=== PATIENT | female | born 1940 | race Caucasian/White ===

== ENCOUNTER 2020-06-11 17:36 | Inpatient (IN) | payer OTHER ==
[2020-06-11 19:05] LABS: Absolute Lymphocytes (CBC) 0.8 K/uL (0.7-4.9); Basophils % 0.1 % (0-1.3); Hematocrit 34.5 % (36.0-45.0); Lymphocytes % 11.1 % (15.3-44.8); MPV 9.6 fL (7.6-11.3); RBC Red Blood Cell Count 3.71 M/uL (3.86-4.86)
[2020-06-11 19:10] LABS: Protime INR 0.97
[2020-06-11 19:29] LABS: ALT/SGPT 15 U/L (12-78); AST/SGOT 25 U/L (15-37); Albumin 3.6 g/dL (3.4-5.0); Alkaline Phosphatase 59 U/L (45-117); Amylase 54 U/L (25-115); BUN Blood Urea Nitrogen 35 mg/dL (7-18); Bicarbonate 29 mmol/L (21-32); Bilirubin Direct 0.2 mg/dL (0-0.2); Bilirubin Total 0.6 mg/dL (0.2-1.0); CKMB Creatine Kinase MB < 1.0 ng/mL (0.3-3.6); Creatine Phosphokinase 103 U/L (26-192); Glucose Level 160 mg/dL (74-106); Lipase 169 U/L (73-393); Protein, Total 8.2 g/dL (6.4-8.2); Sodium Level 133 mmol/L (136-145); Troponin (Emerg Dept Use Only) < 0.02 ng/mL (0.0-0.045)
--- NOTE | 2020-06-11 19:34 | EDPHYS ---
Physician Documentation [facility] Name: Leigh Ann Galindo Age: 79 yrs Sex: Female : 1940 Arrival Date: 06/11/2020 Time: 17:40 Bed 2 Private MD: Justin Cordero R ED Physician Laurent Steel HPI: 06/11 18:59 This 79 yrs old Female presents to ER via Ambulatory with complaints of irais Abdominal Pain - bloating/indigestion. 18:59 The patient presents with abdominal pain abdominal distention in the upper abdomen, in irais the lower abdomen. Onset: The symptoms/episode began/occurred 2 day(s) ago. The patient presents to the emergency department with nausea, vomiting, abdominal pain, of the right upper quadrant, left upper quadrant, right lower quadrant and left lower quadrant. Onset: The symptoms/episode began/occurred 2 day(s) ago. Possible causes: unknown. The symptoms are aggravated by nothing. pressure, food , The symptoms are alleviated by nothing. remaining still. abdominal pain and vomiting, low grade fever. Associated signs and symptoms: Pertinent positives: abdominal pain, fever, nausea, vomiting. Associated signs and symptoms: Pertinent positives: nausea and vomiting, fever, vomiting. Historical: - Allergies: 18:10 No Known Allergies; em - PMHx: 18:10 Hypertension; "hemorrhoid cancer"; em - PSHx: 18:10 None; em - Immunization history:: Adult Immunizations not up to date. - Social history:: Smoking status: Patient denies any tobacco usage or history of. - Family history:: not pertinent. ROS: 18:59 Eyes: Negative for injury, pain, redness, and discharge, ENT: Negative for injury, irais pain, and discharge, Neck: Negative for injury, pain, and swelling, Respiratory: Negative for shortness of breath, cough, wheezing, and pleuritic chest pain, Back: Negative for injury and pain, : Negative for injury, bleeding, discharge, and swelling, MS/Extremity: Negative for injury and deformity, Skin: Negative for injury, rash, and discoloration, Neuro: Negative for headache, weakness, numbness, tingling, and seizure, Psych: Negative for depression, anxiety, suicide ideation, homicidal ideation, and hallucinations, Allergy/Immunology: Negative for hives, rash, and allergies, Endocrine: Negative for neck swelling, polydipsia, polyuria, polyphagia, and marked weight changes, Hematologic/Lymphatic: Negative for swollen nodes, abnormal bleeding, and unusual bruising. 18:59 Constitutional: Positive for body aches, chills, fatigue, malaise. 18:59 Cardiovascular: Positive for palpitations. 18:59 Respiratory: Negative for cough, dyspnea on exertion, orthopnea, shortness of breath. 18:59 Abdomen/GI: Positive for abdominal pain, nausea and vomiting, nausea, vomiting, abdominal cramps, abdominal distension. Exam: 18:59 Constitutional: This is a well developed, well nourished patient who is awake, alert, irais and in no acute distress. Head/Face: Normocephalic, atraumatic. Eyes: Pupils equal round and reactive to light, extra-ocular motions intact. Lids and lashes normal. Conjunctiva and sclera are non-icteric and not injected. Cornea within normal limits. Periorbital areas with no swelling, redness, or edema. ENT: Nares patent. No nasal discharge, no septal abnormalities noted. Tympanic membranes are normal and external auditory canals are clear. Oropharynx with no redness, swelling, or masses, exudates, or evidence of obstruction, uvula midline. Mucous membranes moist. Neck: Trachea midline, no thyromegaly or masses palpated, and no cervical lymphadenopathy. Supple, full range of motion without nuchal rigidity, or vertebral point tenderness. No Meningismus. Chest/axilla: Normal chest wall appearance and motion. Nontender with no deformity. No lesions are appreciated. Abdomen/GI: Soft, non-tender, with normal bowel sounds. No distension or tympany. No guarding or rebound. No evidence of tenderness throughout. Back: No spinal tenderness. No costovertebral tenderness. Full range of motion. Female : Normal external genitalia. Skin: Warm, dry with normal turgor. Normal color with no rashes, no lesions, and no evidence of cellulitis. MS/ Extremity: Pulses equal, no cyanosis. Neurovascular intact. Full, normal range of motion. Neuro: Awake and alert, GCS 15, oriented to person, place, time, and situation. Cranial nerves II-XII grossly intact. Motor strength 5/5 in all extremities. Sensory grossly intact. Cerebellar exam normal. Normal gait. Psych: Awake, alert, with orientation to person, place and time. Behavior, mood, and affect are within normal limits. 18:59 Cardiovascular: Rate: tachycardic, Rhythm: regular, Pulses: Pulses are 4+ in bilateral radial, brachial, femoral, popliteal, posterior tibial and and dorsalis pedis arteries.. Heart sounds: normal, Edema: is not appreciated, JVD: is not appreciated. 18:59 Respiratory: the patient does not display signs of respiratory distress, Respirations: normal, Breath sounds: are clear throughout. 18:59 Abdomen/GI: Inspection: distension, Bowel sounds: active, Palpation: moderate abdominal tenderness, in all quadrants, Liver: no appreciated palpable abnormalities, Hernia: not appreciated. 19:03 ECG was reviewed by the Attending Physician. irais Vital Signs: 18:06 BP 88 / 69; Pulse 102; Resp 20 S; Temp 99.4(O); Pulse Ox 96% on R/A; Weight 70.31 kg; em Height 5 ft. 7 in. (170.18 cm); Pain 7/10; 20:33 BP 104 / 56; Pulse 79; Resp 19; Pulse Ox 95% on R/A; ea 21:30 Pulse 86; Resp 18; Temp 98.8(O); Pulse Ox 98% ; rv 22:51 BP 110 / 60; Pulse 80; Resp 18; Pulse Ox 98% on R/A; ea 18:06 Body Mass Index 24.28 (70.31 kg, 170.18 cm) em MDM: 18:19 Patient medically screened. irais 19:34 Differential Diagnosis sepsis. Differential diagnosis: Nonspecific abd pain, irais cholecystitis, pancreatitis, appendicitis, diverticulitis, viral gastroenteritis, gastroenteritis, AAA, bowel obstruction, cholecystitis, Cholelithiasis, diverticulitis, Mesenteric ischemia or infarction, pancreatitis, Peptic Ulcer Disease, Peritonitis, Pyelonephritis, Ureterolithiasis, urinary tract infection. Data reviewed: vital signs, nurses notes, EMS record, lab test result(s), amylase and lipase, CBC, electrolytes, hepatic panel, urinalysis, EKG, radiologic studies, CT scan, plain films. Data interpreted: wall taper helper: rate is 102 beats/min, Pulse oximetry: on room air is 96 %. Test interpretation: by ED physician or midlevel provider: ECG, plain radiologic studies. Counseling: I had a detailed discussion with the patient and/or guardian regarding: the historical points, exam findings, and any diagnostic results supporting the discharge/admit diagnosis, lab results, radiology results, the need for further work-up and treatment in the hospital. ED course: fever , abd pain, vomiting,voluntary guarding, ct pending, acute renal failure. 20:43 Physician consultation: Shaggy Mayers MD and will see patient in inpatient room, [facility] tomorrow. ED course: pt improved, pain decreased. 06/11 18:42 Order name: Amylase, Serum; Complete Time: 19:31 06/11 18:42 Order name: Basic Metabolic Panel; Complete Time: 19:31 sv 06/11 18:42 Order name: Blood Culture Adult (2) sv 06/11 18:42 Order name: CBC with Diff; Complete Time: 19:28 06/11 18:42 Order name: Ckmb; Complete Time: 19:31 sv 06/11 18:42 Order name: CPK; Complete Time: 19:31 06/11 18:42 Order name: Lactate; Complete Time: 19:28 06/11 18:42 Order name: LFT's; Complete Time: 19:31 sv 06/11 18:42 Order name: Lipase; Complete Time: 19:31 sv 06/11 18:42 Order name: Procalcitonin; Complete Time: 20:23 sv 06/11 18:42 Order name: Protime (+inr); Complete Time: 19:28 sv 06/11 18:42 Order name: Ptt, Activated; Complete Time: 19:28 06/11 18:42 Order name: Troponin (emerg Dept Use Only); Complete Time: 19:31 06/11 18:42 Order name: Urine Microscopic Only 06/11 18:42 Order name: Chest Single View XRAY; Complete Time: 20:23 06/11 18:42 Order name: Cardiac monitoring; Complete Time: 19:01 06/11 18:42 Order name: EKG - Nurse/Tech; Complete Time: 19:01 06/11 18:58 Order name: Magnesium; Complete Time: 20:23 [facility] 06/11 18:58 Order name: NT PRO-BNP; Complete Time: 20:23 [facility] 06/11 18:58 Order name: EKG; Complete Time: 18:58 [facility] 06/11 19:42 Order name: Abdomen ; Complete Time: 20:23 EDMS 06/11 18:42 Order name: IV Saline Lock - Large Bore; Complete Time: 19:01 sv 06/11 18:42 Order name: Labs collected and sent; Complete Time: 19:01 sv 06/11 18:42 Order name: O2 Per Protocol; Complete Time: 19:01 sv 06/11 18:42 Order name: O2 Sat Monitoring; Complete Time: 19:01 sv 06/11 18:58 Order name: IV Saline Lock; Complete Time: 19:01 irais 06/11 20:41 Order name: NG Tube; Complete Time: 20:53 irais 06/11 20:45 Order name: NPO; Complete Time: 20:53 irais EC:03 Rate is 89 beats/min. Rhythm is regular. QRS [place] is Normal. NH interval is normal. QRS irais interval is normal. QT interval is normal. No Q waves. T waves are Normal. No ST changes noted. Clinical impression: NSR w/ Non-specific ST/T Changes and No evidence of ischemia. Interpreted by me. Reviewed by me. Administered Medications: 19:15 Drug: morphine 2 mg Route: IVP; Site: left antecubital; ea 21:28 Follow up: Response: No adverse reaction; Marked relief of symptoms; Pain is decreased; rv RASS: Alert and Calm (0) 20:15 Drug: Rocephin 1 grams Route: IV; Rate: per protocol; Site: left antecubital; ea 21:28 Follow up: Response: No adverse reaction; IV Status: Completed infusion rv 20:31 Drug: NS 0.9% (30 ml/kg) 30 ml/kg Route: IV; Rate: bolus; Site: left antecubital; ea 21:28 Follow up: IV Status: Completed infusion rv 21:29 Follow up: IV Intake: 2000ml rv 20:31 Drug: Pepcid 20 mg Route: IVP; Site: left antecubital; ea 21:27 Follow up: Response: No adverse reaction rv 20:32 Drug: Zofran (Ondansetron) 4 mg Route: IVP; Site: left antecubital; ea 21:28 Follow up: Response: No adverse reaction rv 20:32 Drug: Flagyl 500 mg Volume: 100 ml; Route: IVPB; Rate: 200 ml/hr; Infused Over: 30 ea mins; Site: left antecubital; 21:28 Follow up: IV Status: Completed infusion rv 21:45 Drug: Magnesium Sulfate 2 grams Route: IVPB; Infused Over: 2 hrs; Site: left ea antecubital; 22:23 Follow up: IV Status: Infusion continued upon admission rv Disposition: 06/11/20 19:34 Hospitalization ordered by Scott Hughes for Inpatient Admission. Preliminary diagnosis are Abdominal tenderness, Fever, unspecified, Unspecified kidney failure - acute on chronic, Vomiting, Hypomagnesemia, Other intestinal obstruction - mechanical small bowel obstruction. - Bed requested for Telemetry/MedSurg (Inpatient). - Status is Inpatient Admission. ea - Condition is Stable. - Problem is new. - Symptoms have improved. Signatures: Dispatcher [employer] EDMT Joan Liu, RN Laurent Nguyen MD MD cha Munoz, Edgar, RN RN em Nino Lawler, EXECUTIVE VICE PRESIDENT OF SALES-C EXECUTIVE VICE PRESIDENT OF SALES-Cla1 Dolly Avila RN RN Rochelle Robles RN RN ea Vicente, Ronaldo RN rv Corrections: (The following items were deleted from the chart) 19:42 18:58 Abdomen Pelvis W Con+CT.RAD.BRZ ordered. EDMT EDMT 20:43 19:34 Hospitalization Ordered by Scott Hughes DO for Inpatient Admission. Preliminary irais diagnosis is Abdominal tenderness; Fever, unspecified; Unspecified kidney failure - acute on chronic; Vomiting. Bed requested for Telemetry/MedSurg (Inpatient). Status is Inpatient Admission. Condition is Stable. Problem is new. Symptoms have improved. irais 21:23 20:43 06/11/2020 19:34 Hospitalization Ordered by Scott Hughes DO for Inpatient cg Admission. Preliminary diagnosis is Abdominal tenderness; Fever, unspecified; Unspecified kidney failure - acute on chronic; Vomiting; Hypomagnesemia; Other intestinal obstruction - mechanical small bowel obstruction. Bed requested for Telemetry/MedSurg (Inpatient). Status is Inpatient Admission. Condition is Stable. Problem is new. Symptoms have improved. irais 22:50 21:23 06/11/2020 19:34 Hospitalization Ordered by Scott Hughes DO for Inpatient ea Admission. Preliminary diagnosis is Abdominal tenderness; Fever, unspecified; Unspecified kidney failure - acute on chronic; Vomiting; Hypomagnesemia; Other intestinal obstruction - mechanical small bowel obstruction. Bed requested for Telemetry/MedSurg (Inpatient). Status is Inpatient Admission. Condition is Stable. Problem is new. Symptoms have improved. cg
--- NOTE | 2020-06-11 19:34 | ER ---
Nurse's Notes [facility] Name: Leigh Ann Galindo Age: 79 yrs Sex: Female : 1940 Arrival Date: 06/11/2020 Time: 17:40 Bed 2 Private MD: Justin Cordero R Diagnosis: Abdominal tenderness;Fever, unspecified;Unspecified kidney failure-acute on chronic;Vomiting;Hypomagnesemia;Other intestinal obstruction-mechanical small bowel obstruction Presentation: 06/11 18:06 Chief complaint: Patient states: lower abd pain started yesterday, N/V, denies fever. em Coronavirus screen: Client denies travel out of the [place] in the last 14 days. Ebola Screen: Patient negative for fever greater than or equal to 101.5 degrees Fahrenheit, and additional compatible Ebola Virus Disease symptoms Patient denies exposure to infectious person. Patient denies travel to an Ebola-affected area in the 21 days before illness onset. No symptoms or risks identified at this time. Initial Sepsis Screen: Does the patient meet any 2 criteria? Systolic BP < 90 mmHg. HR > 90 bpm. Yes Does the patient have a suspected source of infection? Yes: Acute abdominal pain. Risk Assessment: Do you want to hurt yourself or someone else? Patient reports no desire to harm self or others. Onset of symptoms was June 10, 2020. 18:06 Method Of Arrival: Ambulatory em 18:06 Acuity: JESSICA 2 em Historical: - Allergies: 18:10 No Known Allergies; em - PMHx: 18:10 Hypertension; "hemorrhoid cancer"; em - PSHx: 18:10 None; em - Immunization history:: Adult Immunizations not up to date. - Social history:: Smoking status: Patient denies any tobacco usage or history of. - Family history:: not pertinent. Screenin:58 Abuse screen: Denies threats or abuse. Denies injuries from another. Nutritional sv screening: No deficits noted. Tuberculosis screening: No symptoms or risk factors identified. Fall Risk None identified. Assessment: 18:12 Reassessment: code sepsis called. em 18:50 General: Appears in no apparent distress. uncomfortable, well developed, Behavior is sv calm, cooperative, appropriate for age. Pain: Complains of pain in abdomen Pain currently is 7 out of 10 on a pain scale. Quality of pain is described as bloated Pain began 1 day ago. Is continuous, Also complains of constipation. Neuro: Level of Consciousness is awake, alert, obeys commands, Oriented to person, place, time, situation, Moves all extremities. Full function Gait is steady, Speech is normal. Cardiovascular: Patient's skin is warm and dry. Respiratory: Airway is patent Respiratory effort is even, unlabored, Respiratory pattern is regular, symmetrical. GI: Abdomen is round distended, Abd is soft X 4 quads Abdomen is tender to palpation X 4 quads. Reports constipation, intolerance of fluids, intolerance of food, nausea, vomiting, vomiting brown liquid. Derm: Skin is pink, warm \\T\\ dry. Musculoskeletal: Range of motion: intact in all extremities. 21:30 GI: Bowel sounds present X 4 quads. rv 22:40 Reassessment: Patient and/or family updated on plan of care and expected duration. Pain ea level reassessed. Patient is alert, oriented x 3, equal unlabored respirations, skin warm/dry/pink. Pt admitted to second floor, left ED via stretcher per tech. pt tolerating well. Vital Signs: 18:06 BP 88 / 69; Pulse 102; Resp 20 S; Temp 99.4(O); Pulse Ox 96% on R/A; Weight 70.31 kg; em Height 5 ft. 7 in. (170.18 cm); Pain 7/10; 20:33 BP 104 / 56; Pulse 79; Resp 19; Pulse Ox 95% on R/A; ea 21:30 Pulse 86; Resp 18; Temp 98.8(O); Pulse Ox 98% ; rv 22:51 BP 110 / 60; Pulse 80; Resp 18; Pulse Ox 98% on R/A; ea 18:06 Body Mass Index 24.28 (70.31 kg, 170.18 cm) em ED Course: 17:40 Patient arrived in ED. as 17:40 Justin Cordero MD is Private Physician. as 18:08 Triage completed. em 18:10 Arm band placed on. em 18:19 Laurent Setel MD is Attending Physician. irais 18:50 gambling monitor on. Pulse ox on. NIBP on. Door closed. Head of bed elevated. sv 18:50 Inserted saline lock: 20 gauge in left antecubital area, using aseptic technique. dh3 18:50 Initial lab(s) drawn, by me, sent to lab. First set of blood cultures drawn by me. dh3 18:52 EKG done, by ED staff, reviewed by Laurent Steel MD. sv 18:52 Second set of blood cultures drawn by ED staff. dh3 18:58 Patient has correct armband on for positive identification. Placed in gown. Bed in low sv position. Call light in reach. 19:00 Report given to Dawit AGUSTIN and Rochelle AGUSTIN. sv 19:32 Scott Hughes DO is Hospitalizing Provider. irais 19:54 Rochelle Robles, NIKOLE is Primary Nurse. ea 19:58 Chest Single View XRAY In Process Unspecified. EDMS 19:58 Abdomen In Process Unspecified. EDMS 21:15 NGT: inserted 16 Fr. via right nare. verified placement of air over stomach, to rv intermittent suction. Returned gastric contents. Amount of gastric contents removed by suction 500ml. Patient tolerated well. 21:29 No provider procedures requiring assistance completed. IV is patent, with fluids rv infusing freely, with good blood return, Patient admitted, IV remains in place. Administered Medications: 19:15 Drug: morphine 2 mg Route: IVP; Site: left antecubital; ea 21:28 Follow up: Response: No adverse reaction; Marked relief of symptoms; Pain is decreased; rv RASS: Alert and Calm (0) 20:15 Drug: Rocephin 1 grams Route: IV; Rate: per protocol; Site: left antecubital; ea 21:28 Follow up: Response: No adverse reaction; IV Status: Completed infusion rv 20:31 Drug: NS 0.9% (30 ml/kg) 30 ml/kg Route: IV; Rate: bolus; Site: left antecubital; ea 21:28 Follow up: IV Status: Completed infusion rv 21:29 Follow up: IV Intake: 2000ml rv 20:31 Drug: Pepcid 20 mg Route: IVP; Site: left antecubital; ea 21:27 Follow up: Response: No adverse reaction rv 20:32 Drug: Zofran (Ondansetron) 4 mg Route: IVP; Site: left antecubital; ea 21:28 Follow up: Response: No adverse reaction rv 20:32 Drug: Flagyl 500 mg Volume: 100 ml; Route: IVPB; Rate: 200 ml/hr; Infused Over: 30 ea mins; Site: left antecubital; 21:28 Follow up: IV Status: Completed infusion rv 21:45 Drug: Magnesium Sulfate 2 grams Route: IVPB; Infused Over: 2 hrs; Site: left ea antecubital; 22:23 Follow up: IV Status: Infusion continued upon admission rv Intake: 21:29 IV: 2000ml; Total: 2000ml. rv Outcome: 19:34 Decision to Hospitalize by Provider. [facility] 21:30 Admitted to Med/surg room 207. rv 21:30 Condition: stable 21:30 Instructed on the need for admit. 22:24 Admitted to Med/surg accompanied by tech, via stretcher, with chart, Report called to rv MARISA RN 22:50 Patient left the ED. ea Signatures: Dispatcher [employer] Joan Anne, RN RN Laurent Crowley MD MD cha Munoz, Edgar, RN Pilar Oh Deanna [facility] Rochelle Robles, RN Dawit Maher ea, RN RN rv Corrections: (The following items were deleted from the chart) 18:59 18:56 Inserted saline lock: 20 gauge in left antecubital area, using aseptic technique. 3 3
[2020-06-11] MEDS ORDERED: MORPHINE 4 MG/ML SYR ONE (19:35)
[2020-06-11] MEDS ORDERED: CEFTRIAXONE/SWI 1gm 1 GM/10 ML SYR ONE (19:36)
[2020-06-11] MEDS ORDERED: FAMOTIDINE 20 MG/2 ML VIAL IV ONE (19:36)
[2020-06-11] MEDS ORDERED: ACETAMINOPHEN 650MG/RECT SUPP PR ONE (19:36)
[2020-06-11] MEDS ORDERED: NA CHLORIDE 0.9% 2,000 ML ONE ×2 (19:36→20:26)
[2020-06-11] MEDS ORDERED: ONDANSETRON 4 MG/2 ML VIAL ONE (19:36)
[2020-06-11] MEDS ORDERED: METRONIDAZOLE 500mg IVPB 500 MG/100 ML BAG IV ONE (19:36)
--- NOTE | 2020-06-11 20:04 | RAD REPORT ---
EXAM DESCRIPTION: RAD - Chest Single View - 06/11/2020 7:57 pm CLINICAL HISTORY: code sepsis Chest pain. COMPARISON: Chest Pa And Lat (2 Views) dated 11/01/2019; Chest Pa And Lat (2 Views) dated 10/03/2019; C HEST SINGLE VIEW dated 01/02/2012; CHEST SINGLE VIEW dated 11/10/2011 FINDINGS: Portable technique limits examination quality. The lungs are grossly clear. The heart is normal in size. No displaced fractures. IMPRESSION: No acute intrathoracic process suspected.
--- NOTE | 2020-06-11 20:10 | RAD REPORT ---
EXAM DESCRIPTION: CT - Abdomen Pelvis Wo Contrast - 06/11/2020 7:58 pm CLINICAL HISTORY: Abdominal pain. ABD PAIN COMPARISON: CT ABD PELVIS W CONTRAST dated 05/02/2013 TECHNIQUE: CT imaging of the abdomen and pelvis was performed without contrast. Solid organ and vasc ular assessment is limited due to lack of IV contrast. All CT scans are performed using dose optimization technique as appropriate and may include automated exposure control or mA/KV adjustment according to patient size. FINDINGS: The lower lung guaman are clear. The liver, spleen, pancreas, adrenal glands are within normal limits for a limited non-contrast exami nation.Small bilateral renal calculi are seen without hydronephrosis. Significant distention of small bowel loops identified with mild free fluid in the abdomen pelvis, co mpatible with moderate mechanical small-bowel obstruction. A discrete point of transition is difficul t to ascertain. No pneumoperitoneum. Within the right aspect of the small bowel mesentery a 2 cm soft tissue lesion is noted which is of unclear etiology but may represent an enlarged lymph node or a sm all mesenteric mass. The appendix is normal. The osseous structures are within normal limits. IMPRESSION: Moderate grade mechanical small bowel obstruction is seen with mild free fluid in the ab domen and pelvis. 2 cm soft tissue lesion is seen in the right aspect of the small bowel mesentery may represent a mese nteric lymph node or small mesenteric mass. Bilateral nephrolithiasis without hydronephrosis. A limited non-contrast examination was performed as detailed.
[2020-06-11 20:18] LABS: Magnesium 1.6 mg/dL (1.8-2.4)
--- NOTE | 2020-06-11 21:13 | P.HP ---
Certification for Inpatient Patient admitted to: Inpatient With expected LOS: >2 Midnights Patient will require the following post-hospital care: None Practitioner: I am a practitioner with admitting privileges, knowledge of patient current condition, hospital course, and medical plan of care. Services: Services provided to patient in accordance with Admission requirements found in Title 42 Section 412.3 of the Code of Federal Regulations <Nino Lawler - Last Filed: 06/11/20 21:05> Patient History Date of Service: 06/11/20 Primary Care Provider: Dr Cordero Reason for admission: Small-bowel obstruction History of Present Illness: 79-year-old female with medical history of hypertension, colon cancer presents the emergency department for abdominal distention, nausea, vomiting. Patient reports that she began to the abdominal pain yesterday morning and has since gotten worse. Patient also reports some abdominal distension. Patient reports history of cancer although she is unaware of the exact location the cancer approximately 7 years ago which she is treated for at that time. Patient was evaluated in the emergency department and found to have a moderate mechanical small bowel obstruction with mild free fluid present. Patient also noted to have acute kidney injury with creatinine of 2.55 and GFR of 18. ED provider wishes to admit patient for further evaluation and management. When I saw the patient in the emergency department she was awake, alert, oriented x4. Patient reports moderate lower abdominal pain with some distention. Bowel sounds diminished. Patient still with some vomiting, will have NG tube placed in the emergency department. Surgery was consulted while patient was in the emergency department and will see the patient. - Past Medical/Surgical History Diabetic: No -: Hypertension -: Colon Ca 2013 Chemo/radiation -: Hysterectomy -: Tubal ligation -: Port placement and removal Psychosocial/ Personal History: Patient lives at home with her - Family History Family History: Reviewed- Non-Contributory - Social History Smoking Status: Never smoker Alcohol use: No CD- Drugs: No Caffeine use: Yes Place of Residence: Home <Nino Lawler - Last Filed: 06/11/20 21:05> Date of Service: 06/12/20 Home medications list reviewed: Yes <Scott Hughes - Last Filed: 06/12/20 09:29> Allergies No Known Allergies Allergy (Verified 06/11/20 23:00) Home Medications: Latanoprost [Xalatan] 1 drops OP DAILY 01/02/12 Lisinopril/Hydrochlorothiazide [Lisinopril-Hctz 10-12.5 mg Tab] 10 - 12.5 tab PO DAILY 01/02/12 Multi-VIT,(RENAL) [Centrum Silver] 1 each PO DAILY 01/02/12 Cirtrus Bioflavonoids 1,000 mg PO BID 08/29/14 Flaxseed [Flaxseed Oil] 1,800 mg PO DAILY 08/29/14 Joint Soother PO BID 08/29/14 Kyolic Aged Garlic Extract PO DAILY 08/29/14 [place]-3 Fatty Acids/Fish Oil [Fish Oil 1,000 mg Softgel] 1 each PO DAILY 08/29/14 Vitamin E [E-Vitamin] 400 iu PO DAILY 08/29/14 Review of Systems 10-point ROS is otherwise unremarkable Gastrointestinal: Vomiting, Abdominal Pain, Distention, Constipation <Nino Lawler - Last Filed: 06/11/20 21:05> Physical Examination - Physical Exam General: Alert, In no apparent distress, Oriented x3 HEENT: Atraumatic, Normocephalic, PERRLA, Mucous membr. moist/pink Neck: Supple Respiratory: Clear to auscultation bilaterally, Normal air movement Cardiovascular: No edema Capillary refill: <2 Seconds Gastrointestinal: Hypoactive, No rebound, No guarding, Distended, Tenderness Musculoskeletal: No contractures, No erythema, No tenderness Integumentary: No breakdown, No significant lesion, No tenderness/swelling Neurological: Normal strength at 5/5 x4 extr, Normal tone - Studies Laboratory Data (last 24 hrs) 06/11/20 18:50: Magnesium 1.6 L 06/11/20 18:50: PT 11.4, INR 0.97, APTT 26.3 06/11/20 18:50: WBC 7.2, Hgb 11.4 L, Hct 34.5 L, Plt Count 215 06/11/20 18:50: Sodium 133 L, Potassium 4.0, BUN 35 H, Creatinine 2.55 H, Glucose 160 H, Total Bilirubin 0.6, AST 25, ALT 15, Alkaline Phosphatase 59, Amylase 54, Lipase 169 <Nino Lawler - Last Filed: 06/11/20 21:05> - Studies Laboratory Data (last 24 hrs) 06/11/20 18:50: Magnesium 1.6 L 06/11/20 18:50: PT 11.4, INR 0.97, APTT 26.3 06/11/20 18:50: WBC 7.2, Hgb 11.4 L, Hct 34.5 L, Plt Count 215 06/11/20 18:50: Sodium 133 L, Potassium 4.0, BUN 35 H, Creatinine 2.55 H, Glucose 160 H, Total Bilirubin 0.6, AST 25, ALT 15, Alkaline Phosphatase 59, Amylase 54, Lipase 169 <Scott Hughes - Last Filed: 06/12/20 09:29> Assessment and Plan - Plan Assessment Moderate mechanical small bowel obstruction Acute kidney injury with underlying chronic kidney disease Hypertension History of colon cancer Plan Moderate mechanical small bowel obstruction: General surgery was consulted while patient was in the emergency department. Patient will have NG tube placed to low intermittent wall suction. NPO. DVT prophylaxis with SCDs at this time. Pain medication and nausea medication as needed. Appreciate further input from general surgery. Acute kidney injury with underlying chronic kidney disease: Patient with underlying chronic kidney disease stage 3. GFR today is 18, patient likely dehydrated. Will continue with gentle hydration overnight and place consult for nephrology for further input. Hypertension: Will continue to monitor blood pressure closely. Will hold medications at this time as blood pressure is relatively low. History of colon cancer: After resolution of bowel obstruction patient will require outpatient colonoscopy for further evaluation. Discharge Plan: Home Plan to discharge in: 72 Hours - Advance Directives Does patient have a Living Will: Yes Does patient have a Durable POA for Healthcare: Yes - Code Status/Comfort Care Code Status Assessed: Yes (Patient is full code) Critical Care: No Time Spent Managing Pts Care (In Minutes): 55 <Nino Lawler - Last Filed: 06/11/20 21:05> - Plan Case discussed at length with nurse practitioner. Continue plan of care. Patient currently NPO with intermittent suction. Will discuss further with surgery and nephrology. Please review progress note today for details <Scott Hughes - Last Filed: 06/12/20 09:29>
[2020-06-11] MEDS ORDERED: Magnesium Sulfate 2gm IVPB 2 G/50 ML BAG IV ONE (21:27)
[2020-06-11 23:17] VITALS: BMI 25.0
[2020-06-11] MEDS: D5 0.45 NS 1,000 ML IV SCH (23:26)
[2020-06-12 04:54] LABS: Absolute Lymphocytes (CBC) 0.5 K/uL (0.7-4.9); Basophils % 0.3 % (0-1.3); Hematocrit 30.2 % (36.0-45.0); Lymphocytes % 15.5 % (15.3-44.8); MPV 9.8 fL (7.6-11.3); RBC Red Blood Cell Count 3.21 M/uL (3.86-4.86)
[2020-06-12 05:22] LABS: Magnesium 2.1 mg/dL (1.8-2.4); Potassium 4.4 mmol/L (3.5-5.1); Thyroid Stimulating Hormone 0.499 uIU/mL (0.360-3.740)
[2020-06-12] MEDS: D5 0.45 NS 1,000 ML IV SCH ×2 (06:51→18:39)
[2020-06-12 07:16] LABS: Blood Morphology Comment NOTED (NOT SEEN); Platelet Estimate ADEQ; White Blood Cell Scan OK
[2020-06-12] MEDS ORDERED: PNEUMOCOCCAL VACCINE 0.5 ML IMVAC ONE (09:00)
[2020-06-12] MEDS ORDERED: NA CHLORIDE 0.9% 500 ML IV ONE (09:18)
--- NOTE | 2020-06-12 09:28 | P.PN ---
Subjective Date of Service: 06/12/20 Primary Care Provider: Dr Cordero Chief Complaint: Small-bowel obstruction Subjective: Doing well (No pain. No passage of stool or gas) Physical Examination - Vital Signs Temperature: 98.7 F Blood Pressure: 99/49 Pulse: 80 Respirations: 16 Pulse Ox (%): 93 - Physical Exam General: Alert, Cooperative HEENT: Atraumatic Neck: Supple Respiratory: Clear to auscultation bilaterally Cardiovascular: Normal pulses, Regular rate/rhythm Gastrointestinal: Hypoactive, Non-distended, No tenderness, No rebound Neurological: Normal speech, Normal strength at 5/5 x4 extr, Normal tone - Studies Laboratory Data (last 24 hrs) 06/11/20 18:50: Magnesium 1.6 L 06/11/20 18:50: PT 11.4, INR 0.97, APTT 26.3 06/11/20 18:50: WBC 7.2, Hgb 11.4 L, Hct 34.5 L, Plt Count 215 06/11/20 18:50: Sodium 133 L, Potassium 4.0, BUN 35 H, Creatinine 2.55 H, Glucose 160 H, Total Bilirubin 0.6, AST 25, ALT 15, Alkaline Phosphatase 59, Amylase 54, Lipase 169 Medications List Reviewed: Yes Assessment & Plan Discharge Plan: Home Plan to discharge in: 72 Hours Physician Review Additional Text: Assessment Nausea, vomiting and abdominal pain secondary to moderate mechanical small bowel obstruction with 2 cm soft tissue lesion in the right aspect of the small-bowel likely mesenteric lymph node verses mass with history of colon cancer Acute chronic kidney disease stage 2 Hypertension Anemia likely of chronic disease Plan Nausea, vomiting and abdominal pain secondary to moderate mechanical small bowel obstruction with 2 cm soft tissue lesion in the right aspect of the small-bowel likely mesenteric lymph node verses mass with history of colon cancer: Continue with IV fluids. Will give fluid bolus today. Patient remains on low intermittent suction with NG tube in place. Will start DVT prophylaxis-heparin. Patient remains NPO. Surgery and nephrology has been consulted. Will also discuss with family and investigate history of colon cancer further. Patient not able to give accurate history. If no significant improvement patient may require surgical intervention. I will turn the service over to the hospitalist team tomorrow. I will go plan of care with him. Acute chronic kidney disease stage 2: Continue IV fluid hydration. Will provide bolus this morning. Continue to hold lisinopril. Nephrology consulted. Await further recommendation. Hypertension: Discontinue lisinopril. Will monitor this closely. Anemia likely of chronic disease: Will monitor this closely. Will check iron and B12 studies. Maintain hemoglobin above 8.0. Time Spent Managing Pts Care (In Minutes): 55
--- NOTE | 2020-06-12 12:04 | CON ---
Date of Consultation: 06/12/2020 Reason For Service: Small bowel obstruction. History Of Present Illness: This is a case of an 79-year-old patient with history of colon cancer th at she says was treated by a local [facility] with a chemotherapy several years ago with no surger ies. Now, she felt in the last few months that her stomach is making a lot of noise and that was com bined with abdominal distention, nausea, vomiting yesterday and she decided to come to the ER. She c annot give much of information. She said her cancer was treated about 7 years ago, but during the CA T scan, they found to have a mass in the mesentery. She denies any dysuria, hematuria, hematochezia, melena. Denies any recent traveling out of the country. Denies any family member sick at home. Review of Systems: No shortness of breath. No chest pain. No fever. Ten points otherwise unremarkable. Past Medical History: Hypertension. Colon cancer in 2013 that she received chemoradiation therapy, she states she did not have surgery. Past Surgical History: Hysterectomy, tubal ligation, Port-A-Cath placement. Family History: Noncontributory. Social History: She does not smoke. She does not drink alcohol. Medications: Reviewed. Physical Examination: General: The patient is awake and alert. HEENT: Pupils are equal and reactive, anicteric. Neck: Supple. Chest: Clear. Abdomen: Soft and depressible. No guarding or rebound. Mildly distended. Extremities: Good capillary refill. Laboratory Data: Blood work shows WBC count of 7.2, hemoglobin of 11.4, INR of 0.97, creatinine is 2 .55, potassium is 4.0. Imaging: CAT scan of the abdomen and pelvis interpreted by Dr. Tan as moderate grade mechanical sma ll-bowel obstruction. Mild free fluid in the abdomen. A 2 cm soft tissue lesion is seen in the righ t aspect of the small bowel mesentery, may represent a mesenteric lymph node or mesenteric mass. The patient has bilateral kidney stone without hydronephrosis. Assessment: This is an 79-year-old patient with history of colon cancer, chemo and radiation therapy , never surgery. Now comes with small bowel obstruction in the mesentery and large lymph node or mas s. We going to get a Hematology Oncology consult. The patient cannot give us the information in det ails and we will like to have information from them to see if they believe this is just an old findin g or it a new finding. If there is a new finding and if the biopsy is needed. I will follow the pat ietaya with you and give more recommendations as the case develops. In the meantime, bowel rest. OLY/JASON Voice ID: [id number] Report ID: [id number]
--- NOTE | 2020-06-12 15:10 | P.CNS ---
Date of Consult: 06/12/20 Reason for Consult: ILYA Requesting Physician: Scott Hughes Primary Care Provider: Dr Cordero Chief Complaint: Small-bowel obstruction History of Present Illness: 79-year-old female with medical history of hypertension, colon cancer presents the emergency department for abdominal distention, nausea, vomiting. Patient reports that she began to the abdominal pain yesterday morning and has since gotten worse. Patient also reports some abdominal distension. Patient reports history of cancer although she is unaware of the exact location the cancer approximately 7 years ago which she is treated for at that time. Patient was evaluated in the emergency department and found to have a moderate mechanical small bowel obstruction with mild free fluid present. Patient also noted to have acute kidney injury with creatinine of 2.55 and GFR of 18. ED provider wishes to admit patient for further evaluation and management. 18:59 This 79 yrs old Female presents to ER via Ambulatory with complaints of irais Abdominal Pain - bloating/indigestion. 18:59 The patient presents with abdominal pain abdominal distention in the upper abdomen, in irais the lower abdomen. Onset: The symptoms/episode began/occurred 2 day(s) ago. The patient presents to the emergency department with nausea, vomiting, abdominal pain, of the right upper quadrant, left upper quadrant, right lower quadrant and left lower quadrant. Onset: The symptoms/episode began/occurred 2 day(s) ago. Possible causes: unknown. The symptoms are aggravated by nothing. pressure, food , The symptoms are alleviated by nothing. remaining still. abdominal pain and vomiting, low grade fever. Associated signs and symptoms: Pertinent positives: abdominal pain, fever, nausea, vomiting. Associated signs and symptoms: Pertinent positives: nausea and vomiting, fever, vomiting. Allergies No Known Allergies Allergy (Verified 06/11/20 23:00) Home medications list reviewed: Yes Home Medications: Latanoprost [Xalatan] 1 drops OP DAILY 01/02/12 Lisinopril/Hydrochlorothiazide [Lisinopril-Hctz 10-12.5 mg Tab] 10 - 12.5 tab PO DAILY 01/02/12 Multi-VIT,(RENAL) [Centrum Silver] 1 each PO DAILY 01/02/12 [place]-3 Fatty Acids/Fish Oil [Fish Oil 1,000 mg Softgel] 1 each PO DAILY 08/29/14 Vitamin E [E-Vitamin] 400 iu PO DAILY 08/29/14 Levothyroxine [Synthroid*] 50 mcg PO DAILY 06/12/20 Pravastatin Sodium [Pravachol] 20 mg PO DAILY 06/12/20 - Past Medical/Surgical History Diabetic: No -: Hypertension -: Colon Ca 2012 Chemo/radiation -: Hysterectomy -: Tubal ligation -: Port placement and removal Psychosocial/ Personal History: Patient lives at home with her - Social History Smoking Status: Never smoker Alcohol use: No CD- Drugs: No Caffeine use: No Place of Residence: Home Review of Systems 10-point ROS is otherwise unremarkable General: Weakness, Malaise Physical Examination Temp Pulse Resp BP Pulse Ox 98.9 F 74 20 96/52 L 94 06/12/20 12:00 06/12/20 12:00 06/12/20 12:00 06/12/20 12:00 06/12/20 12:00 General: Oriented x3, Cooperative HEENT: Atraumatic Respiratory: Clear to auscultation bilaterally Cardiovascular: No edema, Regular rate/rhythm Gastrointestinal: Soft and benign, Non-distended, Tenderness Musculoskeletal: No clubbing, No contractures Integumentary: No rashes, No cyanosis Neurological: Normal speech Laboratory Data (last 24 hrs) 06/11/20 18:50: Magnesium 1.6 L 06/11/20 18:50: PT 11.4, INR 0.97, APTT 26.3 06/11/20 18:50: WBC 7.2, Hgb 11.4 L, Hct 34.5 L, Plt Count 215 06/11/20 18:50: Sodium 133 L, Potassium 4.0, BUN 35 H, Creatinine 2.55 H, Glucose 160 H, Total Bilirubin 0.6, AST 25, ALT 15, Alkaline Phosphatase 59, Amylase 54, Lipase 169 Imagings Data: EXAM DESCRIPTION: CT - Abdomen Pelvis Wo Contrast - 06/11/2020 7:58 pm CLINICAL HISTORY: Abdominal pain. ABD PAIN COMPARISON: CT ABD PELVIS W CONTRAST dated 05/02/2013 TECHNIQUE: CT imaging of the abdomen and pelvis was performed without contrast. Solid organ and vascular assessment is limited due to lack of IV contrast. All CT scans are performed using dose optimization technique as appropriate and may include automated exposure control or mA/KV adjustment according to patient size. FINDINGS: The lower lung guaman are clear. The liver, spleen, pancreas, adrenal glands are within normal limits for a limited non-contrast examination.Small bilateral renal calculi are seen without hydronephrosis. Significant distention of small bowel loops identified with mild free fluid in the abdomen pelvis, compatible with moderate mechanical small-bowel obstruction. A discrete point of transition is difficult to ascertain. No pneumoperitoneum. Within the right aspect of the small bowel mesentery a 2 cm soft tissue lesion is noted which is of unclear etiology but may represent an enlarged lymph node or a small mesenteric mass. The appendix is normal. The osseous structures are within normal limits. IMPRESSION: Moderate grade mechanical small bowel obstruction is seen with mild free fluid in the abdomen and pelvis. 2 cm soft tissue lesion is seen in the right aspect of the small bowel mesentery may represent a mesenteric lymph node or small mesenteric mass. Bilateral nephrolithiasis without hydronephrosis. A limited non-contrast examination was performed as detailed. EXAM DESCRIPTION: RAD - Chest Single View - 06/11/2020 7:57 pm CLINICAL HISTORY: code sepsis Chest pain. COMPARISON: Chest Pa And Lat (2 Views) dated 11/01/2019; Chest Pa And Lat (2 Views) dated 10/03/2019; CHEST SINGLE VIEW dated 01/02/2012; CHEST SINGLE VIEW dated 11/10/2011 FINDINGS: Portable technique limits examination quality. The lungs are grossly clear. The heart is normal in size. No displaced fractures . IMPRESSION: No acute intrathoracic process suspected. Conclusions/Impression: A/ ILYA likely due to hypovolemia Hyponatremia Hypocalcemia Hypomagnesemia HTN DM II Anemia in chronic illness SBO P/ Continue current POC and Medications Continue IVF Replete lytes prn. NPO Follow up with surgery. No NSAIDs AM labs. Daily weight Thank you kindly for the consultation.
[2020-06-12] MEDS: HEPARIN 5000 UNIT/ML 1 ML VIAL SQ SCH (21:26)
[2020-06-13] MEDS: PHENOL 1.4% ORAL SPRAY 180ML MM PRN ×5 (01:32→18:51)
[2020-06-13] MEDS: MORPHINE 2 MG/ML SYR IV PRN (01:35)
[2020-06-13 05:32] LABS: Absolute Lymphocytes (CBC) 0.9 K/uL (0.7-4.9); Basophils % 0.4 % (0-1.3); Hematocrit 28.3 % (36.0-45.0); Lymphocytes % 22.8 % (15.3-44.8); MPV 9.4 fL (7.6-11.3); RBC Red Blood Cell Count 2.98 M/uL (3.86-4.86)
[2020-06-13] MEDS: D5 0.45 NS 1,000 ML IV SCH ×2 (05:38→16:14)
[2020-06-13 05:53] LABS: Magnesium 2.1 mg/dL (1.8-2.4); Potassium 4.2 mmol/L (3.5-5.1)
--- NOTE | 2020-06-13 07:42 | EKG ---
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
[2020-06-13] MEDS: HEPARIN 5000 UNIT/ML 1 ML VIAL SQ SCH ×2 (07:57→20:22)
--- NOTE | 2020-06-13 09:27 | RAD REPORT ---
EXAM DESCRIPTION: RAD - Abdomen W Erect - 06/13/2020 9:09 am CLINICAL HISTORY: sbo COMPARISON: Abdomen Pelvis Wo Contrast dated 06/11/2020 TECHNIQUE: Supine and upright views of the abdomen were obtained. FINDINGS: NG tube is in place in the stomach. Stomach is decompressed. Multiple dilated small bowel loops are present. Dilatation pattern is not clearly different from the June 11 CT imaging. No free air or pneumatosis have developed. No suspicious calcifications. IMPRESSION: Small bowel obstruction pattern is still present. No free air has developed. No significant change to the bowel pattern since June 11.
--- NOTE | 2020-06-13 09:49 | PN ---
Date of Progress Note: 06/13/2020 Diagnosis: Small bowel obstruction. Subjective: The patient feels better, ambulating. She is very hungry. She believe she had passed s ome gas. Review of Systems: Ten points otherwise unremarkable. Objective: Abdomen: Soft and depressible. Extremities: Good capillary refill. No calf tenderness. Laboratory Data: Blood work shows WBC count of 4, hemoglobin of 9.4. Abdominal x-ray still pending. Plan: We consulted Oncology yesterday. I discussed the case with the primary doctor. Apparently, s he has some rectal cancer treated with chemoradiation therapy. About this long that she has on the a bdomen, at one point we might have to do a biopsy if she does not resolve her bowel obstruction at th is moment, and we have to do laparotomy that will be probably an opportunity for us to go on after th at. If she does not have to go for surgery, then we might have to look for all options including cor e biopsies of that area since the patient has history of rectal cancer in the past. Right now, feels better. She wants to eat, but I explained to her we just have to take a look at the x-ray and make sure that she is passing some good gas. The fact that she has a bowel movement does not mean that is still obstruction is gone and she was receptive to that. OLY/JASON Voice ID: [id number] Report ID: [id number]
--- NOTE | 2020-06-13 12:48 | P.PN ---
Subjective Date of Service: 06/13/20 Primary Care Provider: Dr Cordero Chief Complaint: Small-bowel obstruction Itching with significant amount of NGT output. No BM or flatus. No vomiting. She has been afebrile. Physical Examination - Vital Signs Temperature: 98.6 F Blood Pressure: 118/56 Pulse: 70 Respirations: 17 Pulse Ox (%): 96 - Physical Exam General: Alert, In no apparent distress HEENT: Mucous membr. moist/pink, Other (NG-tube to suction) Neck: Supple, JVD not distended Respiratory: Clear to auscultation bilaterally, Normal air movement Cardiovascular: No edema, Regular rate/rhythm, Normal S1 S2 Gastrointestinal: Normal bowel sounds, Non-distended, Tenderness (Diffuse) Musculoskeletal: No clubbing, No erythema Integumentary: No rashes Neurological: Normal strength at 5/5 x4 extr - Studies Medications List Reviewed: Yes Assessment And Plan - Current Problems (Diagnosis) (1) Small bowel obstruction Current Visit: Yes Status: Acute (2) Mesenteric adenitis Current Visit: Yes Status: Acute (3) Mesenteric mass Current Visit: Yes Status: Acute (4) History of rectal cancer Current Visit: Yes Status: Acute (5) Acute renal failure Current Visit: Yes Status: Acute (6) Anemia Current Visit: Yes Status: Acute - Plan Patient had a bowel movement today per report. General surgery is following. NG-tube to suction in place. Patient may need biopsy, either by laparoscopic or by surgery depending on whether the SBO resolved spontaneously or not. Continue IV hydration. Serum creatinine is improving. Nephrology input appreciated. Optimize electrolyte. Pain management as needed. Monitor CBC and transfuse p.r.n. for hemoglobin less than 7. Physician Review Additional Text: Assessment Nausea, vomiting and abdominal pain secondary to moderate mechanical small bowel obstruction with 2 cm soft tissue lesion in the right aspect of the small-bowel likely mesenteric lymph node verses mass with history of colon cancer Acute chronic kidney disease stage 2 Hypertension Anemia likely of chronic disease Plan Nausea, vomiting and abdominal pain secondary to moderate mechanical small bowel obstruction with 2 cm soft tissue lesion in the right aspect of the small-bowel likely mesenteric lymph node verses mass with history of colon cancer: Continue with IV fluids. Will give fluid bolus today. Patient remains on low intermittent suction with NG tube in place. Will start DVT prophylaxis-heparin. Patient remains NPO. Surgery and nephrology has been consulted. Will also discuss with family and investigate history of colon cancer further. Patient not able to give accurate history. If no significant improvement patient may require surgical intervention. I will turn the service over to the hospitalist team tomorrow. I will go plan of care with him. Acute chronic kidney disease stage 2: Continue IV fluid hydration. Will provide bolus this morning. Continue to hold lisinopril. Nephrology consulted. Await further recommendation. Hypertension: Discontinue lisinopril. Will monitor this closely. Anemia likely of chronic disease: Will monitor this closely. Will check iron and B12 studies. Maintain hemoglobin above 8.0.
--- NOTE | 2020-06-13 21:31 | P.PN ---
Date of Service: 06/13/20 Vital Signs Temp Pulse Resp BP Pulse Ox 98.7 F 70 18 111/53 L 96 06/13/20 16:00 06/13/20 16:00 06/13/20 16:00 06/13/20 16:00 06/13/20 16:00 Medications Acetaminophen (Tylenol Suppository) 650 mg [place] Q6H PRN PRN Reason: TEMP > 101' F Stop: 07/11/20 22:53 Heparin Sodium (Porcine) (Heparin 5,000 Units/Ml) 5,000 unit SQ Q12HR [facility] Stop: 07/12/20 21:01 Last Admin: 06/13/20 20:22 Dose: 5,000 unit Documented by: Dextrose/Sodium Chloride (Dextrose 5% O.45% Saline) 1,000 mls @ 100 mls/hr IV .Q10H [facility] Stop: 07/11/20 22:53 Last Admin: 06/13/20 16:14 Dose: 1,000 mls Documented by: Morphine Sulfate (Morphine Sulfate) 2 mg IV Q4H PRN PRN Reason: Pain scale 5-7 (Moderate) Stop: 07/11/20 22:53 Last Admin: 06/13/20 01:35 Dose: 2 mg Documented by: Ondansetron HCl (Zofran) 4 mg IV Q6HP PRN PRN Reason: NAUSEA / VOMITING Stop: 07/11/20 22:53 Phenol (Phenaseptic [place]) 2 appl MM Q4H PRN PRN Reason: SORE THROAT Stop: 07/12/20 23:05 Last Admin: 06/13/20 18:51 Dose: 2 appl Documented by: Sodium Chloride (Normal Saline Flush) 10 ml IV BID [facility] Stop: 07/11/20 22:53 Last Admin: 06/13/20 20:22 Dose: 10 ml Documented by: Microbiology Results 06/11/20 18:50 Blood - Blood Aerobic Blood Culture - Preliminary No growth in 24 hours. 06/11/20 18:50 Blood - Blood Anaerobic Blood Culture - Preliminary No growth in 24 hours. 06/11/20 18:50 Blood - Blood Aerobic Blood Culture - Preliminary No growth in 24 hours. 06/11/20 18:50 Blood - Blood Anaerobic Blood Culture - Preliminary No growth in 24 hours. Assessment/ Plan: Nephrology CPS stable without CP or SOB. Persistent abdominal tenderness. No acute events overnight. Vitals, medications, blood work and imaging reviewed in the chart. General: Oriented x3, Cooperative HEENT: Atraumatic Respiratory: Clear to auscultation bilaterally Cardiovascular: No edema, Regular rate/rhythm Gastrointestinal: Soft and benign, Non-distended, Tenderness Musculoskeletal: No clubbing, No contractures Integumentary: No rashes, No cyanosis Neurological: Normal speech Laboratory Data (last 24 hrs) 06/11/20 18:50: Magnesium 1.6 L 06/11/20 18:50: PT 11.4, INR 0.97, APTT 26.3 06/11/20 18:50: WBC 7.2, Hgb 11.4 L, Hct 34.5 L, Plt Count 215 06/11/20 18:50: Sodium 133 L, Potassium 4.0, BUN 35 H, Creatinine 2.55 H, Glucose 160 H, Total Bilirubin 0.6, AST 25, ALT 15, Alkaline Phosphatase 59, Amylase 54, Lipase 169 Imagings Data: EXAM DESCRIPTION: CT - Abdomen Pelvis Wo Contrast - 06/11/2020 7:58 pm CLINICAL HISTORY: Abdominal pain. ABD PAIN COMPARISON: CT ABD PELVIS W CONTRAST dated 05/02/2013 TECHNIQUE: CT imaging of the abdomen and pelvis was performed without contrast. Solid organ and vascular assessment is limited due to lack of IV contrast. All CT scans are performed using dose optimization technique as appropriate and may include automated exposure control or mA/KV adjustment according to patient size. FINDINGS: The lower lung guaman are clear. The liver, spleen, pancreas, adrenal glands are within normal limits for a limited non-contrast examination.Small bilateral renal calculi are seen without hydronephrosis. Significant distention of small bowel loops identified with mild free fluid in the abdomen pelvis, compatible with moderate mechanical small-bowel obstruction. A discrete point of transition is difficult to ascertain. No pneumoperitoneum. Within the right aspect of the small bowel mesentery a 2 cm soft tissue lesion is noted which is of unclear etiology but may represent an enlarged lymph node or a small mesenteric mass. The appendix is normal. The osseous structures are within normal limits. IMPRESSION: Moderate grade mechanical small bowel obstruction is seen with mild free fluid in the abdomen and pelvis. 2 cm soft tissue lesion is seen in the right aspect of the small bowel mesentery may represent a mesenteric lymph node or small mesenteric mass. Bilateral nephrolithiasis without hydronephrosis. A limited non-contrast examination was performed as detailed. EXAM DESCRIPTION: RAD - Chest Single View - 06/11/2020 7:57 pm CLINICAL HISTORY: code sepsis Chest pain. COMPARISON: Chest Pa And Lat (2 Views) dated 11/01/2019; Chest Pa And Lat (2 Views) dated 10/03/2019; CHEST SINGLE VIEW dated 01/02/2012; CHEST SINGLE VIEW dated 11/10/2011 FINDINGS: Portable technique limits examination quality. The lungs are grossly clear. The heart is normal in size. No displaced fractures. IMPRESSION: No acute intrathoracic process suspected. Conclusions/Impression: A/ ILYA likely due to hypovolemia Hyponatremia Hypocalcemia Hypomagnesemia HTN DM II Anemia in chronic illness SBO P/ Continue current POC and Medications Continue IVF Replete lytes prn. NPO Follow up with surgery. No NSAIDs AM labs. Daily weight
[2020-06-14] MEDS: PHENOL 1.4% ORAL SPRAY 180ML MM PRN ×4 (00:51→18:24)
[2020-06-14] MEDS: D5 0.45 NS 1,000 ML IV SCH ×4 (03:04→20:52)
[2020-06-14 05:03] LABS: Basophils % 0.3 % (0-1.3); Hematocrit 29.5 % (36.0-45.0); Lymphocytes % 19.6 % (15.3-44.8); MPV 10.4 fL (7.6-11.3); RBC Red Blood Cell Count 3.13 M/uL (3.86-4.86)
[2020-06-14 05:07] LABS: Magnesium 1.8 mg/dL (1.8-2.4)
[2020-06-14] MEDS ORDERED: MAGNESIUM SULFATE 1 gm IVPB 1 GM/100 ML BAG IV ONE (08:00)
[2020-06-14] MEDS: HEPARIN 5000 UNIT/ML 1 ML VIAL SQ SCH ×2 (08:37→20:03)
--- NOTE | 2020-06-14 13:51 | P.PN ---
Subjective Date of Service: 06/14/20 Primary Care Provider: Dr Cordero Chief Complaint: Small-bowel obstruction No changes from yesterday. Patient still has significant NG-tube output. No BM or flatus. No vomiting. She has been afebrile. Physical Examination - Vital Signs Temperature: 98.3 F Blood Pressure: 102/59 Pulse: 61 Respirations: 18 Pulse Ox (%): 97 - Physical Exam General: Alert, In no apparent distress HEENT: Other (NGT to suction.) Neck: Supple Respiratory: Clear to auscultation bilaterally, Normal air movement Cardiovascular: No edema, Regular rate/rhythm, Normal S1 S2 Gastrointestinal: Hypoactive, Distended (Mild), Tenderness (Mild) Musculoskeletal: No swelling, No erythema Integumentary: No rashes Neurological: Normal speech, Normal strength at 5/5 x4 extr - Studies Medications List Reviewed: Yes Assessment And Plan - Current Problems (Diagnosis) (1) Small bowel obstruction Current Visit: Yes Status: Acute (2) Mesenteric adenitis Current Visit: Yes Status: Acute (3) Mesenteric mass Current Visit: Yes Status: Acute (4) History of rectal cancer Current Visit: Yes Status: Acute (5) Acute renal failure Current Visit: Yes Status: Acute (6) Anemia Current Visit: Yes Status: Acute - Plan No bowel movement or flatus. General surgery is following. NG-tube to suction with significant output Small-bowel series ordered for tomorrow Continue IV hydration. Acute renal failure resolved. Nephrology is following. Optimize electrolyte. Pain management as needed. Monitor CBC and transfuse p.r.n. for hemoglobin less than 7.
--- NOTE | 2020-06-14 22:18 | P.PN ---
Date of Service: 06/14/20 Vital Signs Temp Pulse Resp BP Pulse Ox 98.8 F 78 18 133/60 96 06/14/20 20:00 06/14/20 20:00 06/14/20 20:00 06/14/20 20:00 06/14/20 20:00 Medications Acetaminophen (Tylenol Suppository) 650 mg [place] Q6H PRN PRN Reason: TEMP > 101' F Stop: 07/11/20 22:53 Heparin Sodium (Porcine) (Heparin 5,000 Units/Ml) 5,000 unit SQ Q12HR [facility] Stop: 07/12/20 21:01 Last Admin: 06/14/20 20:03 Dose: 5,000 unit Documented by: Dextrose/Sodium Chloride (Dextrose 5% O.45% Saline) 1,000 mls @ 100 mls/hr IV .Q10H [facility] Stop: 07/11/20 22:53 Last Admin: 06/14/20 12:46 Dose: 1,000 mls Documented by: Morphine Sulfate (Morphine Sulfate) 2 mg IV Q4H PRN PRN Reason: Pain scale 5-7 (Moderate) Stop: 07/11/20 22:53 Last Admin: 06/13/20 01:35 Dose: 2 mg Documented by: Ondansetron HCl (Zofran) 4 mg IV Q6HP PRN PRN Reason: NAUSEA / VOMITING Stop: 07/11/20 22:53 Phenol (Phenaseptic [place]) 2 appl MM Q4H PRN PRN Reason: SORE THROAT Stop: 07/12/20 23:05 Last Admin: 06/14/20 18:24 Dose: 2 appl Documented by: Sodium Chloride (Normal Saline Flush) 10 ml IV BID [facility] Stop: 07/11/20 22:53 Last Admin: 06/14/20 20:03 Dose: Not Given Documented by: Microbiology Results 06/11/20 18:50 Blood - Blood Aerobic Blood Culture - Preliminary No growth in 24 hours. 06/11/20 18:50 Blood - Blood Anaerobic Blood Culture - Preliminary No growth in 24 hours. 06/11/20 18:50 Blood - Blood Aerobic Blood Culture - Preliminary No growth in 24 hours. 06/11/20 18:50 Blood - Blood Anaerobic Blood Culture - Preliminary No growth in 24 hours. Assessment/ Plan: Nephrology CPS stable without CP or SOB. Persistent abdominal tenderness. No acute events overnight. Vitals, medications, blood work and imaging reviewed in the chart. General: Oriented x3, Cooperative HEENT: Atraumatic Respiratory: Clear to auscultation bilaterally Cardiovascular: No edema, Regular rate/rhythm Gastrointestinal: Soft and benign, Non-distended, Tenderness Musculoskeletal: No clubbing, No contractures Integumentary: No rashes, No cyanosis Neurological: Normal speech Laboratory Data (last 24 hrs) 06/11/20 18:50: Magnesium 1.6 L 06/11/20 18:50: PT 11.4, INR 0.97, APTT 26.3 06/11/20 18:50: WBC 7.2, Hgb 11.4 L, Hct 34.5 L, Plt Count 215 06/11/20 18:50: Sodium 133 L, Potassium 4.0, BUN 35 H, Creatinine 2.55 H, Glucose 160 H, Total Bilirubin 0.6, AST 25, ALT 15, Alkaline Phosphatase 59, Amylase 54, Lipase 169 Imagings Data: EXAM DESCRIPTION: CT - Abdomen Pelvis Wo Contrast - 06/11/2020 7:58 pm CLINICAL HISTORY: Abdominal pain. ABD PAIN COMPARISON: CT ABD PELVIS W CONTRAST dated 05/02/2013 TECHNIQUE: CT imaging of the abdomen and pelvis was performed without contrast. Solid organ and vascular assessment is limited due to lack of IV contrast. All CT scans are performed using dose optimization technique as appropriate and may include automated exposure control or mA/KV adjustment according to patient size. FINDINGS: The lower lung guaman are clear. The liver, spleen, pancreas, adrenal glands are within normal limits for a limited non-contrast examination.Small bilateral renal calculi are seen without hydronephrosis. Significant distention of small bowel loops identified with mild free fluid in the abdomen pelvis, compatible with moderate mechanical small-bowel obstruction. A discrete point of transition is difficult to ascertain. No pneumoperitoneum. Within the right aspect of the small bowel mesentery a 2 cm soft tissue lesion is noted which is of unclear etiology but may represent an enlarged lymph node or a small mesenteric mass. The appendix is normal. The osseous structures are within normal limits. IMPRESSION: Moderate grade mechanical small bowel obstruction is seen with mild free fluid in the abdomen and pelvis. 2 cm soft tissue lesion is seen in the right aspect of the small bowel mesentery may represent a mesenteric lymph node or small mesenteric mass. Bilateral nephrolithiasis without hydronephrosis. A limited non-contrast examination was performed as detailed. EXAM DESCRIPTION: RAD - Chest Single View - 06/11/2020 7:57 pm CLINICAL HISTORY: code sepsis Chest pain. COMPARISON: Chest Pa And Lat (2 Views) dated 11/01/2019; Chest Pa And Lat (2 Views) dated 10/03/2019; CHEST SINGLE VIEW dated 01/02/2012; CHEST SINGLE VIEW dated 11/10/2011 FINDINGS: Portable technique limits examination quality. The lungs are grossly clear. The heart is normal in size. No displaced fractures. IMPRESSION: No acute intrathoracic process suspected. Conclusions/Impression: A/ ILYA likely due to hypovolemia Hyponatremia Hypocalcemia Hypomagnesemia HTN DM II Anemia in chronic illness SBO P/ Continue current POC and Medications Continue IVF Replete lytes prn. NPO Follow up with surgery. Plan for small follow through tomorrow. No NSAIDs AM labs. Daily weight
[2020-06-15] MEDS: D5 0.45 NS 1,000 ML IV SCH ×4 (00:15→21:04)
[2020-06-15 06:19] LABS: Absolute Lymphocytes (CBC) 0.8 K/uL (0.7-4.9); Basophils % 0.5 % (0-1.3); Hematocrit 30.5 % (36.0-45.0); Lymphocytes % 27.4 % (15.3-44.8); MPV 9.7 fL (7.6-11.3); RBC Red Blood Cell Count 3.23 M/uL (3.86-4.86)
[2020-06-15 06:33] LABS: Magnesium 1.9 mg/dL (1.8-2.4); Potassium 3.1 mmol/L (3.5-5.1)
[2020-06-15 07:08] LABS: Blood Morphology Comment NOT SEEN (NOT SEEN); Platelet Estimate ADEQ
[2020-06-15] MEDS: KCL 20 MEQ/100 mL IVPB 20 MEQ/100 ML BAG IV SCH ×2 (11:04→13:06)
[2020-06-15] MEDS: HEPARIN 5000 UNIT/ML 1 ML VIAL SQ SCH ×2 (11:07→21:05)
[2020-06-15] MEDS: PHENOL 1.4% ORAL SPRAY 180ML MM PRN ×2 (11:17→15:58)
--- NOTE | 2020-06-15 12:51 | P.PN ---
Subjective Date of Service: 06/15/20 Primary Care Provider: Dr Cordero Chief Complaint: Small-bowel obstruction No changes from yesterday. NG tube output is about 650ml overnight No BM or flatus. No vomiting. Physical Examination - Vital Signs Temperature: 98.5 F Blood Pressure: 132/63 Pulse: 83 Respirations: 16 Pulse Ox (%): 83 - Physical Exam General: Alert, In no apparent distress HEENT: Other (NGT) Respiratory: Clear to auscultation bilaterally, Normal air movement Cardiovascular: No edema, Regular rate/rhythm, Normal S1 S2 Gastrointestinal: Hypoactive, Soft and benign, Distended (Mild) Musculoskeletal: No swelling, No erythema Integumentary: No rashes Neurological: Other (Nonfocal) - Studies Medications List Reviewed: Yes Assessment And Plan - Current Problems (Diagnosis) (1) Small bowel obstruction Current Visit: Yes Status: Acute (2) Mesenteric adenitis Current Visit: Yes Status: Acute (3) Mesenteric mass Current Visit: Yes Status: Acute (4) History of rectal cancer Current Visit: Yes Status: Acute (5) Acute renal failure Current Visit: Yes Status: Acute (6) Anemia Current Visit: Yes Status: Acute - Plan No bowel movement or flatus. General surgery is following. Follow Small-bowel series result. Continue IV hydration. Acute renal failure resolved. Nephrology is following. Optimize electrolyte. Replete potassium IV. Pain management as needed. Hemoglobin has been stable. Monitor CBC and transfuse p.r.n. for hemoglobin less than 7. Physician Review Additional Text: Assessment Nausea, vomiting and abdominal pain secondary to moderate mechanical small bowel obstruction with 2 cm soft tissue lesion in the right aspect of the small-bowel likely mesenteric lymph node verses mass with history of colon cancer Acute chronic kidney disease stage 2 Hypertension Anemia likely of chronic disease Plan Nausea, vomiting and abdominal pain secondary to moderate mechanical small bowel obstruction with 2 cm soft tissue lesion in the right aspect of the small-bowel likely mesenteric lymph node verses mass with history of colon cancer: Continue with IV fluids. Will give fluid bolus today. Patient remains on low intermittent suction with NG tube in place. Will start DVT prophylaxis-heparin. Patient remains NPO. Surgery and nephrology has been consulted. Will also discuss with family and investigate history of colon cancer further. Patient not able to give accurate history. If no significant improvement patient may require surgical intervention. I will turn the service over to the hospitalist team tomorrow. I will go plan of care with him. Acute chronic kidney disease stage 2: Continue IV fluid hydration. Will provide bolus this morning. Continue to hold lisinopril. Nephrology consulted. Await further recommendation. Hypertension: Discontinue lisinopril. Will monitor this closely. Anemia likely of chronic disease: Will monitor this closely. Will check iron and B12 studies. Maintain hemoglobin above 8.0.
--- NOTE | 2020-06-15 19:19 | PN ---
Date of Progress Note: 06/14/2020 Reason For Service: Small bowel obstruction. Subjective: The patient is doing better, having bowel movement, still unable to pass full amount of gas. Objective: Chest: Clear. Abdomen: Soft and depressible. Imaging Reviewed: Again with the patient, previous x-rays. Plan: She asked me to talk to her , so I had conversation with her on the phone and e xplained to him as per patient's request the plan which consists of ambulation and we are going to do small bowel series tomorrow. They understood and she feels a little bit better and if the small bow el series comes back with complete bowel obstruction, she may have to reconsider surgical interventio n again. OLY/JASON Voice ID: [id number] Report ID: [id number]
--- NOTE | 2020-06-15 19:31 | PN ---
Date of Progress Note: 06/15/2020 Subjective: The patient is improving. She has a bowel movement. Today she is going through a small bowel series, I discussed that with the nursing staff also. She looks improved with 1 bowel movemen t. She is happy about it with just minimal amount of discomfort. Small bowel series is still pendin g. Plan: Follow up small bowel series out of bed. Once we have a final result discussed with the patie nt and again and then we will proceed accordingly. OLY/JASON Voice ID: [id number] Report ID: [id number]
--- NOTE | 2020-06-15 19:54 | RAD REPORT ---
EXAM DESCRIPTION: RAD - Small Bowel Series - 06/15/2020 5:21 pm CLINICAL HISTORY: Abdominal pain/ COMPARISON: June 11, 2020 cat scan FINDINGS: Contrast enters the colon by approximately 12 hours. Moderate dilatation of jejunum and portions of ileum. IMPRESSION: Patient has a very high-grade small-bowel obstruction . The exam was discussed with Dr. Mayers
--- NOTE | 2020-06-15 22:08 | P.PN ---
Date of Service: 06/15/20 Vital Signs Temp Pulse Resp BP Pulse Ox 98.7 F 81 16 135/63 96 06/15/20 16:00 06/15/20 16:00 06/15/20 16:00 06/15/20 16:00 06/15/20 16:00 Medications Acetaminophen (Tylenol Suppository) 650 mg [place] Q6H PRN PRN Reason: TEMP > 101' F Stop: 07/11/20 22:53 Heparin Sodium (Porcine) (Heparin 5,000 Units/Ml) 5,000 unit SQ Q12HR [facility] Stop: 07/12/20 21:01 Last Admin: 06/15/20 21:05 Dose: 5,000 unit Documented by: Dextrose/Sodium Chloride (Dextrose 5% O.45% Saline) 1,000 mls @ 100 mls/hr IV .Q10H [facility] Stop: 07/11/20 22:53 Last Admin: 06/15/20 21:04 Dose: 1,000 mls Documented by: Morphine Sulfate (Morphine Sulfate) 2 mg IV Q4H PRN PRN Reason: Pain scale 5-7 (Moderate) Stop: 07/11/20 22:53 Last Admin: 06/13/20 01:35 Dose: 2 mg Documented by: Ondansetron HCl (Zofran) 4 mg IV Q6HP PRN PRN Reason: NAUSEA / VOMITING Stop: 07/11/20 22:53 Phenol (Phenaseptic [place]) 2 appl [place] Q4H PRN PRN Reason: SORE THROAT Stop: 07/12/20 23:05 Last Admin: 06/15/20 15:58 Dose: 2 appl Documented by: Sodium Chloride (Normal Saline Flush) 10 ml IV BID [facility] Stop: 07/11/20 22:53 Last Admin: 06/15/20 21:00 Dose: Not Given Documented by: Microbiology Results 06/11/20 18:50 Blood - Blood Aerobic Blood Culture - Preliminary No growth in 24 hours. 06/11/20 18:50 Blood - Blood Anaerobic Blood Culture - Preliminary No growth in 24 hours. 06/11/20 18:50 Blood - Blood Aerobic Blood Culture - Preliminary No growth in 24 hours. 06/11/20 18:50 Blood - Blood Anaerobic Blood Culture - Preliminary No growth in 24 hours. Assessment/ Plan: Nephrology CPS stable without CP or SOB. Persistent abdominal tenderness. No acute events overnight. Vitals, medications, blood work and imaging reviewed in the chart. General: Oriented x3, Cooperative HEENT: Atraumatic Respiratory: Clear to auscultation bilaterally Cardiovascular: No edema, Regular rate/rhythm Gastrointestinal: Soft and benign, Non-distended, Tenderness Musculoskeletal: No clubbing, No contractures Integumentary: No rashes, No cyanosis Neurological: Normal speech Laboratory Data (last 24 hrs) 06/11/20 18:50: Magnesium 1.6 L 06/11/20 18:50: PT 11.4, INR 0.97, APTT 26.3 06/11/20 18:50: WBC 7.2, Hgb 11.4 L, Hct 34.5 L, Plt Count 215 06/11/20 18:50: Sodium 133 L, Potassium 4.0, BUN 35 H, Creatinine 2.55 H, Glucose 160 H, Total Bilirubin 0.6, AST 25, ALT 15, Alkaline Phosphatase 59, Amylase 54, Lipase 169 Imagings Data: EXAM DESCRIPTION: CT - Abdomen Pelvis Wo Contrast - 06/11/2020 7:58 pm CLINICAL HISTORY: Abdominal pain. ABD PAIN COMPARISON: CT ABD PELVIS W CONTRAST dated 05/02/2013 TECHNIQUE: CT imaging of the abdomen and pelvis was performed without contrast. Solid organ and vascular assessment is limited due to lack of IV contrast. All CT scans are performed using dose optimization technique as appropriate and may include automated exposure control or mA/KV adjustment according to patient size. FINDINGS: The lower lung guaman are clear. The liver, spleen, pancreas, adrenal glands are within normal limits for a limited non-contrast examination.Small bilateral renal calculi are seen without hydronephrosis. Significant distention of small bowel loops identified with mild free fluid in the abdomen pelvis, compatible with moderate mechanical small-bowel obstruction. A discrete point of transition is difficult to ascertain. No pneumoperitoneum. Within the right aspect of the small bowel mesentery a 2 cm soft tissue lesion is noted which is of unclear etiology but may represent an enlarged lymph node or a small mesenteric mass. The appendix is normal. The osseous structures are within normal limits. IMPRESSION: Moderate grade mechanical small bowel obstruction is seen with mild free fluid in the abdomen and pelvis. 2 cm soft tissue lesion is seen in the right aspect of the small bowel mesentery may represent a mesenteric lymph node or small mesenteric mass. Bilateral nephrolithiasis without hydronephrosis. A limited non-contrast examination was performed as detailed. EXAM DESCRIPTION: RAD - Chest Single View - 06/11/2020 7:57 pm CLINICAL HISTORY: code sepsis Chest pain. COMPARISON: Chest Pa And Lat (2 Views) dated 11/01/2019; Chest Pa And Lat (2 Views) dated 10/03/2019; CHEST SINGLE VIEW dated 01/02/2012; CHEST SINGLE VIEW dated 11/10/2011 FINDINGS: Portable technique limits examination quality. The lungs are grossly clear. The heart is normal in size. No displaced fractures. IMPRESSION: No acute intrathoracic process suspected. EXAM DESCRIPTION: RAD - Small Bowel Series - 06/15/2020 5:21 pm CLINICAL HISTORY: Abdominal pain/ COMPARISON: June 11, 2020 cat scan FINDINGS: Contrast enters the colon by approximately 12 hours. Moderate dilatation of jejunum and portions of ileum. IMPRESSION: Patient has a very high-grade small-bowel obstruction . Conclusions/Impression: A/ ILYA likely due to hypovolemia Hyponatremia Hypokalemia Hypocalcemia Hypomagnesemia HTN DM II Anemia in chronic illness SBO P/ Continue current POC and Medications Continue IVF Replete potassium. NPO Follow up with surgery. No NSAIDs AM labs. Daily weight
[2020-06-16] MEDS: PHENOL 1.4% ORAL SPRAY 180ML MM PRN ×3 (01:00→14:42)
[2020-06-16] MEDS: D5 0.45 NS 1,000 ML IV SCH ×4 (02:52→22:52)
[2020-06-16 06:21] LABS: Absolute Lymphocytes (CBC) 1.4 K/uL (0.7-4.9); Basophils % 0.4 % (0-1.3); Lymphocytes % 30.7 % (15.3-44.8); MPV 10.4 fL (7.6-11.3); RBC Red Blood Cell Count 3.06 M/uL (3.86-4.86)
[2020-06-16 06:32] LABS: Potassium 3.8 mmol/L (3.5-5.1)
[2020-06-16] MEDS ORDERED: KCL 20 MEQ/100 mL IVPB 20 MEQ/100 ML BAG IV SCH (08:00)
[2020-06-16] MEDS: HEPARIN 5000 UNIT/ML 1 ML VIAL SQ SCH (08:16)
--- NOTE | 2020-06-16 10:52 | P.PN ---
Subjective Date of Service: 06/16/20 Primary Care Provider: Dr Cordero Chief Complaint: Small-bowel obstruction Patient reports multiple bowel movements since yesterday after the small bowel series. She also reports passing flatus this morning. No vomiting. Small-bowel series report high-grade small-bowel obstruction. Physical Examination - Vital Signs Temperature: 98.3 F Blood Pressure: 116/57 Pulse: 72 Respirations: 18 Pulse Ox (%): 98 - Physical Exam General: Alert, In no apparent distress Respiratory: Clear to auscultation bilaterally, Normal air movement Cardiovascular: No edema, Regular rate/rhythm, Normal S1 S2 Gastrointestinal: Normal bowel sounds, Soft and benign, No tenderness Musculoskeletal: No swelling, No erythema Neurological: Other (Nonfocal) - Studies Medications List Reviewed: Yes Assessment And Plan - Current Problems (Diagnosis) (1) Small bowel obstruction Current Visit: Yes Status: Acute (2) Mesenteric adenitis Current Visit: Yes Status: Acute (3) Mesenteric mass Current Visit: Yes Status: Acute (4) History of rectal cancer Current Visit: Yes Status: Acute (5) Acute renal failure Current Visit: Yes Status: Acute (6) Anemia Current Visit: Yes Status: Acute - Plan Patient having multiple bowel movements. General surgery is following. Continue IV hydration. Acute renal failure resolved. Nephrology is following. Optimize electrolyte. Pain management as needed. Hemoglobin has been stable. Monitor CBC and transfuse p.r.n. for hemoglobin less than 7. Biopsy of mesenteric mass per Surgery recommendation.
--- NOTE | 2020-06-16 19:01 | PN ---
Date of Progress Note: 06/14/2020 Diagnosis: Small bowel obstruction. Subjective: The patient is awake and alert. I had a long discussion today with her and also I cabrales d her at home as per the patient's request. She had a high-grade obstruction. She has been trying to fight this for the last few days. We believe with the high-grade obstruction, she will not be able to take diet properly and she wants to go for exploration and bowel resection. Obviously, s he is discussing that with her and the pros and cons of it, which were explained to him as la parotomy, possible resection, possible ostomy with benefits, alternatives, and risks including, but n ot limited to infection, bleeding, damage to adjacent structures, anesthesia complication, recurrence , AL, and even . She also understands this may not relieve the symptoms. She might need more t mike one surgical intervention. She also will have to remember that she has an intraabdominal mass, w e may or may not be able to address that issue at this moment, depends on the surgical intervention. She has history of rectal cancer. I do not have the details. She does not have the details, but ap parently, she underwent chemo and radiation therapy. There may be a case that we may not be able to reconnect her again and do a diverting ileostomy or colostomy, depends on what we need to do. She is thinking about that today and tomorrow with her , trying to see the pros and cons of it. I o ffered her that if she decides overnight, then by tomorrow we will try to open the OR for her and try ing to address this issue properly. I notified the Anesthesia Department already and the possible ca se to be done depends on the patient's final decision. OLY/JASON Voice ID: [id number] Report ID: [id number]
[2020-06-17] MEDS: D5 0.45 NS 1,000 ML IV SCH ×4 (03:59→22:39)
[2020-06-17 05:45] LABS: Absolute Lymphocytes (CBC) 1.1 K/uL (0.7-4.9); Basophils % 0.6 % (0-1.3); Hematocrit 28.7 % (36.0-45.0); Lymphocytes % 22.1 % (15.3-44.8); RBC Red Blood Cell Count 3.04 M/uL (3.86-4.86)
[2020-06-17 06:09] LABS: Potassium 3.9 mmol/L (3.5-5.1)
[2020-06-17] MEDS ORDERED: KCL 20 MEQ/100 mL IVPB 20 MEQ/100 ML BAG IV SCH (07:30)
[2020-06-17] MEDS ORDERED: Ringers Lactate 1,000 ML IV ONE ×2 (09:43→10:40)
[2020-06-17] MEDS ORDERED: CIPROFLOXACIN 400mg IV 400 MG/200 ML BAG IV ONE (09:44)
[2020-06-17] MEDS ORDERED: FENTANYL CITR 100 MCG/2 ML ONE ×2 (10:31→11:33)
[2020-06-17] MEDS ORDERED: GLYCOPYRROLATE 0.2 MG/ML SYR ONE ×2 (10:31→10:32)
[2020-06-17] MEDS ORDERED: MIDAZOLAM HCL 2 MG/2 ML INJ ONE (10:31)
[2020-06-17] MEDS ORDERED: propofoL 200 MG/20 ML VIAL IV ONE (10:31)
[2020-06-17] MEDS ORDERED: ONDANSETRON 4 MG/2 ML VIAL ONE (10:32)
[2020-06-17] MEDS ORDERED: dexAMETHasone 4 MG/ML VIAL ONE (10:34)
[2020-06-17] MEDS ORDERED: NEOSTIGMINE 1 MG/ML -5 ML ONE (10:35)
[2020-06-17] MEDS ORDERED: ROCURONIUM 50 MG/5 ML VIAL IV ONE (10:35)
[2020-06-17] MEDS ORDERED: LIDOCAINE 1% MPF 5 ML VIAL ONE (10:37)
--- NOTE | 2020-06-17 11:15 | P.PN ---
Subjective Date of Service: 06/17/20 Primary Care Provider: Dr Cordero Chief Complaint: Small-bowel obstruction NGT in place. Patient denies any complain. She is scheduled for surgery today. Physical Examination - Vital Signs Temperature: 98.6 F Blood Pressure: 130/60 Pulse: 75 Respirations: 18 Pulse Ox (%): 97 - Physical Exam General: Alert, In no apparent distress HEENT: Mucous membr. moist/pink Neck: Supple Respiratory: Clear to auscultation bilaterally, Normal air movement Cardiovascular: No edema, Regular rate/rhythm, Normal S1 S2 Gastrointestinal: Normal bowel sounds, Soft and benign, No tenderness Musculoskeletal: No swelling, No erythema Integumentary: No rashes Neurological: Normal speech, Normal strength at 5/5 x4 extr - Studies Microbiology Data (last 24 hrs): 06/11/20 18:50 Blood - Blood Aerobic Blood Culture - Final No growth in 5 days. 06/11/20 18:50 Blood - Blood Anaerobic Blood Culture - Final No growth in 5 days. 06/11/20 18:50 Blood - Blood Aerobic Blood Culture - Final No growth in 5 days. 06/11/20 18:50 Blood - Blood Anaerobic Blood Culture - Final No growth in 5 days. Medications List Reviewed: Yes Assessment And Plan - Current Problems (Diagnosis) (1) Small bowel obstruction Current Visit: Yes Status: Acute (2) Mesenteric adenitis Current Visit: Yes Status: Acute (3) Mesenteric mass Current Visit: Yes Status: Acute (4) History of rectal cancer Current Visit: Yes Status: Acute (5) Acute renal failure Current Visit: Yes Status: Acute (6) Anemia Current Visit: Yes Status: Acute - Plan General surgery is following. Patient is planned for surgery today. Continue IV hydration. Recommend TPN if patient still needs to be NPO after surgery Acute renal failure resolved. Nephrology is following. Optimize electrolyte. Pain management as needed. Hemoglobin has been stable. Monitor CBC and transfuse p.r.n. for hemoglobin less than 7. Biopsy of mesenteric mass per Surgery recommendation.
[2020-06-17] MEDS ORDERED: KETOROLAC 30 MG/ML INJ ONE (11:33)
[2020-06-17] MEDS ORDERED: MORPHINE 10 MG/ML VIAL ONE (11:33)
--- NOTE | 2020-06-17 12:35 | P.BOP ---
Preoperative diagnosis: SBO, mesenteric mass Postoperative diagnosis: same plus intrabdominal adhesions Primary procedure: 1. Exploratory laparotomy, 2. small bowel resection with anastomosis. Secondary procedure: 3. Mesenteric mass excision, 4. Lysis of adhesions [employer] Delivery Specialist: Adriana Tsai) Estimated blood loss: <50cc Specimen: mass with small bowel Findings: see dicta Anesthesia: General Complications: None Drain(s): Nasogastric Transferred to: ICU Condition: Fair
[2020-06-17] MEDS: HYDROMORPHONE HCL 1 MG/ML INJ ONE ×5 (12:42→13:08)
[2020-06-17] MEDS ORDERED: D5 0.45 NS 1,000 ML IV ONE (15:34)
--- NOTE | 2020-06-17 19:54 | OP ---
Date of Procedure: 06/17/2020 Surgeon: Shaggy Mayers MD [employer] Professor: PAPITO Galloway. Preoperative Diagnosis: Small bowel obstruction, mesenteric mass, history of rectal cancer. Postoperative Diagnosis: Small bowel obstruction, mesenteric mass, history of rectal cancer plus int raabdominal adhesions. Procedures: 1.Exploratory laparotomy. 2.Small bowel resection with anastomosis. 3.Excisional biopsy of mesenteric mass. 4.Lysis of adhesions. Specimen: Small bowel with mesentery and the mass at the end of it. Anesthesia: General plus local. Indications: This is a case of an 79-year-old patient who failed a conservative treatment for small bowel obstruction. The patient and family decided to go for surgical intervention with benefits, alt ernatives, and risks of laparotomy, possible resection, possible ostomy fully explained which include , but not limited to infection, bleeding, damage to adjacent structures, anesthesia complication, rec urrence of LA and even . She also understands this, may not relieve any symptoms. She might ne ed more than one surgical intervention. She understood, signed a consent. Description Of Procedure: The patient was brought to the operating room, placed in supine position. Anesthesia was done without complication. Abdominal area was prepped and draped in a sterile fashio n. Marcaine 0.5% was injected for local anesthetic followed by sharp incision in the skin in the mid line. Incision was carried down to fascia, which was opened under direct vision and we continued the exploration. We noticed the patient to have a tumor in the area of the mesentery and that is also c ontributing to adhesions causing a kink in the bowel. So after we did the exploration, we noticed th e liver to be with no masses palpated. Stomach soft and compressible. A large bowel at least extral uminal. We do not see any obvious masses. The small bowel we ran from the ligament of Treitz to the terminal ileum. We noticed that if finding there is a tumor at the base of the mesentery causing an adhesion to go over the bowel causing also a kink in the bowel. So, in order for me to address thos e issues, I removed the lysis of adhesions with the LigaSure and in order for me to remove that tumor of the mesentery, I have to remove all that segment of bowel, been affected and been damaged by the obstruction, so we obtained proximal and distal control and transected that the bowel with a KYLAH 55. We took these in weighed fashion all the way down to the root of mesentery and removed that lump in that region with the bowel itself. We did that with the help of a 0 silk, 0 chromic and also the Lig aSure. We checked for complete hemostasis. Area was irrigated. After that moment, we sent the [facility] ent out. We proceeded to put the antimesenteric border of a small bowel together to create enterotom ies and fired a KYLAH 55 and then closed the enterotomies with the TA 60. Before that, we inspected th e area with no bleeding. We also checked the anastomosis and it showed intact patency. At that mome nt, I proceeded to place a small silk at the end of the anastomosis. Also closed the mesentery with 0 chromic. Once again, we inspected the area with no bleeding. Area was irrigated profusely. The b owel was placed back into the abdominal cavity in proper position without a twist. Once again, oment um was placed over the area. At that moment, I proceeded to remove instruments and obtained sponge c ount, instrument counts correct and then proceeded to close the fascia with a #2 nylon in a running f ashion. Then, subcutaneous tissue with 3-0 chromic and skin carlito. Sponge count, instrument count s correct. The patient tolerated the procedure well. The patient will be in the ICU in stable condi tion waiting for the pathology report. OLY/JASON Voice ID: [id number] Report ID: [id number]
[2020-06-17] MEDS ORDERED: NA CHLORIDE 0.9% 500 ML IV ONE (21:56)
[2020-06-17] MEDS: MORPHINE 2 MG/ML SYR IV PRN (22:43)
[2020-06-17] MEDS ORDERED: MORPHINE 2 MG/ML SYR ONE (22:52)
[2020-06-18 05:22] LABS: Absolute Lymphocytes (CBC) 1.1 K/uL (0.7-4.9); Basophils % 0.5 % (0-1.3); Hematocrit 27.7 % (36.0-45.0); Lymphocytes % 8.6 % (15.3-44.8); MPV 9.6 fL (7.6-11.3); RBC Red Blood Cell Count 2.93 M/uL (3.86-4.86)
[2020-06-18 05:36] LABS: Magnesium 1.5 mg/dL (1.8-2.4); Potassium 4.1 mmol/L (3.5-5.1)
[2020-06-18] MEDS ORDERED: D5 0.45 NS 1,000 ML IV ONE ×3 (06:08→21:20)
[2020-06-18] MEDS: D5 0.45 NS 1,000 ML IV SCH ×3 (06:30→21:48)
[2020-06-18] MEDS ORDERED: Magnesium Sulfate 2gm IVPB 2 G/50 ML BAG IV ONE ×2 (08:43→09:00)
[2020-06-18] MEDS ORDERED: NA CHLORIDE 0.9% 500 ML IV ONE ×2 (09:57→13:00)
[2020-06-18] MEDS ORDERED: NA CHLORIDE 0.9% 500 ML ONE ×2 (10:30→13:35)
--- NOTE | 2020-06-18 11:37 | P.PN ---
Subjective Date of Service: 06/18/20 Patient is doing ok s/p surgery; patient is having minimal tenderness. May start liquids if ok with surgery. Review of Systems 10-point ROS is otherwise unremarkable Physical Examination - Vital Signs Temperature: 98.9 F Blood Pressure: 104/72 Pulse: 77 Respirations: 12 Pulse Ox (%): 97 - Physical Exam General: Alert, In no apparent distress, Oriented x3 Respiratory: Clear to auscultation bilaterally, Normal air movement Cardiovascular: Regular rate/rhythm, Normal S1 S2, No murmurs Gastrointestinal: Normal bowel sounds, Soft and benign, Non-distended, No rebound, No guarding, Tenderness Musculoskeletal: No clubbing, No swelling, No tenderness Neurological: Sensation intact, Cranial nerves 3-12 intact - Studies Medications List Reviewed: Yes Assessment & Plan - Problems (Diagnosis) (1) Anemia Current Visit: Yes Status: Acute (2) History of rectal cancer Current Visit: Yes Status: Acute (3) Mesenteric adenitis Current Visit: Yes Status: Acute (4) Mesenteric mass Current Visit: Yes Status: Acute (5) Small bowel obstruction Current Visit: Yes Status: Acute - Plan PLAN: 1. Continue with IVFs 2. Monitor pain control 3. Continue with NGT to suction 4. Monitor I's and O's 5. Monitor H&H 6. Monitor labs closely 7. GI/DVT prophylaxis Discharge Plan: Home Plan to discharge in: Greater than 2 days - Advance Directives Does patient have a Living Will: No Does patient have a Durable POA for Healthcare: Yes - Code Status/Comfort Care Code Status Assessed: Yes Code Status: Full Code Critical Care: No Time Spent Managing PTS Care (In Minutes): 30
--- NOTE | 2020-06-18 16:55 | PN ---
Date of Progress Note: 06/18/2020 Subjective: Status post laparotomy for small bowel obstruction with bowel resection. Patient is doi ng well. No complaint. Talkative. Cooperative. No shortness of breath. No chest pain. NG tube i s still in place. No flatus. Objective: HEART: S1, S2. ABDOMEN: Intact surgical site. EXTREMITIES: No calf tenderness. Good capillary refill. Laboratory Data: Blood work shows WBC count of 12.6, hemoglobin of 8.8. Chemistry shows a GFR of 1. 15, creatinine is 7. Plan: Continue hydration, bowel rest, activity out of bed. Incentive spirometry. If she improves b y tomorrow, we might remove the NG tube. HM/MODL Voice ID: [id number] Report ID: [id number]
--- NOTE | 2020-06-18 21:29 | P.PN ---
Date of Service: 06/18/20 Vital Signs Temp Pulse Resp BP Pulse Ox 99.9 F 76 14 108/41 L 97 06/18/20 19:00 06/18/20 21:00 06/18/20 21:00 06/18/20 19:00 06/18/20 21:00 Medications Acetaminophen (Tylenol Suppository) 650 mg IA Q6H PRN PRN Reason: TEMP > 101' F Stop: 07/11/20 22:53 Dextrose/Sodium Chloride (Dextrose 5% O.45% Saline) 1,000 mls @ 150 mls/hr IV .Q6H40M [facility] Stop: 07/17/20 22:00 Last Admin: 06/18/20 14:03 Dose: 1,000 mls Documented by: Morphine Sulfate (Morphine Sulfate) 2 mg IV Q4H PRN PRN Reason: Pain scale 5-7 (Moderate) Stop: 07/11/20 22:53 Last Admin: 06/17/20 22:43 Dose: 2 mg Documented by: Ondansetron HCl (Zofran) 4 mg IV Q6HP PRN PRN Reason: NAUSEA / VOMITING Stop: 07/11/20 22:53 Phenol (Phenaseptic [place]) 2 appl MM Q4H PRN PRN Reason: SORE THROAT Stop: 07/12/20 23:05 Last Admin: 06/16/20 14:42 Dose: 2 appl Documented by: Sodium Chloride (Normal Saline Flush) 10 ml IV BID [facility] Stop: 07/11/20 22:53 Last Admin: 06/18/20 20:50 Dose: 10 ml Documented by: Microbiology Results 06/11/20 18:50 Blood - Blood Aerobic Blood Culture - Final No growth in 5 days. 06/11/20 18:50 Blood - Blood Anaerobic Blood Culture - Final No growth in 5 days. 06/11/20 18:50 Blood - Blood Aerobic Blood Culture - Final No growth in 5 days. 06/11/20 18:50 Blood - Blood Anaerobic Blood Culture - Final No growth in 5 days. Assessment/ Plan: Nephrology CPS stable without CP or SOB. Malaise and fatigue. No acute events overnight. Vitals, medications, blood work and imaging reviewed in the chart. General: Oriented x3, Cooperative HEENT: Atraumatic Respiratory: Clear to auscultation bilaterally Cardiovascular: No edema, Regular rate/rhythm Gastrointestinal: Soft and benign, Non-distended, Tenderness Musculoskeletal: No clubbing, No contractures Integumentary: No rashes, No cyanosis Neurological: Normal speech Laboratory Data (last 24 hrs) 06/11/20 18:50: Magnesium 1.6 L 06/11/20 18:50: PT 11.4, INR 0.97, APTT 26.3 06/11/20 18:50: WBC 7.2, Hgb 11.4 L, Hct 34.5 L, Plt Count 215 06/11/20 18:50: Sodium 133 L, Potassium 4.0, BUN 35 H, Creatinine 2.55 H, Glucose 160 H, Total Bilirubin 0.6, AST 25, ALT 15, Alkaline Phosphatase 59, Am ylase 54, Lipase 169 Imagings Data: EXAM DESCRIPTION: CT - Abdomen Pelvis Wo Contrast - 06/11/2020 7:58 pm CLINICAL HISTORY: Abdominal pain. ABD PAIN COMPARISON: CT ABD PELVIS W CONTRAST dated 05/02/2013 TECHNIQUE: CT imaging of the abdomen and pelvis was performed without contrast. Solid organ and vascular assessment is limited due to lack of IV contrast. All CT scans are performed using dose optimization technique as appropriate and may include automated exposure control or mA/KV adjustment according to patient size. FINDINGS: The lower lung guaman are clear. The liver, spleen, pancreas, adrenal glands are within normal limits for a limited non-contrast examination.Small bilateral renal calculi are seen without hydronephrosis. Significant distention of small bowel loops identified with mild free fluid in the abdomen pelvis, compatible with moderate mechanical small-bowel obstruction. A discrete point of transition is difficult to ascertain. No pneumoperitoneum. Within the right aspect of the small bowel mesentery a 2 cm soft tissue lesion is noted which is of unclear etiology but may represent an enlarged lymph node or a small mesenteric mass. The appendix is normal. The osseous structures are within normal limits. IMPRESSION: Moderate grade mechanical small bowel obstruction is seen with mild free fluid in the abdomen and pelvis. 2 cm soft tissue lesion is seen in the right aspect of the small bowel mesentery may represent a mesenteric lymph node or small mesenteric mass. Bilateral nephrolithiasis without hydronephrosis. A limited non-contrast examination was performed as detailed. EXAM DESCRIPTION: RAD - Chest Single View - 06/11/2020 7:57 pm CLINICAL HISTORY: code sepsis Chest pain. COMPARISON: Chest Pa And Lat (2 Views) dated 11/01/2019; Chest Pa And Lat (2 Views) dated 10/03/2019; CHEST SINGLE VIEW dated 01/02/2012; CHEST SINGLE VIEW dated 11/10/2011 FINDINGS: Portable technique limits examination quality. The lungs are grossly clear. The heart is normal in size. No displaced fractures. IMPRESSION: No acute intrathoracic process suspected. EXAM DESCRIPTION: RAD - Small Bowel Series - 06/15/2020 5:21 pm CLINICAL HISTORY: Abdominal pain/ COMPARISON: June 11, 2020 cat scan FINDINGS: Contrast enters the colon by approximately 12 hours. Moderate dilatation of jejunum and portions of ileum. IMPRESSION: Patient has a very high-grade small-bowel obstruction . Conclusions/Impression: A/ ILYA likely due to hypovolemia Hyponatremia Hypokalemia Hypocalcemia Hypomagnesemia HTN DM II Anemia in chronic illness SBO sp surgery P/ Continue current POC and Medications Change IVF. Replete lytes. NPO Follow up with surgery. No NSAIDs AM labs. Daily weight
[2020-06-19] MEDS: MORPHINE 2 MG/ML SYR IV PRN (01:17)
[2020-06-19] MEDS ORDERED: MORPHINE 2 MG/ML SYR ONE (01:27)
[2020-06-19 04:46] LABS: Absolute Lymphocytes (CBC) 1.2 K/uL (0.7-4.9); Basophils % 0.4 % (0-1.3); Hematocrit 25.6 % (36.0-45.0); Lymphocytes % 7.5 % (15.3-44.8); MPV 9.3 fL (7.6-11.3); RBC Red Blood Cell Count 2.62 M/uL (3.86-4.86)
[2020-06-19] MEDS ORDERED: D5 0.45 NS 1,000 ML IV ONE (04:58)
[2020-06-19] MEDS: ACETAMINOPHEN 650MG/RECT SUPP PR PRN ×2 (05:01→20:31)
[2020-06-19 05:10] LABS: Magnesium 1.7 mg/dL (1.8-2.4)
[2020-06-19] MEDS ORDERED: ACETAMINOPHEN 650MG/RECT SUPP PR ONE (05:11)
[2020-06-19] MEDS ORDERED: GLUCAGON 1 MG/VIAL IM PRN (05:52)
[2020-06-19] MEDS ORDERED: D50W 25 GM/50 ML SYRINGE/VIAL IV PRN (05:52)
[2020-06-19] MEDS: INSULIN -REGULAR HUMAN 50 UNIT/0.5 ML ML SQ SCH ×3 (06:02→18:00)
[2020-06-19] MEDS ORDERED: INSULIN -REGULAR HUMAN 50 UNIT/0.5 ML ML ONE (06:09)
[2020-06-19] MEDS: D5 0.45 NS 1,000 ML IV SCH ×4 (07:19→20:39)
[2020-06-19] MEDS ORDERED: MAGNESIUM SULFATE 1 gm IVPB 1 GM/100 ML BAG IV ONE ×2 (08:43→09:00)
[2020-06-19] MEDS: CIPROFLOXACIN 400mg IV 400 MG/200 ML BAG IV SCH ×2 (12:02→20:18)
[2020-06-19] MEDS: METRONIDAZOLE 500mg IVPB 500 MG/100 ML BAG IV SCH ×2 (12:02→17:31)
--- NOTE | 2020-06-19 21:51 | P.PN ---
Date of Service: 06/19/20 Vital Signs Temp Pulse Resp BP Pulse Ox 101 F H 93 H 17 110/51 L 91 06/19/20 20:31 06/19/20 16:00 06/19/20 16:00 06/19/20 16:00 06/19/20 16:00 Medications Acetaminophen (Tylenol Suppository) 650 mg NC Q6H PRN PRN Reason: TEMP > 101' F Stop: 07/11/20 22:53 Last Admin: 06/19/20 20:31 Dose: 650 mg Documented by: Dextrose (Dextrose 50% Syringe/Vial) 12.5 gm IV PRN PRN PRN Reason: HYPOGLYCEMIA Stop: 07/19/20 05:53 Last Admin: 06/19/20 12:08 Dose: 12.5 gm Documented by: Glucagon (Glucagen) 1 mg IM 1X PRN PRN Reason: HYPOGLYCEMIA Stop: 07/19/20 05:53 Ciprofloxacin/Dextrose (Cipro 400 Mg/200 Ml Ivpb (Premix)) 400 mg in 200 mls @ 200 mls/hr IV Q12HR [facility]; Protocol Stop: 07/19/20 11:16 Last Admin: 06/19/20 20:18 Dose: 200 mls Documented by: Metronidazole/Sodium Chloride (Flagyl 500mg/100 Ml Iv Premix) 500 mg in 100 mls @ 200 mls/hr IV Q8HR [facility]; Protocol Stop: 07/19/20 11:16 Last Admin: 06/19/20 17:31 Dose: 100 mls Documented by: Dextrose/Lactated Ringer's (Dextrose 5%-Lactated Ringers) 1,000 mls @ 125 mls/hr IV .Q8H [facility] Stop: 07/19/20 22:01 Insulin Human Regular (Novolin -R) 0 unit SQ Q6HR [facility]; Protocol Stop: 07/19/20 06:01 Last Admin: 06/19/20 18:00 Dose: Not Given Documented by: Morphine Sulfate (Morphine Sulfate) 2 mg IV Q4H PRN PRN Reason: Pain scale 5-7 (Moderate) Stop: 07/11/20 22:53 Last Admin: 06/19/20 01:17 Dose: 2 mg Documented by: Ondansetron HCl (Zofran) 4 mg IV Q6HP PRN PRN Reason: NAUSEA / VOMITING Stop: 07/11/20 22:53 Phenol (Phenaseptic [place]) 2 appl MM Q4H PRN PRN Reason: SORE THROAT Stop: 07/12/20 23:05 Last Admin: 06/16/20 14:42 Dose: 2 appl Documented by: Sodium Chloride (Normal Saline Flush) 10 ml IV BID [facility] Stop: 07/11/20 22:53 Last Admin: 06/19/20 20:18 Dose: 10 ml Documented by: Microbiology Results 06/11/20 18:50 Blood - Blood Aerobic Blood Culture - Final No growth in 5 days. 06/11/20 18:50 Blood - Blood Anaerobic Blood Culture - Final No growth in 5 days. 06/11/20 18:50 Blood - Blood Aerobic Blood Culture - Final No growth in 5 days. 06/11/20 18:50 Blood - Blood Anaerobic Blood Culture - Final No growth in 5 days. Assessment/ Plan: Nephrology CPS stable without CP or SOB. Malaise and fatigue. No acute events overnight. Vitals, medications, blood work and imaging reviewed in the chart. General: Oriented x3, Cooperative HEENT: Atraumatic Respiratory: Clear to auscultation bilaterally Cardiovascular: No edema, Regular rate/rhythm Gastrointestinal: Soft and benign, Non-distended, Tenderness Musculoskeletal: No clubbing, No contractures Integumentary: No rashes, No cyanosis Neurological: Normal speech Laboratory Data (last 24 hrs) 06/11/20 18:50: Magnesium 1.6 L 06/11/20 18:50: PT 11.4, INR 0.97, APTT 26.3 06/11/20 18:50: WBC 7.2, Hgb 11.4 L, Hct 34.5 L, Plt Count 215 06/11/20 18:50: Sodium 133 L, Potassium 4.0, BUN 35 H, Creatinine 2.55 H, Glucose 160 H, Total Bilirubin 0.6, AST 25, ALT 15, Alkaline Phosphatase 59, Amylase 54, Lipase 169 Imagings Data: EXAM DESCRIPTION: CT - Abdomen Pelvis Wo Contrast - 06/11/2020 7:58 pm CLINICAL HISTORY: Abdominal pain. ABD PAIN COMPARISON: CT ABD PELVIS W CONTRAST dated 05/02/2013 TECHNIQUE: CT imaging of the abdomen and pelvis was performed without contrast. Solid organ and vascular assessment is limited due to lack of IV contrast. All CT scans are performed using dose optimization technique as appropriate and may include automated exposure control or mA/KV adjustment according to patient size. FINDINGS: The lower lung guaman are clear. The liver, spleen, pancreas, adrenal glands are within normal limits for a limited non-contrast examination.Small bilateral renal calculi are seen without hydronephrosis. Significant distention of small bowel loops identified with mild free fluid in the abdomen pelvis, compatible with moderate mechanical small-bowel obstruction. A discrete point of transition is difficult to ascertain. No pneumoperitoneum. Within the right aspect of the small bowel mesentery a 2 cm soft tissue lesion is noted which is of unclear etiology but may represent an enlarged lymph node or a small mesenteric mass. The appendix is normal. The osseous structures are within normal limits. IMPRESSION: Moderate grade mechanical small bowel obstruction is seen with mild free fluid in the abdomen and pelvis. 2 cm soft tissue lesion is seen in the right aspect of the small bowel mesentery may represent a mesenteric lymph node or small mesenteric mass. Bilateral nephrolithiasis without hydronephrosis. A limited non-contrast examination was performed as detailed. EXAM DESCRIPTION: RAD - Chest Single View - 06/11/2020 7:57 pm CLINICAL HISTORY: code sepsis Chest pain. COMPARISON: Chest Pa And Lat (2 Views) dated 11/01/2019; Chest Pa And Lat (2 Views) dated 10/03/2019; CHEST SINGLE VIEW dated 01/02/2012; CHEST SINGLE VIEW dated 11/10/2011 FINDINGS: Portable technique limits examination quality. The lungs are grossly clear. The heart is normal in size. No displaced fractures. IMPRESSION: No acute intrathoracic process suspected. EXAM DESCRIPTION: RAD - Small Bowel Series - 06/15/2020 5:21 pm CLINICAL HISTORY: Abdominal pain/ COMPARISON: June 11, 2020 cat scan FINDINGS: Contrast enters the colon by approximately 12 hours. Moderate dilatation of jejunum and portions of ileum. IMPRESSION: Patient has a very high-grade small-bowel obstruction . Conclusions/Impression: A/ ILYA likely due to hypovolemia Hyponatremia Hypokalemia Hypocalcemia Hypomagnesemia HTN DM II Anemia in chronic illness SBO sp surgery P/ Continue current POC and Medications Change IVF [id number]. Consider TPN to maintain nutrition. Replete lytes. NPO Follow up with surgery. No NSAIDs AM labs. Daily weight
[2020-06-19] MEDS: D5LR 1,000 ML IV SCH (22:44)
[2020-06-20] MEDS: METRONIDAZOLE 500mg IVPB 500 MG/100 ML BAG IV SCH ×3 (00:15→18:11)
[2020-06-20] MEDS: MORPHINE 2 MG/ML SYR IV PRN ×3 (03:48→22:38)
[2020-06-20] MEDS: ONDANSETRON 4 MG/2 ML VIAL IV PRN ×3 (04:02→22:45)
[2020-06-20] MEDS: INSULIN -REGULAR HUMAN 50 UNIT/0.5 ML ML SQ SCH ×4 (05:51→18:19)
[2020-06-20] MEDS ORDERED: MAGNESIUM SULFATE 1 gm IVPB 1 GM/100 ML BAG IV ONE (09:00)
--- NOTE | 2020-06-20 09:20 | P.PN ---
Subjective Date of Service: 06/19/20 PATIENT IS DOING BETTER. NGT REMAINS IN PLACE. WILL CLAMP NG TUBE & POSSIBLE DISCHARGE Review of Systems 10-point ROS is otherwise unremarkable Physical Examination - Vital Signs Temperature: 98.4 F Blood Pressure: 92/47 Pulse: 78 Respirations: 17 Pulse Ox (%): 91 - Physical Exam General: Alert, In no apparent distress, Oriented x3 Respiratory: Clear to auscultation bilaterally, Normal air movement Cardiovascular: Regular rate/rhythm, Normal S1 S2, No murmurs Gastrointestinal: Hypoactive, Soft and benign, Non-distended, No rebound, No guarding, Distended, Tenderness Musculoskeletal: No clubbing, No swelling, No tenderness Neurological: Sensation intact, Cranial nerves 3-12 intact - Studies Medications List Reviewed: Yes Assessment & Plan - Problems (Diagnosis) (1) Anemia Current Visit: Yes Status: Acute (2) History of rectal cancer Current Visit: Yes Status: Acute (3) Mesenteric adenitis Current Visit: Yes Status: Acute (4) Mesenteric mass Current Visit: Yes Status: Acute (5) Small bowel obstruction Current Visit: Yes Status: Acute - Plan PLAN: 1. Continue with IVFs 2. Monitor pain control 3. Continue with NGT to suction; plan to clamp NG tube in a.m. 4. Monitor I's and O's 5. Monitor H&H 6. Monitor labs closely 7. Repeat abdominal pain in the morning 8. GI/DVT prophylaxis Discharge Plan: Home Plan to discharge in: Greater than 2 days - Advance Directives Does patient have a Living Will: No Does patient have a Durable POA for Healthcare: Yes - Code Status/Comfort Care Code Status: Full Code Critical Care: No Time Spent Managing PTS Care (In Minutes): 30
[2020-06-20] MEDS: CIPROFLOXACIN 400mg IV 400 MG/200 ML BAG IV SCH ×2 (09:23→21:03)
[2020-06-20] MEDS: D5LR 1,000 ML IV SCH ×2 (09:24→14:00)
--- NOTE | 2020-06-20 13:20 | RAD REPORT ---
EXAM DESCRIPTION: RAD - Abdomen 1 View (KUB) - 06/20/2020 12:54 pm CLINICAL HISTORY: ABDOMINAL DISTENTION COMPARISON: Small Bowel Series dated 06/15/2020; Abdomen Pelvis Wo Contrast dated 06/11/2020 FINDINGS: A few air-filled nondilated small bowel loops are present. No dilated colon. Contrast is p resent in the colon from prior small bowel examination. There is no extravasation of the PO contrast. No free air or pneumatosis identified. Midline abdomen skin carilto are present. No suspicious calci fications. No significant bony findings IMPRESSION: No bowel obstruction or free air. No extravasation of remnant contrast in the colon from the June 15 small bowel examination.
[2020-06-20] MEDS ORDERED: AA 5%/D20W/ELECTROLYTES-TPN 2,000 ML, Lipids 20% 250 ML with MULTIVITAMINS INJ 10 ML IV SCH ×3 (17:00)
[2020-06-20] MEDS: AA 4.25%/D10W/ELECTROLYTES 2,000 ML, Lipids 20% 250 ML with MULTIVITAMINS INJ 10 ML IV SCH ×3 (18:12)
--- NOTE | 2020-06-20 19:39 | P.PN ---
Date of Service: 06/20/20 Vital Signs Temp Pulse Resp BP Pulse Ox 97.9 F 82 18 107/52 L 92 06/20/20 16:00 06/20/20 16:00 06/20/20 16:00 06/20/20 16:00 06/20/20 16:00 Medications Acetaminophen (Tylenol Suppository) 650 mg ME Q6H PRN PRN Reason: TEMP > 101' F Stop: 07/11/20 22:53 Last Admin: 06/19/20 20:31 Dose: 650 mg Documented by: Dextrose (Dextrose 50% Syringe/Vial) 12.5 gm IV PRN PRN PRN Reason: HYPOGLYCEMIA Stop: 07/19/20 05:53 Last Admin: 06/19/20 12:08 Dose: 12.5 gm Documented by: Glucagon (Glucagen) 1 mg IM 1X PRN PRN Reason: HYPOGLYCEMIA Stop: 07/19/20 05:53 Ciprofloxacin/Dextrose (Cipro 400 Mg/200 Ml Ivpb (Premix)) 400 mg in 200 mls @ 200 mls/hr IV Q12HR SOLEDAD; Protocol Stop: 07/19/20 11:16 Last Admin: 06/20/20 09:23 Dose: 200 mls Documented by: Metronidazole/Sodium Chloride (Flagyl 500mg/100 Ml Iv Premix) 500 mg in 100 mls @ 200 mls/hr IV Q8HR SOLEDAD; Protocol Stop: 07/19/20 11:16 Last Admin: 06/20/20 18:11 Dose: 100 mls Documented by: Multivitamins 10 ml/ Amino Acids/Electrolytes/Dextrose/Fat Emulsion Intravenous 2,260 mls @ 80 mls/hr IV 1700 SOLEDAD Stop: 07/20/20 17:01 Last Admin: 06/20/20 18:12 Dose: 2,260 mls Documented by: Insulin Human Regular (Novolin -R) 0 unit SQ Q6HR SOLEDAD; Protocol Stop: 07/19/20 06:01 Last Admin: 06/20/20 18:19 Dose: 8 unit Documented by: Morphine Sulfate (Morphine Sulfate) 2 mg IV Q4H PRN PRN Reason: Pain scale 5-7 (Moderate) Stop: 07/11/20 22:53 Last Admin: 06/20/20 14:29 Dose: 2 mg Documented by: Ondansetron HCl (Zofran) 4 mg IV Q6HP PRN PRN Reason: NAUSEA / VOMITING Stop: 07/11/20 22:53 Last Admin: 06/20/20 14:32 Dose: 4 mg Documented by: Phenol (Phenaseptic [place]) 2 appl MM Q4H PRN PRN Reason: SORE THROAT Stop: 07/12/20 23:05 Last Admin: 06/16/20 14:42 Dose: 2 appl Documented by: Sodium Chloride (Normal Saline Flush) 10 ml IV BID [facility]AD Stop: 07/11/20 22:53 Last Admin: 06/20/20 09:24 Dose: 10 ml Documented by: Microbiology Results 06/11/20 18:50 Blood - Blood Aerobic Blood Culture - Final No growth in 5 days. 06/11/20 18:50 Blood - Blood Anaerobic Blood Culture - Final No growth in 5 days. 06/11/20 18:50 Blood - Blood Aerobic Blood Culture - Final No growth in 5 days. 06/11/20 18:50 Blood - Blood Anaerobic Blood Culture - Final No growth in 5 days. Assessment/ Plan: Nephrology CPS stable without CP or SOB. Malaise and fatigue. No acute events overnight. Vitals, medications, blood work and imaging reviewed in the chart. General: Oriented x3, Cooperative HEENT: Atraumatic Respiratory: Clear to auscultation bilaterally Cardiovascular: No edema, Regular rate/rhythm Gastrointestinal: Soft and benign, Non-distended, Tenderness Musculoskeletal: No clubbing, No contractures Integumentary: No rashes, No cyanosis Neurological: Normal speech Laboratory Data (last 24 hrs) 06/11/20 18:50: Magnesium 1.6 L 06/11/20 18:50: PT 11.4, INR 0.97, APTT 26.3 06/11/20 18:50: WBC 7.2, Hgb 11.4 L, Hct 34.5 L, Plt Count 215 06/11/20 18:50: Sodium 133 L, Potassium 4.0, BUN 35 H, Creatinine 2.55 H, Glucose 160 H, Total Bilirubin 0.6, AST 25, ALT 15, Alkaline Phosphatase 59, Amylase 54, Lipase 169 Imagings Data: EXAM DESCRIPTION: CT - Abdomen Pelvis Wo Contrast - 06/11/2020 7:58 pm CLINICAL HISTORY: Abdominal pain. ABD PAIN COMPARISON: CT ABD PELVIS W CONTRAST dated 05/02/2013 TECHNIQUE: CT imaging of the abdomen and pelvis was performed without contrast. Solid organ and vascular assessment is limited due to lack of IV contrast. All CT scans are performed using dose optimization technique as appropriate and may include automated exposure control or mA/KV adjustment according to patient size. FINDINGS: The lower lung guaman are clear. The liver, spleen, pancreas, adrenal glands are within normal limits for a limited non-contrast examination.Small bilateral renal calculi are seen without hydronephrosis. Significant distention of small bowel loops identified with mild free fluid in the abdomen pelvis, compatible with moderate mechanical small-bowel obstruction. A discrete point of transition is difficult to ascertain. No pneumoperitoneum. Within the right aspect of the small bowel mesentery a 2 cm soft tissue lesion is noted which is of unclear etiology but may represent an enlarged lymph node or a small mesenteric mass. The appendix is normal. The osseous structures are within normal limits. IMPRESSION: Moderate grade mechanical small bowel obstruction is seen with mild free fluid in the abdomen and pelvis. 2 cm soft tissue lesion is seen in the right aspect of the small bowel mesentery may represent a mesenteric lymph node or small mesenteric mass. Bilateral nephrolithiasis without hydronephrosis. A limited non-contrast examination was performed as detailed. EXAM DESCRIPTION: RAD - Chest Single View - 06/11/2020 7:57 pm CLINICAL HISTORY: code sepsis Chest pain. COMPARISON: Chest Pa And Lat (2 Views) dated 11/01/2019; Chest Pa And Lat (2 Views) dated 10/03/2019; CHEST SINGLE VIEW dated 01/02/2012; CHEST SINGLE VIEW dated 11/10/2011 FINDINGS: Portable technique limits examination quality. The lungs are grossly clear. The heart is normal in size. No displaced fr actures. IMPRESSION: No acute intrathoracic process suspected. EXAM DESCRIPTION: RAD - Small Bowel Series - 06/15/2020 5:21 pm CLINICAL HISTORY: Abdominal pain/ COMPARISON: June 11, 2020 cat scan FINDINGS: Contrast enters the colon by approximately 12 hours. Moderate dilatation of jejunum and portions of ileum. IMPRESSION: Patient has a very high-grade small-bowel obstruction . Conclusions/Impression: A/ ILYA likely due to hypovolemia Hyponatremia Hypokalemia Hypocalcemia Hypomagnesemia HTN DM II Anemia in chronic illness SBO sp surgery P/ Continue current POC and Medications Continue IVF. Consider TPN to maintain nutrition. Replete lytes prn. NPO Follow up with surgery. No NSAIDs AM labs. Daily weight
[2020-06-21] MEDS: METRONIDAZOLE 500mg IVPB 500 MG/100 ML BAG IV SCH ×2 (00:20→10:00)
[2020-06-21] MEDS: INSULIN -REGULAR HUMAN 50 UNIT/0.5 ML ML SQ SCH ×4 (06:00→18:00)
[2020-06-21 08:34] LABS: Magnesium 2.1 mg/dL (1.8-2.4); Potassium 4.1 mmol/L (3.5-5.1)
[2020-06-21] MEDS: CIPROFLOXACIN 400mg IV 400 MG/200 ML BAG IV SCH ×2 (10:00→20:26)
[2020-06-21 11:44] LABS: Basophils % 0.2 % (0-1.3); Hematocrit 24.9 % (36.0-45.0); MPV 9.8 fL (7.6-11.3); RBC Red Blood Cell Count 2.63 M/uL (3.86-4.86)
[2020-06-21] MEDS ORDERED: NA CHLORIDE 0.9% 500 ML IV ONE (11:59)
[2020-06-21 12:00] LABS: Potassium 4.2 mmol/L (3.5-5.1)
[2020-06-21 12:07] LABS: Blood Morphology Comment NOT SEEN (NOT SEEN); Platelet Estimate ADEQ
--- NOTE | 2020-06-21 12:28 | PN ---
Date of Progress Note: 06/21/2020 Diagnoses: History of small-bowel obstruction, history of mesenteric mass, history of rectal cancer, history of laparotomy and bowel resection. Subjective: The patient is doing well. No complaint. Talkative, oriented x3. Passing flatus, havi ng bowel movement. No fever. No shortness of breath. No chest pain. Objective: Chest: Clear. Abdomen: Soft and depressible. Incisions are intact. No cellulitis. Extremity: No calf tendernes s. Plan: WBC count is still 24, we are trying to rule out the cause of that. We ordered a chest x-ray, UA and C and S. Remove the Pacheco. NG tube was removed yesterday. We are not going to feed her yet . She is on PPN, but we noticed decline in the WBC count before the PPN was started and also before the antibiotic was given. We are still working no differential diagnosis. Clinically, she looks bet ter. We going to make some changes on the antibiotics. OLY/JASON Voice ID: [id number] Report ID: [id number]
[2020-06-21] MEDS ORDERED: NA CHLORIDE 0.9% 250 ML ONE (12:29)
--- NOTE | 2020-06-21 13:03 | RAD REPORT ---
EXAM DESCRIPTION: RAD - Chest Single View - 06/21/2020 12:57 pm CLINICAL HISTORY: r/o infection, elevated WBC Chest pain. COMPARISON: Abdomen 1 View (KUB) dated 06/20/2020; Chest Single View dated 06/11/2020; Chest Pa And La t (2 Views) dated 11/01/2019; Chest Pa And Lat (2 Views) dated 10/03/2019 FINDINGS: Portable technique limits examination quality. Small bilateral pleural effusions are noted with opacity in the medial left lung base which may repre sent atelectasis or pneumonia. The heart is normal in size. No displaced fractures.
--- NOTE | 2020-06-21 13:05 | RAD REPORT ---
EXAM DESCRIPTION: RAD - Abdomen Single View - 06/21/2020 12:57 pm CLINICAL HISTORY: hx of laparotomy, hx of bowel resection Pain COMPARISON: Small Bowel Series dated 06/15/2020; Abdomen 1 View (KUB) dated 06/20/2020; Abdomen W Ere ct dated 06/13/2020; Abdomen Pelvis Wo Contrast dated 06/11/2020 FINDINGS: Postsurgical changes of midline laparotomy noted. Contrast is present in the colon. A few mildly prominent small bowel loops are seen centrally abdomen without bowel obstruction pattern. No p athologic calcifications or significant pneumoperitoneum.
[2020-06-21 13:37] LABS: Urine Appearance CLEAR; Urine Bilirubin NEGATIVE (NEG); Urine Blood NEGATIVE (NEG); Urine Color YELLOW; Urine Glucose NEGATIVE (NEG); Urine Protein 1+ (NEG); Urine Specific Gravity 1.015 (1.005-1.030); Urine Urobilinogen 0.2 mg/dL (0.2-1.0); Urine pH 5.5 (5.0-7.0)
[2020-06-21 13:49] LABS: Urine Bacteria <20 /HPF (<20); Urine Culture Reflex Order NOT NEEDED; Urine RBC <5 /HPF (NONE SEEN); Urine Urothelial Cells <5 /HPF (NONE SEEN)
[2020-06-21] MEDS: PIPER/TAZO/NS 3.375gm 3.375 GM/100 ML BAG IVPB SCH ×2 (14:00→20:26)
[2020-06-21] MEDS: MORPHINE 2 MG/ML SYR IV PRN (15:07)
[2020-06-21] MEDS: ONDANSETRON 4 MG/2 ML VIAL IV PRN (15:07)
[2020-06-21] MEDS ORDERED: Meropenem 500 MG VIAL IV SCH (17:00)
[2020-06-21] MEDS: AA 4.25%/D10W/ELECTROLYTES 2,000 ML, Lipids 20% 250 ML with MULTIVITAMINS INJ 10 ML IV SCH ×3 (17:56)
--- NOTE | 2020-06-21 21:27 | P.PN ---
Date of Service: 06/21/20 Vital Signs Temp Pulse Resp BP Pulse Ox 98.1 F 83 18 102/45 L 97 06/21/20 16:00 06/21/20 16:00 06/21/20 16:00 06/21/20 16:00 06/21/20 16:00 Medications Acetaminophen (Tylenol Suppository) 650 mg AL Q6H PRN PRN Reason: TEMP > 101' F Stop: 07/11/20 22:53 Last Admin: 06/19/20 20:31 Dose: 650 mg Documented by: Dextrose (Dextrose 50% Syringe/Vial) 12.5 gm IV PRN PRN PRN Reason: HYPOGLYCEMIA Stop: 07/19/20 05:53 Last Admin: 06/19/20 12:08 Dose: 12.5 gm Documented by: Glucagon (Glucagen) 1 mg IM 1X PRN PRN Reason: HYPOGLYCEMIA Stop: 07/19/20 05:53 Multivitamins 10 ml/ Amino Acids/Electrolytes/Dextrose/Fat Emulsion Intravenous 2,260 mls @ 80 mls/hr IV 1700 [facility]EDAD Stop: 07/20/20 17:01 Last Admin: 06/21/20 17:56 Dose: 2,260 mls Documented by: Piperacillin Sod/Tazobactam Sod (Zosyn 3.375 Gm/100 Ml Ns Ivpb) 3.375 gm in 100 mls @ 25 mls/hr IVPB Q8H [facility]EDAD; Protocol Stop: 07/21/20 13:01 Last Admin: 06/21/20 20:26 Dose: 100 mls Documented by: Ciprofloxacin/Dextrose (Cipro 400 Mg/200 Ml Ivpb (Premix)) 400 mg in 200 mls @ 200 mls/hr IV Q12HR [facility]; Protocol Stop: 07/21/20 21:01 Last Admin: 06/21/20 20:26 Dose: 200 mls Documented by: Insulin Human Regular (Novolin -R) 0 unit SQ Q6HR [facility]; Protocol Stop: 07/19/20 06:01 Last Admin: 06/21/20 18:00 Dose: Not Given Documented by: Morphine Sulfate (Morphine Sulfate) 2 mg IV Q4H PRN PRN Reason: Pain scale 5-7 (Moderate) Stop: 07/11/20 22:53 Last Admin: 06/21/20 15:07 Dose: 2 mg Documented by: Ondansetron HCl (Zofran) 4 mg IV Q6HP PRN PRN Reason: NAUSEA / VOMITING Stop: 07/11/20 22:53 Last Admin: 06/21/20 15:07 Dose: 4 mg Documented by: Phenol (Phenaseptic [place]) 2 appl MM Q4H PRN PRN Reason: SORE THROAT Stop: 07/12/20 23:05 Last Admin: 06/16/20 14:42 Dose: 2 appl Documented by: Sodium Chloride (Normal Saline Flush) 10 ml IV BID [facility] Stop: 07/11/20 22:53 Last Admin: 06/21/20 20:26 Dose: 10 ml Documented by: Microbiology Results 06/11/20 18:50 Blood - Blood Aerobic Blood Culture - Final No growth in 5 days. 06/11/20 18:50 Blood - Blood Anaerobic Blood Culture - Final No growth in 5 days. 06/11/20 18:50 Blood - Blood Aerobic Blood Culture - Final No growth in 5 days. 06/11/20 18:50 Blood - Blood Anaerobic Blood Culture - Final No growth in 5 days. Assessment/ Plan: Nephrology Feeling better. Tolerating TPN. CPS stable without CP or SOB. No acute events overnight. Vitals, medications, blood work and imaging reviewed in the chart. General: Oriented x3, Cooperative HEENT: Atraumatic Respiratory: Clear to auscultation bilaterally Cardiovascular: No edema, Regular rate/rhythm Gastrointestinal: Soft and benign, Non-distended, Tenderness Musculoskeletal: No clubbing, No contractures Integumentary: No rashes, No cyanosis Neurological: Normal speech Laboratory Data (last 24 hrs) 06/11/20 18:50: Magnesium 1.6 L 06/11/20 18:50: PT 11.4, INR 0.97, APTT 26.3 06/11/20 18:50: WBC 7.2, Hgb 11.4 L, Hct 34.5 L, Plt Count 215 06/11/20 18:50: Sodium 133 L, Potassium 4.0, BUN 35 H, Creatinine 2.55 H, Glucose 160 H, Total Bilirubin 0.6, AST 25, ALT 15, Alkaline Phosphatase 59, Amylase 54, Lipase 169 Imagings Data: EXAM DESCRIPTION: CT - Abdomen Pelvis Wo Contrast - 06/11/2020 7:58 pm CLINICAL HISTORY: Abdominal pain. ABD PAIN COMPARISON: CT ABD PELVIS W CONTRAST dated 05/02/2013 TECHNIQUE: CT imaging of the abdomen and pelvis was performed without contrast. Solid organ and vascular assessment is limited due to lack of IV contrast. All CT scans are performed using dose optimization technique as appropriate and may include automated exposure control or mA/KV adjustment according to patient size. FINDINGS: The lower lung guaman are clear. The liver, spleen, pancreas, adrenal glands are within normal limits for a limited non-contrast examination.Small bilateral renal calculi are seen without hydronephrosis. Significant distention of small bowel loops identified with mild free fluid in the abdomen pelvis, compatible with moderate mechanical small-bowel obstruction. A discrete point of transition is difficult to ascertain. No pneumoperitoneum. Within the right aspect of the small bowel mesentery a 2 cm soft tissue lesion is noted which is of unclear etiology but may represent an enlarged lymph node or a small mesenteric mass. The appendix is normal. The osseous structures are within normal limits. IMPRESSION: Moderate grade mechanical small bowel obstruction is seen with mild free fluid in the abdomen and pelvis. 2 cm soft tissue lesion is seen in the right aspect of the small bowel mesentery may represent a mesenteric lymph node or small mesenteric mass. Bilateral nephrolithiasis without hydronephrosis. A limited non-contrast examination was performed as detailed. EXAM DESCRIPTION: RAD - Chest Single View - 06/11/2020 7:57 pm CLINICAL HISTORY: code sepsis Chest pain. COMPARISON: Chest Pa And Lat (2 Views) dated 11/01/2019; Chest Pa And Lat (2 View s) dated 10/03/2019; CHEST SINGLE VIEW dated 01/02/2012; CHEST SINGLE VIEW dated 11/10/2011 FINDINGS: Portable technique limits examination quality. The lungs are grossly clear. The heart is normal in size. No displaced fractures. IMPRESSION: No acute intrathoracic process suspected. EXAM DESCRIPTION: RAD - Small Bowel Series - 06/15/2020 5:21 pm CLINICAL HISTORY: Abdominal pain/ COMPARISON: June 11, 2020 cat scan FINDINGS: Contrast enters the colon by approximately 12 hours. Moderate dilatation of jejunum and portions of ileum. IMPRESSION: Patient has a very high-grade small-bowel obstruction . Conclusions/Impression: A/ ILYA likely due to hypovolemia Hyponatremia Hypokalemia Hypocalcemia Hypomagnesemia HTN DM II Anemia in chronic illness SBO sp surgery P/ Continue current POC and Medications Consider TPN to maintain nutrition. Replete lytes prn. NPO Follow up with surgery. No NSAIDs AM labs. Daily weight
[2020-06-22] MEDS: ONDANSETRON 4 MG/2 ML VIAL IV PRN (00:07)
[2020-06-22] MEDS: MORPHINE 2 MG/ML SYR IV PRN (00:17)
[2020-06-22] MEDS: PIPER/TAZO/NS 3.375gm 3.375 GM/100 ML BAG IVPB SCH ×3 (04:11→21:43)
[2020-06-22] MEDS: INSULIN -REGULAR HUMAN 50 UNIT/0.5 ML ML SQ SCH ×4 (05:59→18:00)
[2020-06-22 06:26] LABS: Basophils % 0.2 % (0-1.3); Hematocrit 23.6 % (36.0-45.0); Lymphocytes % 5.4 % (15.3-44.8)
[2020-06-22 06:36] LABS: Potassium 3.9 mmol/L (3.5-5.1)
[2020-06-22 07:51] LABS: Blood Morphology Comment NOT SEEN (NOT SEEN); Platelet Estimate ADEQ; White Blood Cell Scan OK
[2020-06-22] MEDS ORDERED: KCL 20 MEQ/100 mL IVPB 20 MEQ/100 ML BAG IV SCH (09:00)
--- NOTE | 2020-06-22 09:25 | PN ---
Date of Progress Note: 06/22/2020 Diagnoses: 1.History of bowel obstruction. 2.History of laparotomy with bowel resection. 3.History of tumor removed from the mesentery. 4.History of rectal cancer. Subjective: The patient is doing better, passing flatus, having bowel movement. No shortness of daniela ath. No chest pain. Objective: Chest: Clear. Abdomen: Intact surgical site. Extremities: Good capillary refill. Laboratory Data: The WBC count finally started coming down, today is 18 from 24. The patient is afe brile. Potassium 3.9. UA is still pending. Plan: We are going to give her clear liquid diet. Out of bed, ambulation, incentive spirometry. Co ntinue antibiotics. Follow up cultures. HM/MODL Voice ID: [id number] Report ID: [id number]
[2020-06-22] MEDS: CIPROFLOXACIN 400mg IV 400 MG/200 ML BAG IV SCH ×2 (10:14→21:42)
[2020-06-22] MEDS ORDERED: NA CHLORIDE 0.9% 250 ML IV SCH (11:00)
--- NOTE | 2020-06-22 16:13 | P.PN ---
Subjective Date of Service: 06/20/20 Continue PPN. NG tube was removed. Patient is clinically feeling better. Continue with current plan of care at this time. White blood cell counts elevated. Change antibiotic therapy. Review of Systems 10-point ROS is otherwise unremarkable Physical Examination - Vital Signs Temperature: 97.9 F Blood Pressure: 103/47 Pulse: 70 Respirations: 18 Pulse Ox (%): 99 - Physical Exam General: Alert, In no apparent distress, Oriented x3 Respiratory: Clear to auscultation bilaterally, Normal air movement Cardiovascular: Regular rate/rhythm, Normal S1 S2, No murmurs Gastrointestinal: Normal bowel sounds, Soft and benign, Distended, Tenderness Musculoskeletal: No tenderness Integumentary: No rashes Neurological: Sensation intact, Cranial nerves 3-12 intact - Studies Medications List Reviewed: Yes Assessment & Plan - Problems (Diagnosis) (1) Anemia Current Visit: Yes Status: Acute (2) History of rectal cancer Current Visit: Yes Status: Acute (3) Mesenteric adenitis Current Visit: Yes Status: Acute (4) Mesenteric mass Current Visit: Yes Status: Acute (5) Small bowel obstruction Current Visit: Yes Status: Acute (6) Leukocytosis Current Visit: Yes Status: Acute - Plan PLAN: Continue with plan of care as mentioned below: 1. Continue with IVFs 2. Monitor pain control 3. DC'd NGT; started on PPN 4. Monitor I's and O's 5. Monitor H&H 6. Monitor labs closely 7. Appreciate surgical consultation 8. GI/DVT prophylaxis Discharge Plan: Home Plan to discharge in: Greater than 2 days - Advance Directives Does patient have a Living Will: No Does patient have a Durable POA for Healthcare: Yes - Code Status/Comfort Care Code Status: Full Code Critical Care: No Time Spent Managing PTS Care (In Minutes): 30
--- NOTE | 2020-06-22 16:16 | P.PN ---
Subjective Date of Service: 06/21/20 Tolerating PPN. May be able to start patient on a clear liquid diet. Review of Systems 10-point ROS is otherwise unremarkable Physical Examination - Vital Signs Temperature: 97.9 F Blood Pressure: 103/47 Pulse: 70 Respirations: 18 Pulse Ox (%): 99 - Physical Exam General: Alert, In no apparent distress, Oriented x3 Respiratory: Clear to auscultation bilaterally, Normal air movement Cardiovascular: Regular rate/rhythm, Normal S1 S2, No murmurs Gastrointestinal: Normal bowel sounds, Soft and benign, Non-distended, No rebound, No guarding, Tenderness (Mild tenderness) Musculoskeletal: No clubbing, No swelling, No tenderness Neurological: Sensation intact, Cranial nerves 3-12 intact - Studies Medications List Reviewed: Yes Assessment & Plan - Problems (Diagnosis) (1) Anemia Current Visit: Yes Status: Acute (2) History of rectal cancer Current Visit: Yes Status: Acute (3) Mesenteric adenitis Current Visit: Yes Status: Acute (4) Mesenteric mass Current Visit: Yes Status: Acute (5) Small bowel obstruction Current Visit: Yes Status: Acute (6) Leukocytosis Current Visit: Yes Status: Acute - Plan PLAN: Continue with plan of care as mentioned below: 1. Hep-Lock IV 2. Continue pain control as tolerated; physical therapy evaluation 3. DC'd NGT; continue with PPN. Plan to wean off 4. Monitor I's and O's 5. Monitor H&H 6. Monitor labs closely 7. Appreciate surgical consultation 8. GI/DVT prophylaxis Discharge Plan: Home Plan to discharge in: 48 Hours - Advance Directives Does patient have a Living Will: No Does patient have a Durable POA for Healthcare: Yes - Code Status/Comfort Care Code Status: Full Code Critical Care: No Time Spent Managing PTS Care (In Minutes): 25
--- NOTE | 2020-06-22 16:19 | P.PN ---
Subjective Date of Service: 06/22/20 Patient started on clear liquid diet. Hemoglobin was decreased and will transfuse 1 unit of packed red blood cells. White blood cell count is coming down as well. Currently on Zosyn and ciprofloxacin. Will start weaning off of the PPN in the morning. Review of Systems 10-point ROS is otherwise unremarkable Physical Examination - Vital Signs Temperature: 97.9 F Blood Pressure: 103/47 Pulse: 70 Respirations: 18 Pulse Ox (%): 99 - Physical Exam General: Alert, In no apparent distress, Oriented x3 Respiratory: Clear to auscultation bilaterally, Normal air movement Cardiovascular: Regular rate/rhythm, Normal S1 S2, No murmurs Gastrointestinal: Normal bowel sounds, Soft and benign, Non-distended, Tenderness (Mildly tender) Musculoskeletal: No clubbing, No swelling, No tenderness Integumentary: No rashes Neurological: Sensation intact, Cranial nerves 3-12 intact - Studies Medications List Reviewed: Yes Assessment & Plan - Problems (Diagnosis) (1) Status post laparoscopic procedure Current Visit: Yes Status: Acute (2) Anemia Current Visit: Yes Status: Acute (3) History of rectal cancer Current Visit: Yes Status: Acute (4) Mesenteric adenitis Current Visit: Yes Status: Acute (5) Mesenteric mass Current Visit: Yes Status: Acute (6) Small bowel obstruction Current Visit: Yes Status: Acute (7) Leukocytosis Current Visit: Yes Status: Acute - Plan PLAN: Continue with plan of care as mentioned below: 1. Hep-Lock IV 2. Continue pain control as tolerated; physical therapy evaluation continued 3. Continue with PPN-wean off in a.m. as patient's diet advances. 4. Monitor I's and O's 5. Monitor H&H 6. Monitor labs closely 7. Appreciate surgical consultation 8. GI/DVT prophylaxis Discharge Plan: Home Plan to discharge in: 48 Hours - Advance Directives Does patient have a Living Will: No Does patient have a Durable POA for Healthcare: Yes - Code Status/Comfort Care Code Status: Full Code Critical Care: No Time Spent Managing PTS Care (In Minutes): 30
[2020-06-22] MEDS: AA 4.25%/D10W/ELECTROLYTES 2,000 ML, Lipids 20% 250 ML with MULTIVITAMINS INJ 10 ML IV SCH ×3 (18:20)
--- NOTE | 2020-06-22 21:05 | P.PN ---
Date of Service: 06/22/20 Vital Signs Temp Pulse Resp BP Pulse Ox 97.9 F 70 18 103/47 L 99 06/22/20 16:19 06/22/20 16:19 06/22/20 16:19 06/22/20 16:19 06/22/20 16:19 Medications Acetaminophen (Tylenol Suppository) 650 mg [place] Q6H PRN PRN Reason: TEMP > 101' F Stop: 07/11/20 22:53 Last Admin: 06/19/20 20:31 Dose: 650 mg Documented by: Dextrose (Dextrose 50% Syringe/Vial) 12.5 gm IV PRN PRN PRN Reason: HYPOGLYCEMIA Stop: 07/19/20 05:53 Last Admin: 06/19/20 12:08 Dose: 12.5 gm Documented by: Glucagon (Glucagen) 1 mg IM 1X PRN PRN Reason: HYPOGLYCEMIA Stop: 07/19/20 05:53 Multivitamins 10 ml/ Amino Acids/Electrolytes/Dextrose/Fat Emulsion Intravenous 2,260 mls @ 80 mls/hr IV 1700 [facility] Stop: 07/20/20 17:01 Last Admin: 06/22/20 18:20 Dose: 2,260 mls Documented by: Piperacillin Sod/Tazobactam Sod (Zosyn 3.375 Gm/100 Ml Ns Ivpb) 3.375 gm in 100 mls @ 25 mls/hr IVPB Q8H [facility]; Protocol Stop: 07/21/20 13:01 Last Admin: 06/22/20 13:09 Dose: 100 mls Documented by: Ciprofloxacin/Dextrose (Cipro 400 Mg/200 Ml Ivpb (Premix)) 400 mg in 200 mls @ 200 mls/hr IV Q12HR [facility]; Protocol Stop: 07/21/20 21:01 Last Admin: 06/22/20 10:14 Dose: 200 mls Documented by: Sodium Chloride (Sodium Chloride) 250 mls @ 0 mls/hr IV .Q0M [facility] Stop: 07/22/20 11:01 Insulin Human Regular (Novolin -R) 0 unit SQ Q6HR [facility]; Protocol Stop: 07/19/20 06:01 Last Admin: 06/22/20 18:00 Dose: Not Given Documented by: Morphine Sulfate (Morphine Sulfate) 2 mg IV Q4H PRN PRN Reason: Pain scale 5-7 (Moderate) Stop: 07/11/20 22:53 Last Admin: 06/22/20 00:17 Dose: 2 mg Documented by: Ondansetron HCl (Zofran) 4 mg IV Q6HP PRN PRN Reason: NAUSEA / VOMITING Stop: 07/11/20 22:53 Last Admin: 06/22/20 00:07 Dose: 4 mg Documented by: Phenol (Phenaseptic [place]) 2 appl MM Q4H PRN PRN Reason: SORE THROAT Stop: 07/12/20 23:05 Last Admin: 06/16/20 14:42 Dose: 2 appl Documented by: Sodium Chloride (Normal Saline Flush) 10 ml IV BID [facility] Stop: 07/11/20 22:53 Last Admin: 06/22/20 10:29 Dose: 10 ml Documented by: Microbiology Results 06/11/20 18:50 Blood - Blood Aerobic Blood Culture - Final No growth in 5 days. 06/11/20 18:50 Blood - Blood Anaerobic Blood Culture - Final No growth in 5 days. 06/11/20 18:50 Blood - Blood Aerobic Blood Culture - Final No growth in 5 days. 06/11/20 18:50 Blood - Blood Anaerobic Blood Culture - Final No growth in 5 days. Assessment/ Plan: Nephrology Feeling better. Tolerating TPN. CPS stable without CP or SOB. No acute events overnight. Vitals, medications, blood work and imaging reviewed in the chart. General: Oriented x3, Cooperative HEENT: Atraumatic Respiratory: Clear to auscultation bilaterally Cardiovascular: No edema, Regular rate/rhythm Gastrointestinal: Soft and benign, Non-distended, Tenderness Musculoskeletal: No clubbing, No contractures Integumentary: No rashes, No cyanosis Neurological: Normal speech Laboratory Data (last 24 hrs) 06/11/20 18:50: Magnesium 1.6 L 06/11/20 18:50: PT 11.4, INR 0.97, APTT 26.3 06/11/20 18:50: WBC 7.2, Hgb 11.4 L, Hct 34.5 L, Plt Count 215 06/11/20 18:50: Sodium 133 L, Potassium 4.0, BUN 35 H, Creatinine 2.55 H, Glucose 160 H, Total Bilirubin 0.6, AST 25, ALT 15, Alkaline Phosphatase 59, Amylase 54, Lipase 169 Imagings Data: EXAM DESCRIPTION: CT - Abdomen Pelvis Wo Contrast - 06/11/2020 7:58 pm CLINICAL HISTORY: Abdominal pain. ABD PAIN COMPARISON: CT ABD PELVIS W CONTRAST dated 05/02/2013 TECHNIQUE: CT imaging of the abdomen and pelvis was performed without contrast. Solid organ and vascular assessment is limited due to lack of IV contrast. All CT scans are performed using dose optimization technique as appropriate and may include automated exposure control or mA/KV adjustment according to patient size. FINDINGS: The lower lung guaman are clear. The liver, spleen, pancreas, adrenal glands are within normal limits for a limited non-contrast examination.Small bilateral renal calculi are seen without hydronephrosis. Significant distention of small bowel loops identified with mild free fluid in the abdomen pelvis, compatible with moderate mechanical small-bowel obstruction. A discrete point of transition is difficult to ascertain. No pneumoperitoneum. Within the right aspect of the small bowel mesentery a 2 cm soft tissue lesion is noted which is of unclear etiology but may represent an enlarged lymph node or a small mesenteric mass. The appendix is normal. The osseous structures are within normal limits. IMPRESSION: Moderate grade mechanical small bowel obstruction is seen with mild free fluid in the abdomen and pelvis. 2 cm soft tissue lesion is seen in the right aspect of the small bowel mesentery may represent a mesenteric lymph node or small mesenteric mass. Bilateral nephrolithiasis without hydronephrosis. A limited non-contrast examination was performed as detailed. EXAM DESCRIPTION: RAD - Chest Single View - 06/11/2020 7:57 pm CLINICAL HISTORY: code sepsis Chest pain. COMPARISON: Chest Pa And Lat (2 Views) dated 11/01/2019; Chest Pa And Lat (2 Views) dated 10/03/2019; CHEST SINGLE VIEW dated 01/02/2012; CHEST SINGLE VIEW dated 11/10/2011 FINDINGS: Portable technique limits examination quality. The lungs are grossly clear. The heart is normal in size. No displaced fractures. IMPRESSION: No acute intrathoracic process suspected. EXAM DESCRIPTION: RAD - Small Bowel Series - 06/15/2020 5:21 pm CLINICAL HISTORY: Abdominal pain/ COMPARISON: June 11, 2020 cat scan FINDINGS: Contrast enters the colon by approximately 12 hours. Moderate dilatation of jejunum and portions of ileum. IMPRESSION: Patient has a very high-grade small-bowel obstruction . Conclusions/Impression: A/ ILYA likely due to hypovolemia Hyponatremia Hypokalemia Hypocalcemia Hypomagnesemia HTN DM II Anemia in chronic illness SBO sp surgery P/ Continue current POC and Medications Continue TPN to maintain nutrition. Replete lytes prn. NPO PRBC as ordered. Follow up with surgery. No NSAIDs AM labs. Daily weight
[2020-06-23] MEDS: PIPER/TAZO/NS 3.375gm 3.375 GM/100 ML BAG IVPB SCH ×3 (05:01→21:48)
[2020-06-23] MEDS: INSULIN -REGULAR HUMAN 50 UNIT/0.5 ML ML SQ SCH ×4 (05:02→18:00)
[2020-06-23 06:33] LABS: Potassium 3.8 mmol/L (3.5-5.1)
[2020-06-23 07:25] LABS: Absolute Lymphocytes (CBC) 0.8 K/uL (0.7-4.9); Basophils % 0.4 % (0-1.3); Hematocrit 24.1 % (36.0-45.0); Lymphocytes % 5.9 % (15.3-44.8); MPV 9.5 fL (7.6-11.3); RBC Red Blood Cell Count 2.62 M/uL (3.86-4.86)
[2020-06-23] MEDS ORDERED: POTASSIUM 25 MEQ EFFERV TAB PO ONE (09:00)
[2020-06-23] MEDS: CIPROFLOXACIN 400mg IV 400 MG/200 ML BAG IV SCH ×2 (09:04→20:16)
--- NOTE | 2020-06-23 14:56 | P.PN ---
Subjective Date of Service: 06/23/20 Primary Care Provider: Dr Cordero Chief Complaint: Small-bowel obstruction Subjective: Improving, Doing well Physical Examination - Vital Signs Temperature: 97.3 F Blood Pressure: 112/54 Pulse: 76 Respirations: 16 Pulse Ox (%): 100 - Physical Exam General: Alert, Cooperative HEENT: Atraumatic Neck: Supple Respiratory: Clear to auscultation bilaterally Cardiovascular: Normal pulses, Regular rate/rhythm Gastrointestinal: Other (colostomy in place. ) Neurological: Normal speech, Normal tone, Normal affect - Studies Medications List Reviewed: Yes Assessment & Plan Discharge Plan: Home Plan to discharge in: Greater than 2 days Physician Review Additional Text: Assessment Nausea, vomiting and abdominal pain secondary to moderate mechanical small bowel obstruction with 2 cm soft tissue lesion in the right aspect of the small-bowel likely mesenteric lymph node verses mass with history of colon cancer status post exploratory laparotomy, small-bowel resection with anastomosis, excisional biopsy of mesenteric mass and lysis of adhesions Acute chronic kidney disease stage 2 Hypertension Anemia likely of chronic disease Hypothyroidism Plan Nausea, vomiting and abdominal pain secondary to moderate mechanical small bowel obstruction with 2 cm soft tissue lesion in the right aspect of the small-bowel likely mesenteric lymph node verses mass with history of colon cancer status post exploratory laparotomy, small-bowel resection with anastomosis, excisional biopsy of mesenteric mass and lysis of adhesions: Continue with PPN, this is to be weaned off once patient able to take good oral intake. Patient able to take clear liquids at this time. Await to see if surgery plans to advance diet. Continue IV antibiotic therapy. White count improved. Continue DVT prophylaxis. Encourage ambulation. Will order physical therapy. Will provide incentive spirometer. Awaiting biopsy report. Will discuss further with surgery and nephrology. Acute chronic kidney disease stage 2: Continue IV fluid hydration. Will provide bolus this morning. Continue to hold lisinopril. Continue with Nephrology recommendations Hypertension: Discontinue lisinopril. Will monitor this closely. Anemia likely of chronic disease: Will monitor this closely. Continue monitor closely. Maintain hemoglobin above 8.0. Hypothyroidism: Restart medication Time Spent Managing Pts Care (In Minutes): 55
[2020-06-23] MEDS: AA 4.25%/D10W/ELECTROLYTES 2,000 ML, Lipids 20% 250 ML with MULTIVITAMINS INJ 10 ML IV SCH ×3 (16:59)
--- NOTE | 2020-06-23 19:54 | PN ---
Date of Progress Note: 06/23/2020 Subjective: The patient is seen at the bedside. No overnight events reported. The patient continue s on TPN. No fevers, chills, chest pain, shortness of breath, nausea, vomiting, or diarrhea noted. Objective: Vital Signs: Blood pressure 112/54, pulse 76, temperature 97.3. Input and output are 26 20 in, 1550 out. General: No acute distress. Heart: Regular rate and rhythm. No murmurs, rubs, or gallops. Lungs: Clear to auscultation bilaterally. Abdomen: Soft, nontender, nondistended. Mild surgical site pain, but no peritoneal signs. Extremities: With trace edema. Laboratory Data: Hemoglobin 8, hematocrit 24.1. Serum chemistry; sodium 143, potassium 3.8, chlorid e 109, CO2 of 29, BUN 15, creatinine 1.02, glucose 127, and calcium of 8. Current Medications: Reviewed. She received 1 dose of potassium today. Impression: 1.Acute kidney injury, improved. 2.Electrolyte imbalance. 3.Small bowel obstruction, status post surgical correction. 4.Hypertension. 5.Diabetes. 6.Anemia. Plan: The patient's renal function is stable. Avoid all NSAIDs. Avoid contrast. Continue to monit or lytes daily. I have included a phosphorus level in tomorrow's labs. Continue to monitor input and output. Surgical followup. We w ill continue to follow. /JASON Voice ID: [id number] Report ID: [id number]
[2020-06-23] MEDS: ATORVASTATIN 10 MG TAB PO SCH (20:16)
[2020-06-24] MEDS: PIPER/TAZO/NS 3.375gm 3.375 GM/100 ML BAG IVPB SCH ×3 (04:12→21:42)
[2020-06-24] MEDS: LEVOTHYROXINE SOD 0.05 MG TABLET PO SCH (05:29)
[2020-06-24] MEDS: INSULIN -REGULAR HUMAN 50 UNIT/0.5 ML ML SQ SCH ×5 (06:00→23:42)
[2020-06-24 06:36] LABS: Phosphorus 2.9 mg/dL (2.5-4.9); Potassium 4.3 mmol/L (3.5-5.1)
[2020-06-24 08:06] LABS: Absolute Lymphocytes (CBC) 0.9 K/uL (0.7-4.9); Basophils % 0.4 % (0-1.3); Hematocrit 25.7 % (36.0-45.0); Lymphocytes % 7.1 % (15.3-44.8); RBC Red Blood Cell Count 2.76 M/uL (3.86-4.86)
[2020-06-24] MEDS: CIPROFLOXACIN 400mg IV 400 MG/200 ML BAG IV SCH ×2 (08:07→21:42)
[2020-06-24] MEDS ORDERED: XALATAN OPTH OPTH SCH (09:00)
--- NOTE | 2020-06-24 10:07 | P.PN ---
Subjective Date of Service: 06/24/20 Primary Care Provider: Dr Cordero Chief Complaint: Small-bowel obstruction Subjective: Improving, Doing well Physical Examination - Vital Signs Temperature: 97.1 F Blood Pressure: 98/41 Pulse: 67 Respirations: 16 Pulse Ox (%): 95 - Physical Exam General: Alert, Cooperative HEENT: Atraumatic Neck: Supple Respiratory: Clear to auscultation bilaterally, Normal air movement Cardiovascular: Normal pulses, Regular rate/rhythm Gastrointestinal: Normal bowel sounds, Soft and benign, Non-distended, Other (Postsurgical changes noted) Neurological: Normal speech, Normal strength at 5/5 x4 extr, Normal tone, Normal affect - Studies Medications List Reviewed: Yes Assessment & Plan Discharge Plan: Other (senior care facility) Plan to discharge in: 48 Hours Physician Review Additional Text: Assessment Nausea, vomiting and abdominal pain secondary to moderate mechanical small bowel obstruction with 2 cm soft tissue lesion in the right aspect of the small-bowel likely mesenteric lymph node verses mass with history of colon cancer status post exploratory laparotomy, small-bowel resection with anastomosis, excisional biopsy of mesenteric mass and lysis of adhesions Acute chronic kidney disease stage 2 Hypertension Anemia likely of chronic disease Hypothyroidism Plan Nausea, vomiting and abdominal pain secondary to moderate mechanical small bowel obstruction with 2 cm soft tissue lesion in the right aspect of the small-bowel likely mesenteric lymph node verses mass with history of colon cancer status post exploratory laparotomy, small-bowel resection with anastomosis, excisional biopsy of mesenteric mass and lysis of adhesions: Continue with PPN and antibiotic therapy. PPN to be weaned off once patient able to take good oral intake. Patient able to take clear liquids at this time. No more diarrhea as per patient. Will discuss with surgery about advancing her diet. Continue physical therapy. Continue incentive spirometer. Discussed with patient and about the possibility of skilled placement. Await physical therapy recommendations. Continue with surgery and nephrology recommendations. Acute chronic kidney disease stage 2: Continue IV nutrition. Continue to hold lisinopril. Continue with Nephrology recommendations Hypertension: Discontinue lisinopril. Will monitor this closely. Anemia likely of chronic disease: Will monitor this closely. Continue monitor closely. Maintain hemoglobin above 8.0. Hypothyroidism: Continue medication Time Spent Managing Pts Care (In Minutes): 55
[2020-06-24 13:25] LABS: C.diff Antigen/Toxin Ag neg : Tox neg (NEG : NEG)
[2020-06-24] MEDS: ATORVASTATIN 10 MG TAB PO SCH (21:39)
[2020-06-24] MEDS: HYDROCODONE/APAP 5/325 MG TAB PO PRN (23:09)
[2020-06-25] MEDS: PIPER/TAZO/NS 3.375gm 3.375 GM/100 ML BAG IVPB SCH ×3 (05:32→20:13)
[2020-06-25] MEDS: LEVOTHYROXINE SOD 0.05 MG TABLET PO SCH (05:33)
[2020-06-25] MEDS: INSULIN -REGULAR HUMAN 50 UNIT/0.5 ML ML SQ SCH ×4 (05:48→18:00)
[2020-06-25 06:00] LABS: Absolute Lymphocytes (CBC) 0.9 K/uL (0.7-4.9); Basophils % 0.5 % (0-1.3); Hematocrit 25.6 % (36.0-45.0); Lymphocytes % 5.9 % (15.3-44.8); MPV 8.8 fL (7.6-11.3); RBC Red Blood Cell Count 2.78 M/uL (3.86-4.86)
[2020-06-25 06:09] LABS: Magnesium 1.9 mg/dL (1.8-2.4); Potassium 4.4 mmol/L (3.5-5.1)
[2020-06-25] MEDS: CIPROFLOXACIN 400mg IV 400 MG/200 ML BAG IV SCH ×2 (08:13→20:13)
[2020-06-25 08:25] LABS: Blood Morphology Comment NOT SEEN (NOT SEEN); Platelet Estimate ADEQ; White Blood Cell Scan OK
[2020-06-25] MEDS: HYDROCODONE/APAP 5/325 MG TAB PO PRN ×2 (11:10→20:20)
--- NOTE | 2020-06-25 12:08 | PN ---
Date of Progress Note: 06/25/2020 Diagnosis: Small bowel obstruction, status post laparotomy. Subjective: Patient is doing well, tolerating diet, passing flatus, having bowel movement. Objective: Chest: Clear. Abdomen: Soft and depressible. Intact surgical site. Extremities: No calf tenderness. Laboratory Data: WBC came down from 18 to 12.3, otherwise seen 15 today. Etiology of that is unknow n at this moment. There is no fever. Assessment: This is 79-year-old patient status bowel obstruction, tolerating diet, now passing flatu s, on soft diet at this moment. Etiology of the WBC count is unknown. Plan: We are going to discuss that with the primary doctor to see if he will work that out. From th e surgical standpoint, the abdomen is benign. Incisions are intact with no infection and she is havi ng good bowel movement. OLY/JASON Voice ID: [id number] Report ID: [id number]
--- NOTE | 2020-06-25 14:22 | P.PN ---
Subjective Date of Service: 06/25/20 Primary Care Provider: Dr Cordero Chief Complaint: Small-bowel obstruction Subjective: Improving Physical Examination - Vital Signs Temperature: 99.2 F Blood Pressure: 127/58 Pulse: 86 Respirations: 18 Pulse Ox (%): 96 - Physical Exam General: Alert, Cooperative HEENT: Atraumatic Neck: Supple Respiratory: Clear to auscultation bilaterally, Normal air movement Cardiovascular: Normal pulses, Regular rate/rhythm Gastrointestinal: Normal bowel sounds, Other (Postsurgical changes noted. No significant abdominal pain noted.) Neurological: Normal speech, Normal strength at 5/5 x4 extr, Normal tone, Normal affect - Studies Medications List Reviewed: Yes Assessment & Plan Discharge Plan: Home (Home health) Plan to discharge in: 24 Hours Physician Review Additional Text: Assessment Nausea, vomiting and abdominal pain secondary to moderate mechanical small bowel obstruction with 2 cm soft tissue lesion in the right aspect of the small-bowel likely mesenteric lymph node verses mass with history of colon cancer status post exploratory laparotomy, small-bowel resection with anastomosis, excisional biopsy of mesenteric mass and lysis of adhesions Acute chronic kidney disease stage 2 Hypertension Anemia likely of chronic disease Hypothyroidism Plan Nausea, vomiting and abdominal pain secondary to moderate mechanical small bowel obstruction with 2 cm soft tissue lesion in the right aspect of the small-bowel likely mesenteric lymph node verses mass with history of colon cancer status post exploratory laparotomy, small-bowel resection with anastomosis, excisional biopsy of mesenteric mass and lysis of adhesions: Patient now off PPN. Continue IV antibiotic therapy. Will discuss further with surgery on when this can be transition to oral. Continue incentive spirometer. Continue physical therapy. Will set up home health and physical therapy as the patient wants to go home at discharge. Case discussed with nephrology. Anticipate improvement over the next 24-48 hr. Acute chronic kidney disease stage 2: Renal function improved. Hypertension: Patient currently off lisinopril. Will monitor this closely off medication. If blood pressure continues to elevate will consider adding beta edson. Will monitor this closely. Anemia likely of chronic disease: Will monitor this closely. Continue monitor closely. Maintain hemoglobin above 8.0. Hypothyroidism: Continue medication Time Spent Managing Pts Care (In Minutes): 55
[2020-06-25] MEDS: ENSURE HIGH PROTEIN 237 ML CAN PO SCH (20:14)
[2020-06-25] MEDS: ATORVASTATIN 10 MG TAB PO SCH (20:14)
--- NOTE | 2020-06-25 20:16 | P.PN ---
Date of Service: 06/25/20 Vital Signs Temp Pulse Resp BP Pulse Ox 98.3 F 75 18 112/44 L 96 06/25/20 16:00 06/25/20 16:00 06/25/20 16:00 06/25/20 16:00 06/25/20 16:00 Medications Acetaminophen (Tylenol Suppository) 650 mg [place] Q6H PRN PRN Reason: TEMP > 101' F Stop: 07/11/20 22:53 Last Admin: 06/19/20 20:31 Dose: 650 mg Documented by: Hydrocodone Bitart/Acetaminophen ([place] 5/325) 1 tab PO Q4H PRN PRN Reason: Pain scale 5-7 (Moderate) Stop: 07/24/20 22:30 Last Admin: 06/25/20 11:10 Dose: 1 tab Documented by: Atorvastatin Calcium (Lipitor) 10 mg PO BEDTIME [facility] Stop: 07/23/20 21:01 Last Admin: 06/24/20 21:39 Dose: 10 mg Documented by: Dextrose (Dextrose 50% Syringe/Vial) 12.5 gm IV PRN PRN PRN Reason: HYPOGLYCEMIA Stop: 07/19/20 05:53 Last Admin: 06/19/20 12:08 Dose: 12.5 gm Documented by: Glucagon (Glucagen) 1 mg IM 1X PRN PRN Reason: HYPOGLYCEMIA Stop: 07/19/20 05:53 Home Med (Home Med) 1 ea OPTH DAILY [facility] Stop: 07/24/20 09:01 Piperacillin Sod/Tazobactam Sod (Zosyn 3.375 Gm/100 Ml Ns Ivpb) 3.375 gm in 100 mls @ 25 mls/hr IVPB Q8H [facility]; Protocol Stop: 07/21/20 13:01 Last Admin: 06/25/20 12:25 Dose: 100 mls Documented by: Ciprofloxacin/Dextrose (Cipro 400 Mg/200 Ml Ivpb (Premix)) 400 mg in 200 mls @ 200 mls/hr IV Q12HR [facility]; Protocol Stop: 07/21/20 21:01 Last Admin: 06/25/20 08:13 Dose: 200 mls Documented by: Sodium Chloride (Sodium Chloride) 250 mls @ 0 mls/hr IV .Q0M [facility] Stop: 07/22/20 11:01 Insulin Human Regular (Novolin -R) 0 unit SQ Q6HR [facility]; Protocol Stop: 07/19/20 06:01 Last Admin: 06/25/20 18:00 Dose: Not Given Documented by: Levothyroxine Sodium (Synthroid) 0.05 mg PO DAILYAC [facility] Stop: 07/24/20 06:31 Last Admin: 06/25/20 05:33 Dose: 0.05 mg Documented by: Nutritional Formula (Ensure High Protein) 237 ml PO BID [facility] Stop: 07/25/20 21:01 Ondansetron HCl (Zofran) 4 mg IV Q6HP PRN PRN Reason: NAUSEA / VOMITING Stop: 07/11/20 22:53 Last Admin: 06/22/20 00:07 Dose: 4 mg Documented by: Phenol (Phenaseptic [place]) 2 appl MM Q4H PRN PRN Reason: SORE THROAT Stop: 07/12/20 23:05 Last Admin: 06/16/20 14:42 Dose: 2 appl Documented by: Sodium Chloride (Normal Saline Flush) 10 ml IV BID [facility] Stop: 07/11/20 22:53 Last Admin: 06/25/20 08:13 Dose: 10 ml Documented by: Microbiology Results 06/11/20 18:50 Blood - Blood Aerobic Blood Culture - Final No growth in 5 days. 06/11/20 18:50 Blood - Blood Anaerobic Blood Culture - Final No growth in 5 days. 06/11/20 18:50 Blood - Blood Aerobic Blood Culture - Final No growth in 5 days. 06/11/20 18:50 Blood - Blood Anaerobic Blood Culture - Final No growth in 5 days. Assessment/ Plan: Nephrology Feeling better. Slowly improving diet but does not like the food. CPS stable without CP or SOB. Good urine output. No acute events overnight. Vitals, medications, blood work and imaging reviewed in the chart. General: Oriented x3, Cooperative HEENT: Atraumatic Respiratory: Clear to auscultation bilaterally Cardiovascular: No edema, Regular rate/rhythm Gastrointestinal: Soft and benign, Non-distended, Tenderness Musculoskeletal: No clubbing, No contractures Integumentary: No rashes, No cyanosis Neurological: Normal speech Laboratory Data (last 24 hrs) 06/11/20 18:50: Magnesium 1.6 L 06/11/20 18:50: PT 11.4, INR 0.97, APTT 26.3 08/17/20 18:50: WBC 7.2, Hgb 11.4 L, Hct 34.5 L, Plt Count 215 06/11/20 18:50: Sodium 133 L, Potassium 4.0, BUN 35 H, Creatinine 2.55 H, Glucose 160 H, Total Bilirubin 0.6, AST 25, ALT 15, Alkaline Phosphatase 59, Amylase 54, Lipase 169 Imagings Data: EXAM DESCRIPTION: CT - Abdomen Pelvis Wo Contrast - 06/11/2020 7:58 pm CLINICAL HISTORY: Abdominal pain. ABD PAIN COMPARISON: CT ABD PELVIS W CONTRAST dated 05/02/2013 TECHNIQUE: CT imaging of the abdomen and pelvis was performed without contrast. Solid organ and vascular assessment is limited due to lack of IV contrast. All CT scans are performed using dose optimization technique as appropriate and may include automated exposure control or mA/KV adjustment according to patient size. FINDINGS: The lower lung guaman are clear. The liver, spleen, pancreas, adrenal glands are within normal limits for a limited non-contrast examination.Small bilateral renal calculi are seen without hydronephrosis. Significant distention of small bowel loops identified with mild free fluid in the abdomen pelvis, compatible with moderate mechanical small-bowel obstruction. A discrete point of transition is difficult to ascertain. No pneumoperitoneum. Within the right aspect of the small bowel mesentery a 2 cm soft tissue lesion is noted which is of unclear etiology but may represent an enlarged lymph node or a small mesenteric mass. The appendix is normal. The osseous structures are within normal limits. IMPRESSION: Moderate grade mechanical small bowel obstruction is seen with mild free fluid in the abdomen and pelvis. 2 cm soft tissue lesion is seen in the right aspect of the small bowel mesentery may represent a mesenteric lymph node or small mesenteric mass. Bilateral nephrolithiasis without hydronephrosis. A limited non-contrast examination was performed as detailed. EXAM DESCRIPTION: RAD - Chest Single View - 06/11/2020 7:57 pm CLINICAL HISTORY: code sepsis Chest pain. COMPARISON: Chest Pa And Lat (2 Views) dated 11/01/2019; Chest Pa And Lat (2 Views) dated 10/03/2019; CHEST SINGLE VIEW dated 01/02/2012; CHEST SINGLE VIEW dated 11/10/2011 FINDINGS: Portable technique limits examination quality. The lungs are grossly clear. The heart is normal in size. No displaced fractures . IMPRESSION: No acute intrathoracic process suspected. EXAM DESCRIPTION: RAD - Small Bowel Series - 06/15/2020 5:21 pm CLINICAL HISTORY: Abdominal pain/ COMPARISON: June 11, 2020 cat scan FINDINGS: Contrast enters the colon by approximately 12 hours. Moderate dilatation of jejunum and portions of ileum. IMPRESSION: Patient has a very high-grade small-bowel obstruction . Conclusions/Impression: A/ ILYA likely due to hypovolemia Hyponatremia Hypokalemia Hypocalcemia Hypomagnesemia HTN DM II Anemia in chronic illness SBO sp surgery P/ Continue current POC and Medications Replete lytes prn. Encourage nutrition. PRBC as needed. Follow up with surgery. No NSAIDs AM labs. Daily weight
[2020-06-26] MEDS: PIPER/TAZO/NS 3.375gm 3.375 GM/100 ML BAG IVPB SCH (04:54)
[2020-06-26] MEDS: LEVOTHYROXINE SOD 0.05 MG TABLET PO SCH (04:55)
[2020-06-26 06:19] LABS: Absolute Lymphocytes (CBC) 0.9 K/uL (0.7-4.9); Basophils % 0.4 % (0-1.3); Hematocrit 24.8 % (36.0-45.0); Lymphocytes % 6.9 % (15.3-44.8); MPV 9.1 fL (7.6-11.3)
[2020-06-26] MEDS: INSULIN -REGULAR HUMAN 50 UNIT/0.5 ML ML SQ SCH ×5 (07:30→21:00)
[2020-06-26] MEDS: CIPROFLOXACIN 400mg IV 400 MG/200 ML BAG IV SCH (08:06)
[2020-06-26] MEDS: ENSURE HIGH PROTEIN 237 ML CAN PO SCH ×2 (08:14→21:00)
[2020-06-26] MEDS: HYDROCODONE/APAP 5/325 MG TAB PO PRN (10:21)
--- NOTE | 2020-06-26 12:40 | P.PN ---
Subjective Date of Service: 06/26/20 Primary Care Provider: Dr Cordero Chief Complaint: Small-bowel obstruction Subjective: Improving, Doing well Physical Examination - Vital Signs Temperature: 98.1 F Blood Pressure: 111/54 Pulse: 80 Respirations: 18 Pulse Ox (%): 96 - Physical Exam General: Alert, In no apparent distress, Oriented x3, Cooperative HEENT: Atraumatic Neck: Supple Respiratory: Clear to auscultation bilaterally, Normal air movement Cardiovascular: Normal pulses, Regular rate/rhythm Gastrointestinal: Other (Postop changes noted.) Neurological: Normal speech, Normal strength at 5/5 x4 extr, Normal tone, Normal affect - Studies Medications List Reviewed: Yes Assessment & Plan Discharge Plan: Home Plan to discharge in: 24 Hours Physician Review Additional Text: Assessment Nausea, vomiting and abdominal pain secondary to moderate mechanical small bowel obstruction with 2 cm soft tissue lesion in the right aspect of the small-bowel likely mesenteric lymph node verses mass with history of colon cancer status post exploratory laparotomy, small-bowel resection with anastomosis, excisional biopsy of mesenteric mass and lysis of adhesions Acute chronic kidney disease stage 2 Hypertension Anemia likely of chronic disease Hypothyroidism Plan Nausea, vomiting and abdominal pain secondary to moderate mechanical small bowel obstruction with 2 cm soft tissue lesion in the right aspect of the small-bowel likely mesenteric lymph node verses mass with history of colon cancer status post exploratory laparotomy, small-bowel resection with anastomosis, excisional biopsy of mesenteric mass and lysis of adhesions: Continue oral intake. Spoke with surgery. Will discontinue IV antibiotic therapy at this time. Will monitor Overnite. If white count improved anticipate discharge tomorrow without antibiotic therapy. Will review pathology report. Patient does not desire home health or physical therapy at discharge. Renal function improved. Will check iron and B12 studies to evaluate for iron and B12 deficiency. Will start lactobacillus. Patient may require Imodium if with increase diarrhea. A nticipate improvement over the next 24 hr with possible discharge. Acute chronic kidney disease stage 2: Renal function improved. Hypertension: Patient currently off lisinopril. Will monitor this closely off medication. If blood pressure continues to elevate will consider adding beta edson. Will monitor this closely. Anemia likely of chronic disease: Will monitor this closely. Continue monitor closely. Maintain hemoglobin above 8.0. Will check iron and B12 studies. Patient may require supplementation. Hypothyroidism: Continue medication Time Spent Managing Pts Care (In Minutes): 55
[2020-06-26] MEDS: LACTOBACILLUS/ACIDOPHILUS TAB PO SCH ×2 (13:59→21:04)
[2020-06-26 16:58] LABS: Ferritin 594.8 ng/mL (8-388)
[2020-06-26] MEDS ORDERED: ACETAMINOPHEN 500 MG TAB PO PRN (18:50)
[2020-06-26] MEDS: ATORVASTATIN 10 MG TAB PO SCH (21:04)
--- NOTE | 2020-06-26 21:30 | P.PN ---
Date of Service: 06/26/20 Vital Signs Temp Pulse Resp BP Pulse Ox 99 F 79 18 124/59 L 98 06/26/20 20:07 06/26/20 16:00 06/26/20 16:00 06/26/20 16:00 06/26/20 16:00 Medications Acetaminophen (Tylenol -Extra Strength) 500 mg PO Q4H PRN PRN Reason: fever Stop: 07/26/20 18:51 Last Admin: 06/26/20 19:07 Dose: 500 mg Documented by: Hydrocodone Bitart/Acetaminophen ([place] 5/325) 1 tab PO Q4H PRN PRN Reason: Pain scale 5-7 (Moderate) Stop: 07/24/20 22:30 Last Admin: 06/26/20 10:21 Dose: 1 tab Documented by: Atorvastatin Calcium (Lipitor) 10 mg PO BEDTIME [facility] Stop: 07/23/20 21:01 Last Admin: 06/26/20 21:04 Dose: 10 mg Documented by: Dextrose (Dextrose 50% Syringe/Vial) 12.5 gm IV PRN PRN PRN Reason: HYPOGLYCEMIA Stop: 07/19/20 05:53 Last Admin: 06/19/20 12:08 Dose: 12.5 gm Documented by: Glucagon (Glucagen) 1 mg IM 1X PRN PRN Reason: HYPOGLYCEMIA Stop: 07/19/20 05:53 Home Med (Home Med) 1 ea OPTH DAILY [facility] Stop: 07/24/20 09:01 Sodium Chloride (Sodium Chloride) 250 mls @ 0 mls/hr IV .Q0M [facility] Stop: 07/22/20 11:01 Insulin Human Regular (Novolin -R) 0 unit SQ ACHS [facility]; Protocol Stop: 07/26/20 07:31 Last Admin: 06/26/20 21:00 Dose: Not Given Documented by: Lactobacillus Acidoph/Bulgaricus (Lactinex) 1 tab PO TID [facility] Stop: 07/26/20 14:01 Last Admin: 06/26/20 21:04 Dose: 1 tab Documented by: Levothyroxine Sodium (Synthroid) 0.05 mg PO DAILYAC [facility] Stop: 07/24/20 06:31 Last Admin: 06/26/20 04:55 Dose: 0.05 mg Documented by: Nutritional Formula (Ensure High Protein) 237 ml PO BID [facility] Stop: 07/25/20 21:01 Last Admin: 06/26/20 21:00 Dose: Not Given Documented by: Ondansetron HCl (Zofran) 4 mg IV Q6HP PRN PRN Reason: NAUSEA / VOMITING Stop: 07/11/20 22:53 Last Admin: 06/22/20 00:07 Dose: 4 mg Documented by: Phenol (Phenaseptic [place]) 2 appl MM Q4H PRN PRN Reason: SORE THROAT Stop: 07/12/20 23:05 Last Admin: 06/16/20 14:42 Dose: 2 appl Documented by: Sodium Chloride (Normal Saline Flush) 10 ml IV BID [facility] Stop: 07/11/20 22:53 Last Admin: 06/26/20 21:04 Dose: 10 ml Documented by: Microbiology Results 06/11/20 18:50 Blood - Blood Aerobic Blood Culture - Final No growth in 5 days. 06/11/20 18:50 Blood - Blood Anaerobic Blood Culture - Final No growth in 5 days. 06/11/20 18:50 Blood - Blood Aerobic Blood Culture - Final No growth in 5 days. 06/11/20 18:50 Blood - Blood Anaerobic Blood Culture - Final No growth in 5 days. Assessment/ Plan: Nephrology Feeling better. Slowly improving diet. CPS stable without CP or SOB. Good urine output. No acute events overnight. Vitals, medications, blood work and imaging reviewed in the chart. General: Oriented x3, Cooperative HEENT: Atraumatic Respiratory: Clear to auscultation bilaterally Cardiovascular: No edema, Regular rate/rhythm Gastrointestinal: Soft and benign, Non-distended, Tenderness Musculoskeletal: No clubbing, No contractures. Tremor. Integumentary: No rashes, No cyanosis Neurological: Normal speech Laboratory Data (last 24 hrs) 06/11/20 18:50: Magnesium 1.6 L 06/11/20 18:50: PT 11.4, INR 0.97, APTT 26.3 06/11/20 18:50: WBC 7.2, Hgb 11.4 L, Hct 34.5 L, Plt Count 215 06/11/20 18:50: Sodium 133 L, Potassium 4.0, BUN 35 H, Creatinine 2.55 H, Glucose 160 H, Total Bilirubin 0.6, AST 25, ALT 15, Alkaline Phosphatase 59, Amylase 54, Lipase 169 Imagings Data: EXAM DESCRIPTION: CT - Abdomen Pelvis Wo Contrast - 06/11/2020 7:58 pm CLINICAL HISTORY: Abdominal pain. ABD PAIN COMPARISON: CT ABD PELVIS W CONTRAST dated 05/02/2013 TECHNIQUE: CT imaging of the abdomen and pelvis was performed without contrast. Solid organ and vascular assessment is limited due to lack of IV contrast. All CT scans are performed using dose optimization technique as appropriate and may include automated exposure control or mA/KV adjustment according to patient size. FINDINGS: The lower lung guaman are clear. The liver, spleen, pancreas, adrenal glands are within normal limits for a limited non-contrast examination.Small bilateral renal calculi are seen without hydronephrosis. Significant distention of small bowel loops identified with mild free fluid in the abdomen pelvis, compatible with moderate mechanical small-bowel obstruction. A discrete point of transition is difficult to ascertain. No pneumoperitoneum. Within the right aspect of the small bowel mesentery a 2 cm soft tissue lesion is noted which is of unclear etiology but may represent an enlarged lymph node or a small mesenteric mass. The appendix is normal. The osseous structures are within normal limits. IMPRESSION: Moderate grade mechanical small bowel obstruction is seen with mild free fluid in the abdomen and pelvis. 2 cm soft tissue lesion is seen in the right aspect of the small bowel mesentery may represent a mesenteric lymph node or small mesenteric mass. Bilateral nephrolithiasis without hydronephrosis. A limited non-contrast examination was performed as detailed. EXAM DESCRIPTION: RAD - Chest Single View - 06/11/2020 7:57 pm CLINICAL HISTORY: code sepsis Chest pain. COMPARISON: Chest Pa And Lat (2 Views) dated 11/01/2019; Chest Pa And Lat (2 Views) dated 10/03/2019; CHEST SINGLE VIEW dated 01/02/2012; CHEST SINGLE VIEW dated 11/10/2011 FINDINGS: Portable technique limits examination quality. The lungs are grossly clear. The heart is normal in size. No displaced fractures. IMPRESSION: No acute intrathoracic process suspected. EXAM DESCRIPTION: RAD - Small Bowel Series - 06/15/2020 5:21 pm CLINICAL HISTORY: Abdominal pain/ COMPARISON: June 11, 2020 cat scan FINDINGS: Contrast enters the colon by approximately 12 hours. Moderate dilatation of jejunum and portions of ileum. IMPRESSION: Patient has a very high-grade small-bowel obstruction . Conclusions/Impression: A/ ILYA likely due to hypovolemia Hyponatremia Hypokalemia Hypocalcemia Hypomagnesemia HTN DM II Anemia in chronic illness SBO sp surgery P/ Continue current POC and Medications Replete lytes prn. Encourage nutrition. PRBC as needed. Follow up with surgery. No NSAIDs AM labs. Daily weight
[2020-06-27] MEDS: LEVOTHYROXINE SOD 0.05 MG TABLET PO SCH (05:55)
[2020-06-27 06:19] LABS: Absolute Lymphocytes (CBC) 0.9 K/uL (0.7-4.9); Basophils % 0.5 % (0-1.3); Hematocrit 25.8 % (36.0-45.0); Lymphocytes % 5.5 % (15.3-44.8); MPV 9.6 fL (7.6-11.3); RBC Red Blood Cell Count 2.83 M/uL (3.86-4.86)
[2020-06-27 06:35] LABS: Magnesium 2.1 mg/dL (1.8-2.4); Potassium 4.1 mmol/L (3.5-5.1)
[2020-06-27] MEDS: INSULIN -REGULAR HUMAN 50 UNIT/0.5 ML ML SQ SCH ×4 (07:30→21:00)
[2020-06-27 08:29] LABS: Blood Morphology Comment NOT SEEN (NOT SEEN); Platelet Estimate ADEQ; White Blood Cell Scan OK
[2020-06-27] MEDS: METOPROLOL TAR 25 MG TAB PO SCH ×2 (08:48→17:43)
[2020-06-27] MEDS: ENSURE HIGH PROTEIN 237 ML CAN PO SCH ×2 (08:48→21:01)
[2020-06-27] MEDS: LACTOBACILLUS/ACIDOPHILUS TAB PO SCH ×3 (08:48→21:00)
[2020-06-27] MEDS: PIPER/TAZO/NS 3.375gm 3.375 GM/100 ML BAG IVPB SCH ×2 (09:00→17:44)
--- NOTE | 2020-06-27 10:57 | RAD REPORT ---
EXAM DESCRIPTION: CT - Abdomen Pelvis Wo Contrast - 06/27/2020 10:30 am CLINICAL HISTORY: follow up surgery, rule out infection/abscess COMPARISON: Abdomen Pelvis Wo Contrast dated 06/11/2020; Abdomen Single View dated 06/21/2020; Abdom en 1 View (KUB) dated 06/20/2020; Small Bowel Series dated 06/15/2020; Abdomen W Erect dated 06/13/2020 TECHNIQUE: Axial [address] imaging of the abdomen and pelvis was performed without IV contrast. No IV contrast was given because of allergy, abnormal renal function, patient refusal or physician re quest. Oral contrast was given. All CT scans are performed using dose optimization technique as appropriate and may include automated exposure control or mA/KV adjustment according to patient size. FINDINGS: Small bilateral pleural effusions in each posterior gutter with associated atelectasis. The liver, spleen and pancreas show no suspicious findings on non-contrast imaging. Gallbladder is co ntracted tightly. No biliary tree dilatation. No hydronephrosis or suspicious renal mass. Nonobstructing calculi are present. No perinephric strand ing. Punctate air within the urinary bladder is probably from a catheterization. Bladder is mostly co ntracted. No significant adrenal finding. Isodense renal masses and pyelonephritis cannot be excluded in the absence of IV contrast. Small hiatal hernia is present. No gastric dilatation or wall thickening. Contrast from various diagn ostic studies present within the colon down to the distal rectum. Colon is tortuous and redundant. No colon wall thickening or mass. A few mildly prominent small bowel loops are present. Small bowel charisma gical changes are noted. Small bowel wall edema is present through most of the loops of the ileum. Th is is not unexpected given the recent surgery. No extravasation of oral contrast. No abscess is present. No free air. Minimal free fluid in the dep endent portion of the pelvis well within normal limits for the recent surgery. No hernia, mass or bulky lymphadenopathy. Midline skin carlito noted. No suspicious bony findings. IMPRESSION: Small bowel postsurgical changes are present. Wall thickening of multiple nondilated sma ll bowel loops noted, not unexpected given the recent surgery. No abscess, free air or worrisome free fluid collection. Full assessment is limited is the absence of IV contrast.
[2020-06-27] MEDS: LOPERAMIDE HCL 2 MG CAPSULE PO PRN ×2 (12:37→18:44)
[2020-06-27] MEDS ORDERED: HYDROCORTISONE 1 % OINT 30GM TOP PRN (18:16)
--- NOTE | 2020-06-27 18:19 | P.PN ---
Subjective Date of Service: 06/27/20 Primary Care Provider: Dr Cordero Chief Complaint: Small-bowel obstruction Subjective: Improving, Other (Overall improved. Still with some diarrhea today.) Physical Examination - Vital Signs Temperature: 98.0 F Blood Pressure: 95/45 Pulse: 64 Respirations: 18 Pulse Ox (%): 98 - Physical Exam General: Alert HEENT: Atraumatic Neck: Supple Respiratory: Clear to auscultation bilaterally, Normal air movement Cardiovascular: Normal pulses, Regular rate/rhythm Gastrointestinal: Normal bowel sounds, Soft and benign, Non-distended, No guarding Neurological: Normal speech, Normal strength at 5/5 x4 extr, Normal tone, Normal affect - Studies Medications List Reviewed: Yes Assessment & Plan Discharge Plan: Home Plan to discharge in: 24 Hours Physician Review Additional Text: Assessment Nausea, vomiting and abdominal pain secondary to moderate mechanical small bowel obstruction with 2 cm soft tissue lesion in the right aspect of the small-bowel likely mesenteric lymph node verses mass with history of colon cancer status post exploratory laparotomy, small-bowel resection with anastomosis, excisional biopsy of mesenteric mass and lysis of adhesions Acute chronic kidney disease stage 2 Hypertension Anemia likely of chronic disease Hypothyroidism Plan Nausea, vomiting and abdominal pain secondary to moderate mechanical small bowel obstruction with 2 cm soft tissue lesion in the right aspect of the small-bowel likely mesenteric lymph node verses mass with history of colon cancer status po st exploratory laparotomy, small-bowel resection with anastomosis, excisional biopsy of mesenteric mass and lysis of adhesions: Continue oral intake. Repeat CT scan shows no abscess. White count elevated today. Repeat blood cultures. Monitor temperature. Will discuss further with surgery about the possibility of possible discharge tomorrow on antibiotic therapy. Patient still with diarrhea. Will provide Imodium. Will provide medication for hemorrhoids. Acute chronic kidney disease stage 2: Renal function improved. Hypertension: Patient currently off lisinopril. Will monitor this closely off medication. If blood pressure continues to elevate will consider adding beta edson. Will monitor this closely. Anemia likely of chronic disease: Will monitor this closely. Continue monitor closely. Maintain hemoglobin above 8.0. Will check iron and B12 studies. Patient may require supplementation. Hypothyroidism: Continue medication Time Spent Managing Pts Care (In Minutes): 55
[2020-06-27] MEDS: ATORVASTATIN 10 MG TAB PO SCH (21:00)
--- NOTE | 2020-06-27 21:19 | P.PN ---
Date of Service: 06/27/20 Vital Signs Temp Pulse Resp BP Pulse Ox 98.5 F 73 16 117/56 L 98 06/27/20 20:00 06/27/20 20:00 06/27/20 20:00 06/27/20 20:00 06/27/20 20:00 Medications Acetaminophen (Tylenol -Extra Strength) 500 mg PO Q4H PRN PRN Reason: fever Stop: 07/26/20 18:51 Last Admin: 06/26/20 19:07 Dose: 500 mg Documented by: Hydrocodone Bitart/Acetaminophen ([place] 5/325) 1 tab PO Q4H PRN PRN Reason: Pain scale 5-7 (Moderate) Stop: 07/24/20 22:30 Last Admin: 06/26/20 10:21 Dose: 1 tab Documented by: Atorvastatin Calcium (Lipitor) 10 mg PO BEDTIME [facility] Stop: 07/23/20 21:01 Last Admin: 06/27/20 21:00 Dose: 10 mg Documented by: Dextrose (Dextrose 50% Syringe/Vial) 12.5 gm IV PRN PRN PRN Reason: HYPOGLYCEMIA Stop: 07/19/20 05:53 Last Admin: 06/19/20 12:08 Dose: 12.5 gm Documented by: Glucagon (Glucagen) 1 mg IM 1X PRN PRN Reason: HYPOGLYCEMIA Stop: 07/19/20 05:53 Home Med (Home Med) 1 ea OPTH DAILY [facility] Stop: 07/24/20 09:01 Hydrocortisone Acetate (Cortizone 1% Ointment) 1 appl TOP TID PRN PRN Reason: ITCHING Stop: 07/27/20 18:17 Sodium Chloride (Sodium Chloride) 250 mls @ 0 mls/hr IV .Q0M [facility] Stop: 07/22/20 11:01 Piperacillin Sod/Tazobactam Sod (Zosyn 3.375 Gm/100 Ml Ns Ivpb) 3.375 gm in 100 mls @ 100 mls/hr IVPB Q8HR [facility]; Protocol Stop: 07/27/20 09:01 Last Admin: 06/27/20 17:44 Dose: 100 mls Documented by: Insulin Human Regular (Novolin -R) 0 unit SQ ACHS [facility]; Protocol Stop: 07/26/20 07:31 Last Admin: 06/27/20 21:00 Dose: Not Given Documented by: Lactobacillus Acidoph/Bulgaricus (Lactinex) 1 tab PO TID [facility] Stop: 07/26/20 14:01 Last Admin: 06/27/20 21:00 Dose: 1 tab Documented by: Levothyroxine Sodium (Synthroid) 0.05 mg PO DAILYAC [facility] Stop: 07/24/20 06:31 Last Admin: 06/27/20 05:55 Dose: 0.05 mg Documented by: Loperamide HCl (Imodium) 2 mg PO Q4H PRN PRN Reason: DIARRHEA Stop: 07/27/20 11:46 Last Admin: 06/27/20 18:44 Dose: 2 mg Documented by: Metoprolol Tartrate (Lopressor) 25 mg PO BID 6AM 6PM [facility] Stop: 07/27/20 08:31 Last Admin: 06/27/20 17:43 Dose: Not Given Documented by: Nutritional Formula (Ensure High Protein) 237 ml PO BID [facility] Stop: 07/25/20 21:01 Last Admin: 06/27/20 21:01 Dose: Not Given Documented by: Ondansetron HCl (Zofran) 4 mg IV Q6HP PRN PRN Reason: NAUSEA / VOMITING Stop: 07/11/20 22:53 Last Admin: 06/22/20 00:07 Dose: 4 mg Documented by: Phenol (Phenaseptic [place]) 2 appl MM Q4H PRN PRN Reason: SORE THROAT Stop: 07/12/20 23:05 Last Admin: 06/16/20 14:42 Dose: 2 appl Documented by: Sodium Chloride (Normal Saline Flush) 10 ml IV BID [facility] Stop: 07/11/20 22:53 Last Admin: 06/27/20 21:02 Dose: 10 ml Documented by: Microbiology Results 06/11/20 18:50 Blood - Blood Aerobic Blood Culture - Final No growth in 5 days. 06/11/20 18:50 Blood - Blood Anaerobic Blood Culture - Final No growth in 5 days. 06/11/20 18:50 Blood - Blood Aerobic Blood Culture - Final No growth in 5 days. 06/11/20 18:50 Blood - Blood Anaerobic Blood Culture - Final No growth in 5 days. Assessment/ Plan: Nephrology Feeling better. Slowly improving diet. CPS stable without CP or SOB. Good urine output. Fever overnight. Vitals, medications, blood work and imaging reviewed in the chart. General: Oriented x3, Cooperative HEENT: Atraumatic Respiratory: Clear to auscultation bilaterally Cardiovascular: No edema, Regular rate/rhythm Gastrointestinal: Soft and benign, Non-distended, Tenderness Musculoskeletal: No clubbing, No contractures. Tremor. Integumentary: No rashes, No cyanosis Neurological: Normal speech Laboratory Data (last 24 hrs) 06/11/20 18:50: Magnesium 1.6 L 06/11/20 18:50: PT 11.4, INR 0.97, APTT 26.3 06/11/20 18:50: WBC 7.2, Hgb 11.4 L, Hct 34.5 L, Plt Count 215 06/11/20 18:50: Sodium 133 L, Potassium 4.0, BUN 35 H, Creatinine 2.55 H, Glucose 160 H, Total Bilirubin 0.6, AST 25, ALT 15, Alkaline Phosphatase 59, Amylase 54, Lipase 169 Imagings Data: EXAM DESCRIPTION: CT - Abdomen Pelvis Wo Contrast - 06/11/2020 7:58 pm CLINICAL HISTORY: Abdominal pain. ABD PAIN COMPARISON: CT ABD PELVIS W CONTRAST dated 05/02/2013 TECHNIQUE: CT imaging of the abdomen and pelvis was performed without contrast. Solid organ and vascular assessment is limited due to lack of IV contrast. All CT scans are performed using dose optimization technique as appropriate and may include automated exposure control or mA/KV adjustment according to patient size. FINDINGS: The lower lung guaman are clear. The liver, spleen, pancreas, adrenal glands are within normal limits for a limited non-contrast examination.Small bilateral renal calculi are seen without hydronephrosis. Significant distention of small bowel loops identified with mild free fluid in the abdomen pelvis, compatible with moderate mechanical small-bowel obstruction. A discrete point of transition is difficult to ascertain. No pneumoperitoneum. Within the right aspect of the small bowel mesentery a 2 cm soft tissue lesion is noted which is of unclear etiology but may represent an enlarged lymph node or a small mesenteric mass. The appendix is normal. The osseous structures are within normal limits. IMPRESSION: Moderate grade mechanical small bowel obstruction is seen with mild free fluid in the abdomen and pelvis. 2 cm soft tissue lesion is seen in the right aspect of the small bowel mesentery may represent a mesenteric lymph node or small mesenteric mass. Bilateral nephrolithiasis without hydronephrosis. A limited non-contrast examination was performed as detailed. EXAM DESCRIPTION: RAD - Chest Single View - 06/11/2020 7:57 pm CLINICAL HISTORY: code sepsis Chest pain. COMPARISON: Chest Pa And Lat (2 Views) dated 11/01/2019; Chest Pa And Lat (2 Views) dated 10/03/2019; CHEST SINGLE VIEW dated 01/02/2012; CHEST SINGLE VIEW dated 11/10/2011 FINDINGS: Portable technique limits examination quality. The lungs are grossly clear. The heart is normal in size. No displaced fractures. IMPRESSION: No acute intrathoracic process suspected. EXAM DESCRIPTION: RAD - Small Bowel Series - 06/15/2020 5:21 pm CLINICAL HISTORY: Abdominal pain/ COMPARISON: June 11, 2020 cat scan FINDINGS: Contrast enters the colon by approximately 12 hours. Moderate dilatation of jejunum and portions of ileum. IMPRESSION: Patient has a very high-grade small-bowel obstruction . Conclusions/Impression: A/ ILYA likely due to hypovolemia Hyponatremia Hypokalemia Hypocalcemia Hypomagnesemia HTN DM II Anemia in chronic illness SBO sp surgery P/ Continue current POC and Medications Replete lytes prn. Encourage nutrition. PRBC as needed. Follow up with surgery. CT scan ordered for today. No NSAIDs AM labs. Daily weight
[2020-06-28] MEDS: PIPER/TAZO/NS 3.375gm 3.375 GM/100 ML BAG IVPB SCH ×2 (01:12→08:41)
[2020-06-28] MEDS: LOPERAMIDE HCL 2 MG CAPSULE PO PRN ×3 (01:41→17:12)
[2020-06-28 04:02] LABS: Absolute Lymphocytes (CBC) 0.6 K/uL (0.7-4.9); Basophils % 1.4 % (0-1.3); Hematocrit 24.5 % (36.0-45.0); Lymphocytes % 4.6 % (15.3-44.8); MPV 9.6 fL (7.6-11.3); RBC Red Blood Cell Count 2.69 M/uL (3.86-4.86)
[2020-06-28] MEDS: LEVOTHYROXINE SOD 0.05 MG TABLET PO SCH (05:51)
[2020-06-28] MEDS: METOPROLOL TAR 25 MG TAB PO SCH ×2 (05:51→17:11)
[2020-06-28] MEDS: INSULIN -REGULAR HUMAN 50 UNIT/0.5 ML ML SQ SCH ×4 (07:30→21:00)
[2020-06-28] MEDS: LACTOBACILLUS/ACIDOPHILUS TAB PO SCH ×3 (08:39→20:45)
[2020-06-28] MEDS: ENSURE HIGH PROTEIN 237 ML CAN PO SCH ×2 (08:45→20:56)
--- NOTE | 2020-06-28 11:17 | P.PN ---
Subjective Date of Service: 06/28/20 Primary Care Provider: Dr Cordero Chief Complaint: Small-bowel obstruction Subjective: Improving (Patient reports diarrhea improved. No fever. Patient tolerating diet.) Physical Examination - Vital Signs Temperature: 98.4 F Blood Pressure: 102/49 Pulse: 70 Respirations: 18 Pulse Ox (%): 96 - Physical Exam General: Alert, In no apparent distress, Oriented x3, Cooperative HEENT: Atraumatic Neck: Supple Respiratory: Clear to auscultation bilaterally, Normal air movement Cardiovascular: Normal pulses, Regular rate/rhythm Gastrointestinal: Normal bowel sounds, Soft and benign, Non-distended, Other (Postop changes noted. No significant abdominal pain.) Neurological: Normal speech, Normal strength at 5/5 x4 extr, Normal tone, Normal affect - Studies Medications List Reviewed: Yes Assessment & Plan Discharge Plan: Home Plan to discharge in: 24 Hours Physician Review Additional Text: Assessment Nausea, vomiting and abdominal pain secondary to moderate mechanical small bowel obstruction with 2 cm soft tissue lesion in the right aspect of the small-bowel likely mesenteric lymph node verses mass with history of colon cancer status post exploratory laparotomy, small-bowel resection with anastomosis, excisional biopsy of mesenteric mass and lysis of adhesions Acute chronic kidney disease stage 2 Hypertension Anemia likely of chronic disease Hypothyroidism Plan Nausea, vomiting and abdominal pain secondary to moderate mechanical small bowel obstruction with 2 cm soft tissue lesion in the right aspect of the small-bowel likely mesenteric lymph node verses mass with history of colon cancer status post exploratory laparotomy, small-bowel resection with anastomosis, excisional biopsy of mesenteric mass and lysis of adhesions: Patient now back on IV Zosyn. Leukocytosis improved. CT scan shows no abscess. Case discussed at length with surgery yesterday. Will obtain Infectious Disease consultation for recommendations on likely oral antibiotic therapy at discharge. Continue to provide medication for diarrhea. C diff culture negative. Anticipate discharge today after recommendations by infectious disease. Will also discuss with her oncologist. Acute chronic kidney disease stage 2: Renal function improved. Hypertension: Patient currently off lisinopril. Will monitor this closely off medication. Currently on beta-edson therapy. Anemia likely of chronic disease: Will monitor this closely. Continue monitor closely. Maintain hemoglobin above 8.0. Will check iron and B12 studies. Patient may require supplementation. Hypothyroidism: Continue medication Time Spent Managing Pts Care (In Minutes): 55
--- NOTE | 2020-06-28 14:16 | P.CNS ---
Date of Consult: 06/28/20 For subjective: Patient is a 79-year-old female with medical history of colon cancer who presents with abdominal distension, nausea and vomiting. Patient was found to have mechanical small-bowel obstruction with bowel resection on 06/17/2020. Patient with persistent leukocytosis which I have been consulted for. - Past Medical/Surgical History Diabetic: No -: Hypertension -: Colon Ca 2012 Chemo/radiation -: Hysterectomy -: Tubal ligation -: Port placement and removal Psychosocial/ Personal History: Patient lives at home with her - Family History Family History: Reviewed- Non-Contributory - Social History Smoking Status: Never smoker Alcohol use: No CD- Drugs: No Caffeine use: Yes Place of Residence: Home ROS: CV: Denies chest pain RESP: Some shortness of breath with exertion : Denies dysuria GI: Reports diarrhea >5 times daily, tolerating GI soft diet MSK: Ambulatory with PT Objective: Temp Pulse Resp BP Pulse Ox 98.6 F 68 19 108/54 L 99 06/28/20 12:00 06/28/20 12:00 06/28/20 12:00 06/28/20 12:00 06/28/20 12:00 Labs: Sodium 138, potassium 4.1, BUN 8, creatinine 1.22, WBC 12.3, hemoglobin 8.0, hematocrit 24.[address] 06/11: EXAM DESCRIPTION: CT - Abdomen Pelvis Wo Contrast - 06/11/2020 7:58 pm CLINICAL HISTORY: Abdominal pain. ABD PAIN COMPARISON: CT ABD PELVIS W CONTRAST dated 05/02/2013 TECHNIQUE: CT imaging of the abdomen and pelvis was performed without contrast. Solid organ and vascular assessment is limited due to lack of IV contrast. All CT scans are performed using dose optimization technique as appropriate and may include automated exposure control or mA/KV adjustment according to patient size. FINDINGS: The lower lung guaman are clear. The liver, spleen, pancreas, adrenal glands are within normal limits for a limited non-contrast examination.Small bilateral renal calculi are seen without hydronephrosis. Significant distention of small bowel loops identified with mild free fluid in the abdomen pelvis, compatible with moderate mechanical small-bowel obstruction. A discrete point of transition is difficult to ascertain. No pneumoperitoneum. Within the right aspect of the small bowel mesentery a 2 cm soft tissue lesion is noted which is of unclear etiology but may represent an enlarged lymph node or a small mesenteric mass. The appendix is normal. The osseous structures are within normal limits. IMPRESSION: Moderate grade mechanical small bowel obstruction is seen with mild free fluid in the abdomen and pelvis. 2 cm soft tissue lesion is seen in the right aspect of the small bowel mesentery may represent a mesenteric lymph node or small mesenteric mass. Bilateral nephrolithiasis without hydronephrosis. A limited non-contrast examination was performed as detailed. Small bowel xray 06/15: EXAM DESCRIPTION: RAD - Small Bowel Series - 06/15/2020 5:21 pm CLINICAL HISTORY: Abdominal pain/ COMPARISON: June 11, 2020 cat scan FINDINGS: Contrast enters the colon by approximately 12 hours. Moderate dilatation of jejunum and portions of ileum. IMPRESSION: Patient has a very high-grade small-bowel obstruction . The exam was discussed with Dr. Talib Tan CT 06/27: EXAM DESCRIPTION: CT - Abdomen Pelvis Wo Contrast - 06/27/2020 10:30 am CLINICAL HISTORY: follow up surgery, rule out infection/abscess COMPARISON: Abdomen Pelvis Wo Contrast dated 06/11/2020; Abdomen Single View dated 06/21/2020; Abdomen 1 View (KUB) dated 06/20/2020; Small Bowel Series dated 06/15/2020; Abdomen W Erect dated 06/13/2020 TECHNIQUE: Axial [address] imaging of the abdomen and pelvis was performed without IV contrast. No IV contrast was given because of allergy, abnormal renal function, patient refusal or physician request. Oral contrast was given. All CT scans are performed using dose optimization technique as appropriate and may include automated exposure control or mA/KV adjustment according to patient size. FINDINGS: Small bilateral pleural effusions in each posterior gutter with associated atelectasis. The liver, spleen and pancreas show no suspicious findings on non-contrast imaging. Gallbladder is contracted tightly. No biliary tree dilatation. No hydronephrosis or suspicious renal mass. Nonobstructing calculi are present. No perinephric stranding. Punctate air within the urinary bladder is probably from a catheterization. Bladder is mostly contracted. No significant adrenal finding. Isodense renal masses and pyelonephritis cannot be excluded in the absence of IV contrast. Small hiatal hernia is present. No gastric dilatation or wall thickening. Contrast from various diagnostic studies present within the colon down to the distal rectum. Colon is tortuous and redundant. No colon wall thickening or mass. A few mildly prominent small bowel loops are present. Small bowel surgical changes are noted. Small bowel wall edema is present through most of the loops of the ileum. This is not unexpected given the recent surgery. No extravasation of oral contrast. No abscess is present. No free air. Minimal free fluid in the dependent portion of the pelvis well within normal limits for the recent surgery. No hernia, mass or bulky lymphadenopathy. Midline skin carlito noted. No suspicious bony findings. IMPRESSION: Small bowel postsurgical changes are present. Wall thickening of multiple nondilated small bowel loops noted, not unexpected given the recent surgery. ROS: CV: S1,S2 regular RESP: Good breath sounds ABD: bowel sounds present, carlito intact s/p bowel resection Assessment and plan: Leukocytosis SBO with resection 06/17 Diarrhea, C.diff negative, still suspecting C. Diff infection Finished 8 day course of Cipro and Flagyl and a 7 day course of Zosyn Upon discharge, recommend Vancomycin PO x10 days and a probiotic Will continue to monitor Thank you for consult Patient discussed with Dr. Espinoza
[2020-06-28] MEDS: VANCOMYCIN ORAL SOLN 250 MG/5 ML OSYR PO SCH (17:12)
[2020-06-28] MEDS: ATORVASTATIN 10 MG TAB PO SCH (20:46)
--- NOTE | 2020-06-28 21:38 | P.PN ---
Date of Service: 06/28/20 Vital Signs Temp Pulse Resp BP Pulse Ox 99.8 F 76 16 98/49 L 92 06/28/20 20:00 06/28/20 20:00 06/28/20 20:00 06/28/20 20:00 06/28/20 20:00 Medications Acetaminophen (Tylenol -Extra Strength) 500 mg PO Q4H PRN PRN Reason: fever Stop: 07/26/20 18:51 Last Admin: 06/26/20 19:07 Dose: 500 mg Documented by: Hydrocodone Bitart/Acetaminophen ([place] 5/325) 1 tab PO Q4H PRN PRN Reason: Pain scale 5-7 (Moderate) Stop: 07/24/20 22:30 Last Admin: 06/26/20 10:21 Dose: 1 tab Documented by: Atorvastatin Calcium (Lipitor) 10 mg PO BEDTIME COUNT INCLUDES THE [facility] Stop: 07/23/20 21:01 Last Admin: 06/28/20 20:46 Dose: 10 mg Documented by: Dextrose (Dextrose 50% Syringe/Vial) 12.5 gm IV PRN PRN PRN Reason: HYPOGLYCEMIA Stop: 07/19/20 05:53 Last Admin: 06/19/20 12:08 Dose: 12.5 gm Documented by: Glucagon (Glucagen) 1 mg IM 1X PRN PRN Reason: HYPOGLYCEMIA Stop: 07/19/20 05:53 Home Med (Home Med) 1 ea OPTH DAILY COUNT INCLUDES THE [facility] Stop: 07/24/20 09:01 Hydrocortisone Acetate (Cortizone 1% Ointment) 1 appl TOP TID PRN PRN Reason: ITCHING Stop: 07/27/20 18:17 Sodium Chloride (Sodium Chloride) 250 mls @ 0 mls/hr IV .Q0M COUNT INCLUDES THE [facility] Stop: 07/22/20 11:01 Insulin Human Regular (Novolin -R) 0 unit SQ ACHS COUNT INCLUDES THE [facility]; Protocol Stop: 07/26/20 07:31 Last Admin: 06/28/20 16:30 Dose: Not Given Documented by: Lactobacillus Acidoph/Bulgaricus (Lactinex) 1 tab PO TID COUNT INCLUDES THE [facility] Stop: 07/26/20 14:01 Last Admin: 06/28/20 20:45 Dose: 1 tab Documented by: Levothyroxine Sodium (Synthroid) 0.05 mg PO DAILYAC COUNT INCLUDES THE [facility] Stop: 09/29/20 06:31 Last Admin: 06/28/20 05:51 Dose: 0.05 mg Documented by: Loperamide HCl (Imodium) 2 mg PO Q4H PRN PRN Reason: DIARRHEA Stop: 07/27/20 11:46 Last Admin: 06/28/20 17:12 Dose: 2 mg Documented by: Metoprolol Tartrate (Lopressor) 25 mg PO BID 6AM 6PM COUNT INCLUDES THE [facility] Stop: 07/27/20 08:31 Last Admin: 06/28/20 17:11 Dose: Not Given Documented by: Nutritional Formula (Ensure High Protein) 237 ml PO BID COUNT INCLUDES THE [facility] Stop: 07/25/20 21:01 Last Admin: 06/28/20 20:56 Dose: Not Given Documented by: Ondansetron HCl (Zofran) 4 mg IV Q6HP PRN PRN Reason: NAUSEA / VOMITING Stop: 07/11/20 22:53 Last Admin: 06/22/20 00:07 Dose: 4 mg Documented by: Phenol (Phenaseptic [place]) 2 appl MM Q4H PRN PRN Reason: SORE THROAT Stop: 07/12/20 23:05 Last Admin: 06/16/20 14:42 Dose: 2 appl Documented by: Sodium Chloride (Normal Saline Flush) 10 ml IV BID COUNT INCLUDES THE [facility] Stop: 07/11/20 22:53 Last Admin: 06/28/20 20:48 Dose: 10 ml Documented by: Vancomycin HCl (Vancocin) 125 mg PO Q6HR COUNT INCLUDES THE [facility]; Protocol Stop: 07/28/20 18:01 Last Admin: 06/28/20 17:12 Dose: 125 mg Documented by: Microbiology Results 06/11/20 18:50 Blood - Blood Aerobic Blood Culture - Final No growth in 5 days. 06/11/20 18:50 Blood - Blood Anaerobic Blood Culture - Final No growth in 5 days. 06/11/20 18:50 Blood - Blood Aerobic Blood Culture - Final No growth in 5 days. 06/11/20 18:50 Blood - Blood Anaerobic Blood Culture - Final No growth in 5 days. Assessment/ Plan: Nephrology +BM CPS stable without CP or SOB. No acute events overnight. Vitals, medications, blood work and imaging reviewed in the chart. General: Oriented x3, Cooperative HEENT: Atraumatic Respiratory: Clear to auscultation bilaterally Cardiovascular: No edema, Regular rate/rhythm Gastrointestinal: Soft and benign, Non-distended, Tenderness Musculoskeletal: No clubbing, No contractures. Tremor. Integumentary: No rashes, No cyanosis Neurological: Normal speech Laboratory Data (last 24 hrs) 06/11/20 18:50: Magnesium 1.6 L 06/11/20 18:50: PT 11.4, INR 0.97, APTT 26.3 06/11/20 18:50: WBC 7.2, Hgb 11.4 L, Hct 34.5 L, Plt Count 215 06/11/20 18:50: Sodium 133 L, Potassium 4.0, BUN 35 H, Creatinine 2.55 H, Glucose 160 H, Total Bilirubin 0.6, AST 25, ALT 15, Alkaline Phosphatase 59, Amylase 54, Lipase 169 Imagings Data: EXAM DESCRIPTION: CT - Abdomen Pelvis Wo Contrast - 06/11/2020 7:58 pm CLINICAL HISTORY: Abdominal pain. ABD PAIN COMPARISON: CT ABD PELVIS W CONTRAST dated 05/02/2013 TECHNIQUE: CT imaging of the abdomen and pelvis was performed without contrast. Solid organ and vascular assessment is limited due to lack of IV contrast. All CT scans are performed using dose optimization technique as appropriate and may include automated exposure control or mA/KV adjustment according to patient size. FINDINGS: The lower lung guaman are clear. The liver, spleen, pancreas, adrenal glands are within normal limits for a limited non-contrast examination.Small bilateral renal calculi are seen without hydronephrosis. Significant distention of small bowel loops identified with mild free fluid in the abdomen pelvis, compatible with moderate mechanical small-bowel obstruction. A discrete point of transition is difficult to ascertain. No pneumoperitoneum. Within the right aspect of the small bowel mesentery a 2 cm soft tissue lesion is noted which is of unclear etiology but may represent an enlarged lymph node or a small mesenteric mass. The appendix is normal. The osseous structures are within normal limits. IMPRESSION: Moderate grade mechanical small bowel obstruction is seen with mild free fluid in the abdomen and pelvis. 2 cm soft tissue lesion is seen in the right aspect of the small bowel mesentery may represent a mesenteric lymph node or small mesenteric mass. Bilateral nephrolithiasis without hydronephrosis. A limited non-contrast examination was performed as detailed. EXAM DESCRIPTION: RAD - Chest Single View - 06/11/2020 7:57 pm CLINICAL HISTORY: code sepsis Chest pain. COMPARISON: Chest Pa And Lat (2 Views) dated 11/01/2019; Chest Pa And Lat (2 Views) dated 10/03/2019; CHEST SINGLE VIEW dated 01/02/2012; CHEST SINGLE VIEW dated 11/10/2011 FINDINGS: Portable technique limits examination quality. The lungs are grossly clear. The heart is normal in size. No displaced fractures. IMPRESSION: No acute intrathoracic process suspected. EXAM DESCRIPTION: RAD - Small Bowel Series - 06/15/2020 5:21 pm CLINICAL HISTORY: Abdominal pain/ COMPARISON: June 11, 2020 cat scan FINDINGS: Contrast enters the colon by approximately 12 hours. Moderate dilatation of jejunum and portions of ileum. IMPRESSION: Patient has a very high-grade small-bowel obstruction . Conclusions/Impression: A/ ILYA likely due to hypovolemia Hyponatremia Hypokalemia Hypocalcemia Hypomagnesemia HTN DM II Anemia in chronic illness SBO sp surgery P/ Continue current POC and Medications Replete lytes prn. Encourage nutrition. PRBC as needed. Follow up with surgery. No NSAIDs AM labs. Daily weight
[2020-06-29] MEDS: VANCOMYCIN ORAL SOLN 250 MG/5 ML OSYR PO SCH ×2 (00:52→05:43)
[2020-06-29 05:38] VITALS: TEMP 98.8
[2020-06-29] MEDS: LEVOTHYROXINE SOD 0.05 MG TABLET PO SCH (05:42)
[2020-06-29] MEDS: METOPROLOL TAR 25 MG TAB PO SCH (05:43)
[2020-06-29] MEDS: INSULIN -REGULAR HUMAN 50 UNIT/0.5 ML ML SQ SCH ×2 (07:30→11:30)
[2020-06-29] MEDS: LACTOBACILLUS/ACIDOPHILUS TAB PO SCH (08:26)
[2020-06-29] MEDS: ENSURE HIGH PROTEIN 237 ML CAN PO SCH (08:27)
--- NOTE | 2020-06-29 08:37 | P.PN ---
Date of Service: 06/29/20 For subjective: Patient is a 79-year-old female with medical history of colon cancer who presents with abdominal distension, nausea and vomiting. Patient was found to have mechanical small-bowel obstruction with bowel resection on 06/17/2020. Patient with persistent leukocytosis which I have been consulted for. Patient examined at bedside. Reports no diarrhea episodes over night but she did have one this morning. Tolerating meals. Objective: Temp Pulse Resp BP Pulse Ox 98.6 F 68 19 108/54 L 99 06/28/20 12:00 06/28/20 12:00 06/28/20 12:00 06/28/20 12:06/28/20 12:00 Labs: no new labs available Abd CT 06/11: EXAM DESCRIPTION: CT - Abdomen Pelvis Wo Contrast - 06/11/2020 7:58 pm CLINICAL HISTORY: Abdominal pain. ABD PAIN COMPARISON: CT ABD PELVIS W CONTRAST dated 05/02/2013 TECHNIQUE: CT imaging of the abdomen and pelvis was performed without contrast. Solid organ and vascular assessment is limited due to lack of IV contrast. All CT scans are performed using dose optimization technique as appropriate and may include automated exposure control or mA/KV adjustment according to patient size. FINDINGS: The lower lung guaman are clear. The liver, spleen, pancreas, adrenal glands are within normal limits for a limited non-contrast examination.Small bilateral renal calculi are seen without hydronephrosis. Significant distention of small bowel loops identified with mild free fluid in the abdomen pelvis, compatible with moderate mechanical small-bowel obstruction. A discrete point of transition is difficult to ascertain. No pneumoperitoneum. Within the right aspect of the small bowel mesentery a 2 cm soft tissue lesion is noted which is of unclear etiology but may represent an enlarged lymph node or a small mesenteric mass. The appendix is normal. The osseous structures are within normal limits. IMPRESSION: Moderate grade mechanical small bowel obstruction is seen with mild free fluid in the abdomen and pelvis. 2 cm soft tissue lesion is seen in the right aspect of the small bowel mesentery may represent a mesenteric lymph node or small mesenteric mass. Bilateral nephrolithiasis without hydronephrosis. A limited non-contrast examination was performed as detailed. Small bowel xray 06/15: EXAM DESCRIPTION: RAD - Small Bowel Series - 06/15/2020 5:21 pm CLINICAL HISTORY: Abdominal pain/ COMPARISON: June 11, 2020 cat scan FINDINGS: Contrast enters the colon by approximately 12 hours. Moderate dilatation of jejunum and portions of ileum. IMPRESSION: Patient has a very high-grade small-bowel obstruction . The exam was discussed with Dr. Mayers Abd CT 06/27: EXAM DESCRIPTION: CT - Abdomen Pelvis Wo Contrast - 06/27/2020 10:30 am CLINICAL HISTORY: follow up surgery, rule out infection/abscess COMPARISON: Abdomen Pelvis Wo Contrast dated 06/11/2020; Abdomen Single View dated 06/21/2020; Abdomen 1 View (KUB) dated 06/20/2020; Small Bowel Series dated 06/15/2020; Abdomen W Erect dated 06/13/2020 TECHNIQUE: Axial [address] imaging of the abdomen and pelvis was performed without IV contrast. No IV contrast was given because of allergy, abnormal renal function, patient refusal or physician request. Oral contrast was given. All CT scans are performed using dose optimization technique as appropriate and may include automated exposure control or mA/KV adjustment according to patient size. FINDINGS: Small bilateral pleural effusions in each posterior gutter with associated atelectasis. The liver, spleen and pancreas show no suspicious findings on non-contrast imaging. Gallbladder is contracted tightly. No biliary tree dilatation. No hydronephrosis or suspicious renal mass. Nonobstructing calculi are present. No perinephric stranding. Punctate air within the urinary bladder is probably from a catheterization. Bladder is mostly contracted. No significant adrenal finding. Isodense renal masses and pyelonephritis cannot be excluded in the absence of IV contrast. Small hiatal hernia is present. No gastric dilatation or wall thickening. Contrast from various diagnostic studies present within the colon down to the distal rectum. Colon is tortuous and redundant. No colon wall thickening or mass. A few mildly prominent small bowel loops are present. Small bowel surgical changes are noted. Small bowel wall edema is present through most of the loops of the ileum. This is not unexpected given the recent surgery. No extravasation of oral contrast. No abscess is present. No free air. Minimal free fluid in the dependent portion of the pelvis well within normal limits for the recent surgery. No hernia, mass or bulky lymphadenopathy. Midline skin carlito noted. No suspicious bony findings. IMPRESSION: Small bowel postsurgical changes are present. Wall thickening of multiple nondilated small bowel loops noted, not unexpected given the recent surgery. ROS: CV: S1,S2 regular RESP: Good breath sounds ABD: bowel sounds present, carlito intact s/p bowel resection, no erythema warmth or drainage Assessment and plan: Leukocytosis SBO with resection 06/17 Diarrhea, C.diff negative, still suspecting C. Diff infection Finished 8 day course of Cipro and Flagyl and a 7 day course of Zosyn Vancomycin PO day 12/05 Will continue to monitor Patient discussed with Dr. Espinoza
[2020-06-29 08:46] VITALS: O2SAT 96
[2020-06-29 08:56] LABS: Absolute Lymphocytes (CBC) 0.9 K/uL (0.7-4.9); Basophils % 0.5 % (0-1.3); Hematocrit 28.4 % (36.0-45.0); Lymphocytes % 8.9 % (15.3-44.8); MPV 9.5 fL (7.6-11.3); RBC Red Blood Cell Count 3.14 M/uL (3.86-4.86)
[2020-06-29 09:02] VITALS: BP 119/58
--- NOTE | 2020-06-29 09:39 | P.DS ---
Admission Date: 06/11/20 Discharge Date: 06/29/20 Primary Care Provider: Dr Cordero Disposition: ROUTINE DISCHARGE Discharge Condition: GOOD Reason for Admission: Small-bowel obstruction Consultations: Surgery-Dr. Mayers Oncology-Dr. Kaur Infectious disease-Dr. Espinoza Nephrology-Dr. Yang Procedures: CT scan: FINDINGS: The lower lung guaman are clear. The liver, spleen, pancreas, adrenal glands are within normal limits for a limited non-contrast examination.Small bilateral renal calculi are seen without hydronephrosis. Significant distention of small bowel loops identified with mild free fluid in the abdomen pelvis, compatible with moderate mechanical small-bowel obstruction. A discrete point of transition is difficult to ascertain. No pneumoperitoneum. Within the right aspect of the small bowel mesentery a 2 cm soft tissue lesion is noted which is of unclear etiology but may represent an enlarged lymph node or a small mesenteric mass. The appendix is normal. The osseous structures are within normal limits. IMPRESSION: Moderate grade mechanical small bowel obstruction is seen with mild free fluid in the abdomen and pelvis. 2 cm soft tissue lesion is seen in the right aspect of the small bowel mesentery may represent a mesenteric lymph node or small mesenteric mass. Bilateral nephrolithiasis without hydronephrosis. Surgery: Date of Procedure: 06/17/2020 Surgeon: Shaggy Mayers MD Stock Associate: PAPITO Galloway. Preoperative Diagnosis: Small bowel obstruction, mesenteric mass, history of rectal cancer. Postoperative Diagnosis: Small bowel obstruction, mesenteric mass, history of rectal cancer plus intraabdominal adhesions. Procedures: 1. Exploratory laparotomy. 2. Small bowel resection with anastomosis. 3. Excisional biopsy of mesenteric mass. 4. Lysis of adhesions. Specimen: Small bowel with mesentery and the mass at the end of it. Anesthesia: General plus local. Follow up CT scan: FINDINGS: Small bilateral pleural effusions in each posterior gutter with associated atelectasis. The liver, spleen and pancreas show no suspicious findings on non-contrast imaging. Gallbladder is contracted tightly. No biliary tree dilatation. No hydronephrosis or suspicious renal mass. Nonobstructing calculi are present. No perinephric stranding. Punctate air within the urinary bladder is probably from a catheterization. Bladder is mostly contracted. No significant adrenal finding. Isodense renal masses and pyelonephritis cannot be excluded in the absence of IV contrast. Small hiatal hernia is present. No gastric dilatation or wall thickening. Contrast from various diagnostic studies present within the colon down to the distal rectum. Colon is tortuous and redundant. No colon wall thickening or mass. A few mildly prominent small bowel loops are present. Small bowel surgical changes are noted. Small bowel wall edema is present through most of the loops of the ileum. This is not unexpected given the recent surgery. No extravasation of oral contrast. No abscess is present. No free air. Minimal free fluid in the dependent portion of the pelvis well within normal limits for the recent surgery. No hernia, mass or bulky lymphadenopathy. Midline skin acrlito noted. No suspicious bony findings. IMPRESSION: Small bowel postsurgical changes are present. Wall thickening of multiple nondilated small bowel loops noted, not unexpected given the recent surgery. No abscess, free air or worrisome free fluid collection. 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 Patient admitted for further evaluation and treatment. Hospital Course: Patient presented with nausea, vomiting and abdominal pain secondary to moderate mechanical small bowel obstruction with noted 2 cm soft tissue lesion in the right aspect of the small-bowel. Patient with history of rectal cancer status. Patient also found to have acute on chronic renal failure and anemia. Patient was admitted for further evaluation. Surgery and nephrology were consulted. The patient was observed without any significant change. Surgical intervention was required. Surgery performed exploratory laparotomy, small-bowel resection with anastomosis, excisional biopsy of mesenteric mass and lysis of adhesions. Postoperatively the patient improved. Patient had some diarrhea. Pathology showed no malignancy but inflammation noted indicated possible of perforated diverticulitis, which was not identified in surgery. This was discussed in detail with surgery. Repeat CT scan shows no indication of abscess, free air or obstruction. White count was slightly elevated. This improved. Infectious Disease was consulted to further evaluate. Even though patient had negative C diff culture infectious disease recommended to treat. At discharge patient tolerating regular diet. At discharge she will continue with postoperative instructions. No heavy lifting, pushing or pulling. Recommend follow up with surgery in 1 week to follow up this hospitalization. At discharge she will also continue with vancomycin 250 mg 4 times a day for 10 days. The patient will also continue with lactobacillus 1 pill 3 times a day. Patient may use cortisone ointment for itching in the rectal region. Recommend to recheck lab- BMP and CBC in 1 week. Will recommend colonoscopy in the future with GI to further address and monitor especially with her history of rectal cancer. Recommend follow up with PCP to further monitor and address. As mentioned above patient also had acute on chronic renal disease stage II. This has significantly improved. Nephrology was consulted. Medications have been adjusted. Patient no longer on lisinopril hydrochlorothiazide. Recommend follow up with nephrology in 1-2 weeks to follow up her care. Recommend recheck BMP at that time. Recommend no further use of nonsteroidal anti-inflammatories. Future medications would to be renally dose. Patient with hypertension. As mentioned above lisinopril hydrochlorothiazide has been discontinued. New medication was added. Blood pressure stable peer E At discharge she will continue with metoprolol 25 mg 1 pill twice daily. Recommend to maintain blood pressure less 150/80. Further adjustment can be done by her PCP. Patient with anemia of chronic disease. Patient had some postop anemia. Patient given Epogen. Anemia has improved. At discharge she may continue with multi vitamin daily. Recommend to recheck CBC in 2-4 weeks to monitor her progress. Patient with hypothyroidism. This has remained stable. At discharge she will continue with levothyroxine 50 mcg daily. Recommend to recheck lab-tsh and free T4 in 4-6 weeks. Patient with hyperlipidemia. At discharge she will continue with pravastatin 20 mg daily. As mentioned above patient with history of rectal cancer. Recommend follow up with oncology as an outpatient. Patient likely you should have colonoscopy in the future to further address and monitor. Vital Signs/Physical Exam: Temp Pulse Resp BP Pulse Ox 98.8 F 63 18 119/58 L 98 06/29/20 08:00 06/29/20 08:00 06/29/20 08:00 06/29/20 08:00 06/29/20 08:00 General: Alert, In no apparent distress, Oriented x3 HEENT: Atraumatic Neck: Supple Respiratory: Clear to auscultation bilaterally, Normal air movement Cardiovascular: Normal pulses, Regular rate/rhythm Gastrointestinal: Normal bowel sounds, Soft and benign, Non-distended, No masses, No rebound, No guarding, Other (Postop changes noted. No significant abdominal pain) Integumentary: No tenderness/swelling, No erythema, No warmth, No cyanosis Neurological: Normal speech, Normal strength at 5/5 x4 extr, Normal tone, Normal affect Laboratory Data at Discharge: WBC 9.9 K/uL (4.3-10.9) D 06/29/20 08:42 Hgb 9.7 g/dL (12.0-15.0) L 06/29/20 08:42 Hct 28.4 % (36.0-45.0) L D 06/29/20 08:42 Plt Count 331 K/uL (152-406) 06/29/20 08:42 PT 11.4 SECONDS (9.5-12.5) 06/11/20 18:50 INR 0.97 06/11/20 18:50 APTT 26.3 SECONDS (24.3-36.9) 06/11/20 18:50 Sodium 138 mmol/L (136-145) 06/27/20 05:54 Potassium 4.1 mmol/L (3.5-5.1) 06/27/20 05:54 BUN 8 mg/dL (7-18) 06/27/20 05:54 Creatinine 1.22 mg/dL (0.55-1.3) 06/27/20 05:54 Glucose 79 mg/dL (74-106) 06/27/20 05:54 Phosphorus 2.9 mg/dL (2.5-4.9) 06/24/20 05:30 Magnesium 2.1 mg/dL (1.8-2.4) 06/27/20 05:54 Total Bilirubin 0.6 mg/dL (0.2-1.0) 06/11/20 18:50 AST 25 U/L (15-37) 06/11/20 18:50 ALT 15 U/L (12-78) 06/11/20 18:50 Alkaline Phosphatase 59 U/L (45-117) 06/11/20 18:50 Amylase 54 U/L (25-115) 06/11/20 18:50 Lipase 169 U/L (73-393) 06/11/20 18:50 Home Medications: Latanoprost [Xalatan] 1 drops OP DAILY 01/02/12 Multi-VIT,(RENAL) [Centrum Silver] 1 each PO DAILY 01/02/12 Mather-3 Fatty Acids/Fish Oil [Fish Oil 1,000 mg Softgel] 1 each PO DAILY 08/29/14 Vitamin E [Vitamin E*] 400 iu PO DAILY 08/29/14 Levothyroxine [Synthroid*] 50 mcg PO DAILY 06/12/20 Pravastatin Sodium [Pravachol] 20 mg PO DAILY 06/12/20 Ensure High Protein 237 ml PO BID #60 can 06/29/20 Hydrocortisone Oint [Cortizone 1% Ointment*] 1 appl TOP TID PRN #1 tube 06/29/20 Lactobacillus Acidophilus [Acidophilus Lactobacilli] 1 each PO TID #90 capsule 06/29/20 Metoprolol Tartrate [Lopressor*] 25 mg PO BID 6AM 6PM #60 tab 06/29/20 Vancomycin Oral Soln [Vancocin HCl*] 2.5 ml PO Q6HR #1 bottle 06/29/20 New Medications: Lactobacillus Acidophilus [Acidophilus Lactobacilli] 1 each PO TID #90 capsule Hydrocortisone Oint [Cortizone 1% Ointment*] 1 appl TOP TID PRN #1 tube PRN Reason: Itching Ensure High Protein 237 ml PO BID #60 can Metoprolol Tartrate [Lopressor*] 25 mg PO BID 6AM 6PM #60 tab Vancomycin Oral Soln [Vancocin HCl*] 2.5 ml PO Q6HR #1 bottle Patient Discharge Instructions: 1. Recommend follow up with PCP in 1 week to follow up this hospitalization. 2. Patient presented with nausea, vomiting and abdominal pain secondary to moderate mechanical small bowel obstruction with noted 2 cm soft tissue lesion in the right aspect of the small-bowel. Patient with history of rectal cancer status. Patient also found to have acute on chronic renal failure and anemia. Patient was admitted for further evaluation. Surgery and nephrology were consulted. The patient was observed without any significant change. Surgical intervention was required. Surgery performed exploratory laparotomy, small-bowel resection with anastomosis, excisional biopsy of mesenteric mass and lysis of adhesions. Postoperatively the patient i mproved. Patient had some diarrhea. Pathology showed no malignancy but inflammation noted indicated possible of perforated diverticulitis, which was not identified in surgery. This was discussed in detail with surgery. Repeat CT scan shows no indication of abscess, free air or obstruction. White count was slightly elevated. This improved. Infectious Disease was consulted to further evaluate. Even though patient had negative C diff culture infectious disease recommended to treat. At discharge patient tolerating regular diet. At discharge she will continue with postoperative instructions. No heavy lifting, pushing or pulling. Recommend follow up with surgery in 1 week to follow up this hospitalization. At discharge she will also continue with vancomycin 250 mg 4 times a day for 10 days. The patient will also continue with lactobacillus 1 pill 3 times a day. Patient may use cortisone ointment for itching in the rectal region. Recommend to recheck lab-BMP and CBC in 1 week. Will recommend colonoscopy in the future with GI to further address and monitor especially with her history of rectal cancer. Recommend follow up with PCP to further monitor and address. 3. As mentioned above patient also had acute on chronic renal disease stage II. This has significantly improved. Nephrology was consulted. Medications have been adjusted. Patient no longer on lisinopril h ydrochlorothiazide. Recommend follow up with nephrology in 1-2 weeks to follow up her care. Recommend recheck BMP at that time. Recommend no further use of nonsteroidal anti-inflammatories. Future medications would to be renally dose. 4. Patient with hypertension. As mentioned above lisinopril hydrochlorothiazide has been discontinued. New medication was added. Blood pressure stable peer E At discharge she will continue with metoprolol 25 mg 1 pill twice daily. Recommend to maintain blood pressure less 150/80. Further adjustment can be done by her PCP. 5. Patient with anemia of chronic disease. Patient had some postop anemia. Patient given Epogen. Anemia has improved. At discharge she may continue with multi vitamin daily. Recommend to recheck CBC in 2-4 weeks to monitor her progress. 6. Patient with hypothyroidism. This has remained stable. At discharge she will continue with levothyroxine 50 mcg daily. Recommend to recheck lab-tsh and free T4 in 4-6 weeks. 7. Patient with hyperlipidemia. At discharge she will continue with pravastatin 20 mg daily. 8. As mentioned above patient with history of rectal cancer. Recommend follow up with oncology as an outpatient. Patient likely you should have colonoscopy in the future to further address and monitor. Diet: Renal Activity: Fall precautions Time spent managing pt's care (in minutes): 55
== END 2020-06-29 11:47 | disposition home or self-care (01) | DRG 330 ==
LOC: ER 17:36 → ERHOLD 20:58 → 2ND 22:23 → ERHOLD 06-17 16:12 → 2ND 06-19 09:38
PROVIDERS: ADMIT Family Medicine; ATTEND Family Medicine
PROC: 0DJV0ZZ Inspection of Mesentery, Open Approach (ICD-10-PCS; 2020-06-17)
PROC: 0DBV0ZX Excision of Mesentery, Open Approach, Diagnostic (ICD-10-PCS; 2020-06-17)
PROC: 0DT80ZZ Resection of Small Intestine, Open Approach (ICD-10-PCS; principal; 2020-06-17 10:00)
PROC: 3E0336Z Introduction of Nutritional Substance into Peripheral Vein, Percutaneous Approach (ICD-10-PCS; 2020-06-20)
PROC: 30233N1 Transfusion of Nonautologous Red Blood Cells into Peripheral Vein, Percutaneous Approach (ICD-10-PCS; 2020-06-22)
DX: K57.00 Diverticulitis of small intestine with perforation and abscess without bleeding (principal); N17.9 Acute kidney failure, unspecified; E87.1 Hypo-osmolality and hyponatremia; I12.9 Hypertensive chronic kidney disease with stage 1 through stage 4 chronic kidney disease, or unspecified chronic kidney disease; E86.1 Hypovolemia; E83.51 Hypocalcemia; E83.42 Hypomagnesemia; E11.22 Type 2 diabetes mellitus with diabetic chronic kidney disease; D63.8 Anemia in other chronic diseases classified elsewhere; I88.0 Nonspecific mesenteric lymphadenitis; E87.6 Hypokalemia; D72.829 Elevated white blood cell count, unspecified; E03.9 Hypothyroidism, unspecified; N18.2 Chronic kidney disease, stage 2 (mild); D50.9 Iron deficiency anemia, unspecified; E78.5 Hyperlipidemia, unspecified; Z85.038 Personal history of other malignant neoplasm of large intestine; Z90.710 Acquired absence of both cervix and uterus; Z85.048 Personal history of other malignant neoplasm of rectum, rectosigmoid junction, and anus; Z79.890 Hormone replacement therapy; Z98.51 Tubal ligation status; Z79.899 Other long term (current) drug therapy; Z20.828 Contact with and (suspected) exposure to other viral communicable diseases
CPT/HCPCS: 36415; 36430; 71045; 74018; 74019; 74176; 74250; 80048; 80076; 81001; 82150; 82550; 82553; 82607; 82728; 82947; 83540; 83605; 83690; 83735; 83880; 84100; 84132; 84145; 84439; 84443; 84466; 84484; 85014; 85018; 85025; 85610; 85730; 86850; 86900; 86901; 87040; 87086; 87088; 87324; 87449; 88305; 88307; 93005; 96365; 96367; 96375; 97110; 97116; 97161; 97530; 99285; J0696; J0744; J1170; J1644; J2250; J2270; J2405; J2543; J2704; J2710; J3010; J3475; J3480; J7030; J7040; J7050; J7120; J7121; J7799; P9016; U0002

== ENCOUNTER 2020-09-18 09:27 | Inpatient (IN) | payer OTHER ==
[2020-09-18] MEDS ORDERED: NA CHLORIDE 0.9% 1,000 ML ONE ×2 (10:16→16:47)
[2020-09-18] MEDS ORDERED: dilTIAZem HCL 25 MG/5 ML VIAL IV ONE (10:16)
[2020-09-18 10:25] LABS: Absolute Lymphocytes (CBC) 4.5 K/uL (0.7-4.9); Basophils % 0.2 % (0-1.3); Hematocrit 27.4 % (36.0-45.0); Lymphocytes % 52.9 % (15.3-44.8); MPV 9.5 fL (7.6-11.3); RBC Red Blood Cell Count 2.98 M/uL (3.86-4.86)
[2020-09-18 10:41] LABS: Protime INR 1.43
[2020-09-18 10:45] LABS: Bilirubin Direct 0.2 mg/dL (0-0.2); Bilirubin Total 0.4 mg/dL (0.2-1.0); Magnesium 1.6 mg/dL (1.8-2.4); Potassium 3.7 mmol/L (3.5-5.1); Protein, Total 6.1 g/dL (6.4-8.2); Troponin (Emerg Dept Use Only) 0.02 ng/mL (0.0-0.045)
--- NOTE | 2020-09-18 11:03 | RAD REPORT ---
EXAM DESCRIPTION: RAD - Chest Single View - 09/18/2020 10:48 am CLINICAL HISTORY: fatigue, fall COMPARISON: Portable June 21 TECHNIQUE: AP portable chest image was obtained 09/18/2020 10:48 am . FINDINGS: No pulmonary contusion or acute lung parenchymal process identified. Interstitial pattern matches comparison. Heart and vasculature are normal. Left base parenchymal opacification and pleural opacification are still present. Right costophrenic angle blunting has resolved or substantially dim inished. Apical thickening and nodularity match comparison. No acute bony abnormality seen. No acute aortic findings suspected. IMPRESSION: Chronic pleural and parenchymal opacification left base similar to May 2020. No acute chest finding seen.
[2020-09-18 11:05] LABS: Urine Blood 3+ (NEG); Urine Glucose NEGATIVE (NEG); Urine Protein 1+ (NEG); Urine Specific Gravity 1.015 (1.005-1.030); Urine pH 5.5 (5.0-7.0)
[2020-09-18] MEDS ORDERED: DIGOXIN 0.25 MG/ML AMP ONE (11:13)
[2020-09-18] MEDS ORDERED: DILTIAZEM 125 MG in NS 125 ML IVPB ONE (11:15)
--- NOTE | 2020-09-18 11:37 | EDPHYS ---
Physician Documentation [facility] Name: Leigh Ann Galindo Age: 80 yrs Sex: Female : 1940 Arrival Date: 09/18/2020 Time: 09:29 Bed 4 Private MD: Justin Cordero R ED Physician Jeff Bar HPI: 09/18 10:02 This 80 yrs old Female presents to ER via Wheelchair with complaints of Fall ps1 Injury. 10:02 patient has had multiple falls and weakness over the last 3 weeks. Was admitted for ps1 abdominal pain and put on antibiotics. states that she cannot perform ADL's. He walks behind her for support but gives out and falls. Has an old injury to right side of head with contusion and discoloration. states that she will try to perform exercise at home but is still to fatigued to increase muscle strength. No fever. No FND. . 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 - Social history:: Smoking status: . ROS: 10:02 Unable to obtain ROS due to baseline dementia. ps1 Exam: 10:02 Constitutional: This is a well developed, well nourished patient who is awake, alert, ps1 and in no acute distress. 10:02 Eyes: Pupils equal round and reactive to light, extra-ocular motions intact. Lids and lashes normal. Conjunctiva and sclera are non-icteric and not injected. Cardiovascular: Regular rate and rhythm. No gallops, murmurs, or rubs. Normal PMI, no JVD. No pulse deficits. Respiratory: Lungs have equal breath sounds bilaterally, clear to auscultation and percussion. No rales, rhonchi or wheezes noted. No increased work of breathing, no retractions or nasal flaring. Abdomen/GI: Soft, non-tender, with normal bowel sounds. No distension or tympany. No guarding or rebound. No evidence of tenderness throughout. MS/ Extremity: Pulses equal, no cyanosis. Neurovascular intact. Full, normal range of motion. 10:02 Head/face: Noted is contusion, that is superficial, of the right side of forehead. 10:02 Neuro: Memory: immediate memory is impaired. Vital Signs: 09:42 BP 99 / 61; Pulse 86; Resp 16; Temp 98.1(O); Weight 74.84 kg (R); Height 5 ft. 8 in. tw2 (172.72 cm); Pain 0/10; 09:42 Pulse Ox 100% on R/A; tw2 10:00 Pulse 128; tw2 10:16 Pulse 158; tw2 10:21 BP 110 / 84; Pulse 141; Resp 16; Pulse Ox 95% on R/A; tw2 10:23 BP 93 / 53; Pulse 147; Resp 18; Pulse Ox 96% ; tw2 10:28 BP 94 / 39; Pulse 145; Resp 17; Pulse Ox 95% on R/A; tw2 10:32 BP 106 / 46; Pulse 144; Resp 20; Pulse Ox 100% on R/A; tw2 10:38 BP 109 / 55; Pulse 89; Resp 14; Pulse Ox 100% on R/A; tw2 10:48 BP 101 / 60; Pulse 111; Resp 16; Pulse Ox 98% on R/A; tw2 10:51 Pulse 194; tw2 10:51 Pulse 155; tw2 10:51 Pulse 148; tw2 10:51 BP 102 / 70; Pulse 108; tw2 11:07 BP 134 / 75; Pulse 91; Resp 16 S; Pulse Ox 100% on R/A; aa5 11:10 Pulse 180; aa5 11:20 BP 112 / 68; Pulse 102; Resp 14 S; Pulse Ox 100% on R/A; aa5 11:40 BP 112 / 61; Pulse 85; Resp 16 S; Pulse Ox 100% on R/A; aa5 12:00 BP 101 / 41; Pulse 79; Resp 16 S; Temp 98.3(O); Pulse Ox 99% on R/A; aa5 12:40 BP 101 / 58; Pulse 78; aa5 13:30 BP 108 / 59; Pulse 78; Resp 14 S; Pulse Ox 100% on R/A; aa5 14:30 BP 105 / 60; Pulse 74; Resp 16 S; Temp 98.0(O); Pulse Ox 100% on R/A; aa5 09:42 Body Mass Index 25.09 (74.84 kg, 172.72 cm) tw2 10:00 provider notified and at bedside tw2 10:16 provider at bedside tw2 10:23 prvider aware tw2 10:28 provider notified tw2 10:51 provider notified tw2 MDM: 10:13 Patient medically screened. ps1 09/18 09:56 Order name: Basic Metabolic Panel; Complete Time: 11:20 ps1 09/18 09:56 Order name: CBC with Diff; Complete Time: 10:57 ps1 09/18 09:56 Order name: LFT's; Complete Time: 11:20 ps1 09/18 09:56 Order name: Magnesium; Complete Time: 11:20 ps1 09/18 09:56 Order name: NT PRO-BNP; Complete Time: 11:20 ps1 09/18 09:56 Order name: PT-INR; Complete Time: 10:57 ps1 09/18 09:56 Order name: Troponin (emerg Dept Use Only); Complete Time: 11:20 ps1 09/18 09:56 Order name: Lactate; Complete Time: 11:20 ps1 09/18 09:56 Order name: Blood Culture Adult (2) ps1 09/18 09:56 Order name: Urine Culture ps1 09/18 09:56 Order name: Procalcitonin; Complete Time: 11:20 ps1 09/18 10:30 Order name: Urine Dipstick--Ancillary (enter results); Complete Time: 11:20 mt 09/18 11:21 Order name: COVID-19; Complete Time: 14:46 ps1 09/18 14:48 Order name: Lactate Sepsis 2 HR Follow-up; Complete Time: 14:51 EDMS 09/18 09:56 Order name: CT Head C Spine ps1 09/18 09:56 Order name: XRAY Chest (1 view); Complete Time: 11:20 ps1 09/18 09:56 Order name: EKG; Complete Time: 09:57 ps1 09/18 09:56 Order name: Cardiac monitoring; Complete Time: 10:21 ps1 09/18 09:56 Order name: EKG - Nurse/Tech; Complete Time: 10:21 ps1 09/18 09:56 Order name: IV Saline Lock; Complete Time: 10:21 ps1 09/18 13:14 Order name: CT; Complete Time: 13:22 EDMS 09/18 13:31 Order name: Head Angio CT ps1 09/18 13:31 Order name: Neck Angio CT ps1 09/18 14:17 Order name: CT; Complete Time: 14:19 EDMS 09/18 14:19 Order name: CT; Complete Time: 14:20 EDMS 09/18 09:56 Order name: Labs collected and sent; Complete Time: 10:21 ps1 09/18 09:56 Order name: O2 Per Protocol; Complete Time: 11:05 ps1 09/18 09:56 Order name: O2 Sat Monitoring; Complete Time: 11: ps1 09/18 09:56 Order name: Urine Dipstick-Ancillary (obtain specimen); Complete Time: 11:04 ps1 09/18 09:56 Order name: Straight Cath - Urine; Complete Time: 10:21 ps1 Administered Medications: 10:07 Drug: NS 0.9% 1000 ml Route: IV; Rate: 1 bolus; Site: left antecubital; tw2 11:15 Follow up: IV Status: Completed infusion; IV Intake: 1000ml aa5 10:07 Drug: Cardizem 10 mg Route: IVP; Site: left antecubital; tw2 10:54 Follow up: Response: No adverse reaction; No change in condition tw2 10:54 Drug: Cardizem 10 mg Route: IVP; Site: left antecubital; tw2 11:00 Follow up: Response: No adverse reaction tw2 10:55 Drug: Digoxin 0.5 mg Route: IVP; Site: left antecubital; tw2 10:56 Follow up: Response: No adverse reaction tw2 11:52 Not Given (Per Dr. Hughes): Cardizem 5 mg/hr IV at calculated rate continuous; aa5 (standard dilution 125 mg diltiazem mixed in 100mL NS; final concentration 1mg/mL) Disposition: 09/18/20 11:36 Hospitalization ordered by Scott Hughes for Inpatient Admission. Preliminary diagnosis are Paroxysmal atrial fibrillation, Fall, contusion. - Bed requested for Telemetry/MedSurg (Inpatient). - Status is Inpatient Admission. iw - Condition is Fair. - Problem is new. - Symptoms have improved. Signatures: Dispatcher [employer] EDMS Ofelia Lee Irene, RN RN iw Marva Cuevas RN RN tw2 Jeff Bar MD MD ps1 Tatiana Herrera RN aa5 Corrections: (The following items were deleted from the chart) 13:06 11:36 Hospitalization Ordered by Scott Hughes DO for Inpatient Admission. Preliminary bd diagnosis is Paroxysmal atrial fibrillation; Fall; contusion. Bed requested for Intensive Care Unit. Status is Inpatient Admission. Condition is Fair. Problem is new. Symptoms have improved. ps1 15:23 13:06 09/18/2020 11:36 Hospitalization Ordered by Scott Hughes DO for Inpatient iw Admission. Preliminary diagnosis is Paroxysmal atrial fibrillation; Fall; contusion. Bed requested for Telemetry/MedSurg (Inpatient). Status is Inpatient Admission. Condition is Fair. Problem is new. Symptoms have improved. bd
--- NOTE | 2020-09-18 11:37 | ER ---
Nurse's Notes [facility] Name: Leigh Ann Galindo Age: 80 yrs Sex: Female : 1940 Arrival Date: 09/18/2020 Time: 09:29 Bed 4 Private MD: Justin Cordero R Diagnosis: Paroxysmal atrial fibrillation;Fall;contusion Presentation: 09/18 09:42 Chief complaint: Patient states: i fell using my walker last night when i tried to get tw2 into bed, no pain and the bruise on my forehead is where i hit my head some time back, pt denies pain Spouse and/or significant other states: i cant manage her and i want to get her to a intermediate, i cant pick her up. Coronavirus screen: At this time, the client does not indicate any symptoms associated with coronavirus-19. Ebola Screen: Patient denies travel to an Ebola-affected area in the 21 days before illness onset. Initial Sepsis Screen: Does the patient meet any 2 criteria?. Initial Sepsis Screen: Does the patient have a suspected source of infection? No. Patient's initial sepsis screen is negative. Risk Assessment: Do you want to hurt yourself or someone else? Patient reports no desire to harm self or others. Note provider at bedside at this time. Note provider at bedside at this time. Onset of symptoms was September 18, 2020. 09:42 Method Of Arrival: Wheelchair tw2 09:42 Acuity: JESSICA 3 tw2 10:04 Acuity: JESSICA 2 tw2 Triage Assessment: 09:46 General: Appears in no apparent distress. unkempt, Behavior is calm, cooperative, tw2 appropriate for age. Pain: Denies pain. 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 - Social history:: Smoking status: . Screenin:38 Abuse screen: Denies threats or abuse. Nutritional screening: No deficits noted. tw2 Tuberculosis screening: No symptoms or risk factors identified. Fall Risk Secondary diagnosis (15 points) impaired mobility. Assessment: 09:31 General: Appears in no apparent distress. unkempt, Behavior is calm, cooperative, tw2 appropriate for age. Pain: Denies pain. Neuro: Level of Consciousness is awake, alert, obeys commands, Oriented to person, place. Cardiovascular: Heart tones S1 S2 Patient's skin is warm and dry. Cardiovascular: Edema is 4+ to right elbow, right forearm, right wrist, right hand, left upper thigh, left lower thigh, left knee, left midcalf, left ankle, left foot, left forearm, left wrist, left hand, right upper thigh, right lower thigh, right knee, right midcalf, right ankle and right foot. Respiratory: Airway is patent Respiratory effort is even, unlabored, Respiratory pattern is regular, symmetrical, Breath sounds are diminished bilaterally. GI: No signs and/or symptoms were reported involving the gastrointestinal system. Abdomen is round non-distended, Bowel sounds present X 4 quads. : No signs and/or symptoms were reported regarding the genitourinary system. EENT: No signs and/or symptoms were reported regarding the EENT system. Derm: Bruising that is bright red, dark purple, green, yellow, on right side of forehead, right foot, right forearm. 10:16 Reassessment: provider at bedside d/t pts HR, medicated as ordered. tw2 10:38 Reassessment: xray at bedside at this time. tw2 11:05 Reassessment: Pt moved from ER room 14 to ER room 4. Report received from NIKOLE Durham. aa5 11:07 Reassessment: order faxed to pharmacy for Diltiazem drip. tw2 11:10 General: Appears comfortable, Behavior is calm, cooperative, Pt noted to be shaking, pt aa5 states she feels cold. Extra warm blankets provided for patient. . Pain: Denies pain. Neuro: Level of Consciousness is awake, alert, obeys commands, Oriented to person, place, situation. Cardiovascular: Heart tones S1 S2 present Edema 4+ pitting edema noted to anderson legs, 3+ pitting edema noted to anderson forearms. Rhythm is atrial fibrillation. Respiratory: Airway is patent Respiratory effort is even, unlabored, Respiratory pattern is regular, symmetrical, Breath sounds are clear bilaterally. Denies cough, shortness of breath. GI: Abdomen is round non-distended, Bowel sounds present X 4 quads. Abd is soft and non tender X 4 quads. : Pacheco in place to gravity drainage. EENT: No signs and/or symptoms were reported regarding the EENT system. Derm: Skin is dry, Skin is pale, Skin temperature is warm Bruising that is dark purple, green, yellow, on right side of forehead Decubitus located on sacrum is stage I. Musculoskeletal: Range of motion: intact in all extremities, Pt's reports pt is normally ambulatory with walker. 11:15 Reassessment: Pt's HR fluctuating from A-fib at 75 to A-fib with RVR at 180 bpm. Pt aa5 shaking and difficult to obtain repeat EKG due to pt shaking, A-fib with RVR at 180 bpm verified by palpating radial pulse, radial pulse 3+ fast and irregular that is intermittent. Fluctuating between A-fib to A-fib with RVR occurred for approximately 10 minutes after receiving pt from NIKOLE Durham. Pt's HR now A-fib at 80bpm. . 11:30 Neuro: Level of Consciousness is awake, alert, obeys commands, Oriented to person, aa5 place, situation. Cardiovascular: Rhythm is A-fib, HR continues to be <102 bpm. Respiratory: Airway is patent Respiratory effort is even, unlabored, Respiratory pattern is regular, symmetrical. Derm: Skin is dry, Skin is pale, Skin temperature is warm. 12:00 Neuro: Level of Consciousness is awake, alert, obeys commands, Oriented to person, aa5 place, situation. Respiratory: Airway is patent Respiratory effort is even, unlabored, Respiratory pattern is regular, symmetrical. Derm: Skin is dry, Skin is pale, Skin temperature is warm. 12:00 Cardiovascular: Rhythm is atrial fibrillation. aa5 12:30 Reassessment: Pt cleaned of stool, clean brief applied. . aa5 12:50 Neuro: Level of Consciousness is awake, alert, obeys commands, Oriented to person, aa5 place, situation. Respiratory: Airway is patent Respiratory effort is even, unlabored, Respiratory pattern is regular, symmetrical. Derm: Skin is dry, Skin is pale, Skin temperature is warm. 12:55 Reassessment: Pt to CT via stretcher . aa5 13:55 Reassessment: Pt back from CT angio, nuclear medicine technician reports IV infiltrated at the end of the aa5 CT angio. . 14:00 Reassessment: planetarium technician at bedside attempting repeat lactate blood draw. . aa5 14:00 Neuro: Level of Consciousness is awake, alert, obeys commands, Oriented to person, aa5 place, situation. Respiratory: Airway is patent Respiratory effort is even, unlabored, Respiratory pattern is regular, symmetrical. Derm: Skin is dry, Skin is pale, Skin temperature is warm. 14:00 Cardiovascular: Rhythm is atrial fibrillation. aa5 Vital Signs: 09:42 BP 99 / 61; Pulse 86; Resp 16; Temp 98.1(O); Weight 74.84 kg (R); Height 5 ft. 8 in. tw2 (172.72 cm); Pain 0/10; 09:42 Pulse Ox 100% on R/A; tw2 10:00 Pulse 128; tw2 10:16 Pulse 158; tw2 10:21 BP 110 / 84; Pulse 141; Resp 16; Pulse Ox 95% on R/A; tw2 10:23 BP 93 / 53; Pulse 147; Resp 18; Pulse Ox 96% ; tw2 10:28 BP 94 / 39; Pulse 145; Resp 17; Pulse Ox 95% on R/A; tw2 10:32 BP 106 / 46; Pulse 144; Resp 20; Pulse Ox 100% on R/A; tw2 10:38 BP 109 / 55; Pulse 89; Resp 14; Pulse Ox 100% on R/A; tw2 10:48 BP 101 / 60; Pulse 111; Resp 16; Pulse Ox 98% on R/A; tw2 10:51 Pulse 194; tw2 10:51 Pulse 155; tw2 10:51 Pulse 148; tw2 10:51 BP 102 / 70; Pulse 108; tw2 11:07 BP 134 / 75; Pulse 91; Resp 16 S; Pulse Ox 100% on R/A; aa5 11:10 Pulse 180; aa5 11:20 BP 112 / 68; Pulse 102; Resp 14 S; Pulse Ox 100% on R/A; aa5 11:40 BP 112 / 61; Pulse 85; Resp 16 S; Pulse Ox 100% on R/A; aa5 12:00 BP 101 / 41; Pulse 79; Resp 16 S; Temp 98.3(O); Pulse Ox 99% on R/A; aa5 12:40 BP 101 / 58; Pulse 78; aa5 13:30 BP 108 / 59; Pulse 78; Resp 14 S; Pulse Ox 100% on R/A; aa5 14:30 BP 105 / 60; Pulse 74; Resp 16 S; Temp 98.0(O); Pulse Ox 100% on R/A; aa5 09:42 Body Mass Index 25.09 (74.84 kg, 172.72 cm) tw2 10:00 provider notified and at bedside tw2 10:16 provider at bedside tw2 10:23 prvider aware tw2 10:28 provider notified tw2 10:51 provider notified tw2 ED Course: 09:29 Patient arrived in ED. as 09:29 Justin Cordero MD is Private Physician. as 09:32 Placed in gown. Bed in low position. Side rails up X2. Adult w/ patient. Cardiac tw2 monitor on. Pulse ox on. NIBP on. Warm blanket given. 09:41 Marva Cuevas RN is Primary Nurse. tw2 09:42 Jeff Bar MD is Attending Physician. ps1 09:46 Triage completed. tw2 09:46 Arm band placed on. tw2 10:13 Initial lab(s) drawn, by me, sent to lab. Inserted saline lock: 20 gauge in left iw antecubital area, using aseptic technique. Blood collected. 10:16 Pacheco cath inserted, using sterile technique, 18 Fr., by me, balloon inflated, returned tw2 clear yellow urine. Patient tolerated well. 10:48 XRAY Chest (1 view) In Process Unspecified. EDMS 11:07 Report given to NIKOLE Cobb. tw2 11:35 Scott Hughes DO is Hospitalizing Provider. ps1 13:12 COVID swab sent to lab. aa5 13:55 intact, bleeding controlled, Pressure dressing applied, 20G to L AC dc'd due to aa5 swelling after CT angio. 14:30 Inserted saline lock: 20 gauge in right antecubital area, using aseptic technique. iw 14:50 No provider procedures requiring assistance completed. aa5 Administered Medications: 10:07 Drug: NS 0.9% 1000 ml Route: IV; Rate: 1 bolus; Site: left antecubital; tw2 11:15 Follow up: IV Status: Completed infusion; IV Intake: 1000ml aa5 10:07 Drug: Cardizem 10 mg Route: IVP; Site: left antecubital; tw2 10:54 Follow up: Response: No adverse reaction; No change in condition tw2 10:54 Drug: Cardizem 10 mg Route: IVP; Site: left antecubital; tw2 11:00 Follow up: Response: No adverse reaction tw2 10:55 Drug: Digoxin 0.5 mg Route: IVP; Site: left antecubital; tw2 10:56 Follow up: Response: No adverse reaction tw2 11:52 Not Given (Per Dr. Hughes): Cardizem 5 mg/hr IV at calculated rate continuous; aa5 (standard dilution 125 mg diltiazem mixed in 100mL NS; final concentration 1mg/mL) Intake: 11:15 IV: 1000ml; Total: 1000ml. aa5 Outcome: 11:36 Decision to Hospitalize by Provider. ps1 14:50 Admitted to Tele accompanied by tech, via stretcher, with chart, Report called to celestino Mckeon RN 14:50 Condition: stable 14:50 Discharge instructions given to patient, significant other, Instructed on the need for admit, Demonstrated understanding of instructions. 15:15 Patient left the ED. [facility] Signatures: Dispatcher [employer] EDPilar Vargas as Esther DeL eon, RN RN iw Tatiana Herrera RN RN aa5 Marva Cuevas RN RN tw2 Jeff Bar MD MD ps1 Corrections: (The following items were deleted from the chart) 10:32 10:28 BP 94 / 39; Pulse 145bpm; Resp 17bpm; Pulse Ox 95% RA; provider notified and tw2 medicated as ordered.; tw2 14:27 11:10 General: Appears comfortable, Behavior is calm, cooperative, [facility] 14:54 11:10 Derm: Skin is dry, Skin is pale, Skin temperature is warm [place] [id number] 15:35 15:23 Patient left the ED. [facility]
--- NOTE | 2020-09-18 12:51 | P.HP ---
Certification for Inpatient Patient admitted to: Inpatient With expected LOS: >2 Midnights Patient will require the following post-hospital care: Longterm Practitioner: I am a practitioner with admitting privileges, knowledge of patient current condition, hospital course, and medical plan of care. Services: Services provided to patient in accordance with Admission requirements found in Title 42 Section 412.3 of the Code of Federal Regulations Patient History Date of Service: 09/18/20 Primary Care Provider: Dr. Cordero; Nephrology-Dr. Yang; Oncology-Dr. Kaur Reason for admission: Frequent fall History of Present Illness: 80-year-old female with history of hypertension, hypothyroidism, and history of rectal cancer. Patient presented to the emergency room with increased falls. Patient was hospitalized about 2 months ago for bowel obstruction. She required surgery at that time. brought the patient to the ER due to increased falls. She has had poor appetite over the past week. Multiple falls have occurred. She denies any significant chest pain, shortness of breath. She denies any fever, chills, nausea or vomiting. She is unsure why she has decreased appetite. Patient reports regular bowel movement. No dysuria noted. In the ER patient was evaluated. Patient was found to be in atrial fibrillation. Blood pressure and heart rate initially within normal range. Heart rate would go up into the 140s to 150s. Patient was given IV fluid bolus along with digoxin and Cardizem 10 mg x2.CBC shows a white count of 8.4, hemoglobin 9.1. Sodium 137, potassium 3.7. BUN of 21, creatinine 1.95 with a GFR of 25. Glucose 62. Lactic acid 2.3. Pro calcitonin unremarkable. Calcium 3.3. Magnesium 1.4. Urinalysis shows no bacteria. Chest x-ray unremarkable. Patient admitted for further evaluation. When I saw the patient ER, blood pressure stable at this time. Heart rate much improved in within normal range. Patient still in atrial fibrillation. AFib is new for the patient. Allergies No Known Allergies Allergy (Verified 06/11/20 23:00) Home medications list reviewed: Yes Home Medications: Latanoprost [Xalatan] 1 drops OP DAILY 01/02/12 Multi-VIT,(RENAL) [Centrum Silver] 1 each PO DAILY 01/02/12 Thornton-3 Fatty Acids/Fish Oil [Fish Oil 1,000 mg Softgel] 1 each PO DAILY 08/29/14 Vitamin E [Vitamin E*] 400 iu PO DAILY 08/29/14 Levothyroxine [Synthroid*] 50 mcg PO DAILY 06/12/20 Pravastatin Sodium [Pravachol] 20 mg PO DAILY 06/12/20 Ensure High Protein 237 ml PO BID #60 can 06/29/20 Hydrocortisone Oint [Cortizone 1% Ointment*] 1 appl TOP TID PRN #1 tube 06/29/20 Lactobacillus Acidophilus [Acidophilus Lactobacilli] 1 each PO TID #90 capsule 06/29/20 Metoprolol Tartrate [Lopressor*] 25 mg PO BID 6AM 6PM #60 tab 06/29/20 Vancomycin Oral Soln [Vancocin HCl*] 2.5 ml PO Q6HR #1 bottle 06/29/20 - Past Medical/Surgical History Diabetic: No -: Hypertension -: Colon Ca 2012 Chemo/radiation -: Hypothyroidism -: Hyperlipidemia -: Hysterectomy -: Tubal ligation -: Port placement and removal -: Small-bowel resection with anastomosis Psychosocial/ Personal History: Patient lives at home with her - Family History Family History: Reviewed- Non-Contributory - Social History Smoking Status: Never smoker Alcohol use: No CD- Drugs: No Caffeine use: No Place of Residence: Home Review of Systems General: Weakness, As per HPI Eyes: Unremarkable ENT: Unremarkable Respiratory: Unremarkable Cardiovascular: Unremarkable Gastrointestinal: Unremarkable Genitourinary: Unremarkable Musculoskeletal: As per HPI Integumentary: Bruising Neurological: Weakness, As per HPI Lymphatics: Unremarkable Physical Examination - Physical Exam General: Alert, In no apparent distress, Oriented x3, Cooperative, Cachectic HEENT: Atraumatic, Other (Dry mucous membranes) Neck: Supple Respiratory: Clear to auscultation bilaterally, Normal air movement Cardiovascular: Irregular heart rate/rhythm (AFib rate controlled) Gastrointestinal: Normal bowel sounds, Soft and benign, Non-distended, No ascites, No tenderness, No masses, No rebound, No guarding Musculoskeletal: No erythema, No tenderness, No warmth Integumentary: No erythema, No warmth, No cyanosis, Tenderness/swelling (1-2 + pitting edema to the lower extremity) Neurological: Normal speech, Normal strength at 5/5 x4 extr, Normal tone, Normal affect Urinary: Pacheco catheter - Studies Laboratory Data (last 24 hrs) 09/18/20 10:09: PT 16.7 H, INR 1.43 09/18/20 10:09: WBC 8.4, Hgb 9.1 L, Hct 27.4 L, Plt Count 135 L 09/18/20 10:09: Sodium 137, Potassium 3.7, BUN 21 H, Creatinine 1.95 H, Glucose 62 L, Magnesium 1.6 L D, Total Bilirubin 0.4, AST 67 H, ALT 48, Alkaline Phosphatase 232 H Assessment and Plan - Plan Impression: Multiple falls likely from dehydration with noted acute on chronic renal failure stage 4 New onset atrial fibrillation with RVR Hypertension Hypothyroidism Hyperlipidemia Anemia likely of chronic disease Mild protein malnutrition History of colon cancer Plan: Patient will be admitted for further evaluation. Case discussed in detail with cardiology. Will continue with metoprolol. Will also provide digoxin. Will start Lovenox for atrial fibrillation. Will have pharmacy monitor and adjust. Will start IV fluids. Patient has edema to the lower extremities so will add some Lasix. Will consult nephrology for further evaluation and recommendations. Electrolyte protocol in place. If the patient persists in atrial fibrillation will consider switching to sotalol tomorrow. Cardiology does not want a use Cardizem which was given in the emergency room. Will check tsh. Will check echocardiogram. Continue home medication including levothyroxine, pravastatin. Will continue to monitor and assess closely. Will have physical therapy assess ambulation tomorrow. Will consult social security specialist to arrange for skilled placement at discharge. Await further recommendations from cardiology and nephrology. Anticipate improvement over the next 2-3 days. Advanced directives address. Patient is full code. Advanced care planning also address. Both patient and agree with skilled placement. Discharge Plan: Other (senior living facility) Plan to discharge in: Greater than 2 days - Advance Directives Does patient have a Living Will: No Does patient have a Durable POA for Healthcare: Yes - Code Status/Comfort Care Code Status Assessed: Yes (Patient is full code) Time Spent Managing Pts Care (In Minutes): 55
--- NOTE | 2020-09-18 13:12 | RAD REPORT ---
EXAM DESCRIPTION: CT - [id number] - 09/18/2020 1:02 pm CLINICAL HISTORY: Trauma, head and neck injury. repeat falls COMPARISON: No comparisons TECHNIQUE: Axial 5 mm thick images of the head were obtained. Axial 2 mm thick images of the cervical spine were obtained with sagittal and coronal reconstruction images generated and reviewed. All CT scans are performed using dose optimization technique as appropriate and may include automated exposure control or mA/KV adjustment according to patient size. FINDINGS: CT HEAD WITHOUT CONTRAST: No acute hemorrhage, hydrocephalus or extra-axial collection is identified. Mild brain atrophy. No ar eas of brain edema or midline shift. The paranasal sinuses and mastoids are clear.The calvarium is intact. CT CERVICAL SPINE WITHOUT CONTRAST: No fracture or subluxation.Midcervical degenerative changes are present with prominent posterior oste ophyte/ disc complex at C5-6.No prevertebral soft tissues swelling is identified. Bilateral pleural e ffusions noted. IMPRESSION: No acute intracranial or cervical spine findings.
--- NOTE | 2020-09-18 14:16 | RAD REPORT ---
EXAM DESCRIPTION: CT - Neck Angio - 09/18/2020 2:03 pm CLINICAL HISTORY: strke like symptoms Headache, drowsiness, CVA symptomology COMPARISON: Head C Spine Mpr Wo Con dated 09/18/2020; Head angio dated 09/18/2020 TECHNIQUE: CT angiography of the neck vessels was performed with MIPs. All CT scans are performed using dose optimization technique as appropriate and may include automated exposure control or mA/KV adjustment according to patient size. FINDINGS: A left aortic arch is identified with normal three vessel configuration of the great vesse ls. No significant flow abnormality is seen of the common carotid bilaterally. Mild to moderate carotid bulb atherosclerotic plaquing is seen. Proximal right carotid bulb stenosis caused by an mixed plaquing is noted estimated at 70-80 % based on NASCET criteria. Mild stenosis of the left carotid bulb is also present, estimated less 50%. Normal flow is seen within both vertebral arteries. Bilateral pleural effusions are seen. IMPRESSION: Mixed plaque in the right proximal ICA results in significant right carotid bulb stenosi s estimated at 80 % based on NASCET criteria.
--- NOTE | 2020-09-18 14:17 | RAD REPORT ---
EXAM DESCRIPTION: CT - Head angio - 09/18/2020 1:53 pm CLINICAL HISTORY: stroke like symptoms Headache, drowsiness, CVA symptomology COMPARISON: No comparisons TECHNIQUE: CT angiography of the head was performed with MIPs. All CT scans are performed using dose optimization technique as appropriate and may include automated exposure control or mA/KV adjustment according to patient size. FINDINGS: No evidence of aneurysm is detected. No flow-limiting stenosis or vascular malformation id entified. Antegrade flow is seen in the vertebral arteries. The vertebral arteries are codominant. The visualized dural venous sinuses are patent. IMPRESSION: No significant flow abnormality is detected.
[2020-09-18] MEDS ORDERED: ONDANSETRON 4 MG/2 ML VIAL IV PRN (15:59)
[2020-09-18] MEDS ORDERED: ACETAMINOPHEN 500 MG TAB PO PRN (15:59)
[2020-09-18] MEDS ORDERED: NA CHLORIDE 0.9% 1,000 ML IV SCH (15:59)
[2020-09-18 16:20] VITALS: BMI 28.1
--- NOTE | 2020-09-18 18:12 | EKG ---
Test Date: 2020-09-18 Test Time: 09:50:00 Compliance Lead: FIDEL MEASUREMENT RESULTS: Intervals: Rate: 78 [place]: QRSD: 78 QT: 470 QTc: 535 [place]: P: [place]: QRS: 58 T: 64 INTERPRETIVE STATEMENTS: Atrial flutter with variable AV block with premature ventricular or aberrantly conducted complexes Nonspecific ST and T wave abnormality Prolonged QT Abnormal ECG Compared to ECG 06/11/2020 18:52:50 Ventricular premature complex(es) now present ST (T wave) deviation now present Prolonged QT interval now present Sinus rhythm no longer present Electronically Signed On 09-18-20 18:11:16 HOME HEALTH CARE COORDINATOR by Nir Willis
[2020-09-18] MEDS: ENOXAPARIN 30 MG/0.3 ML SQ SCH (18:32)
[2020-09-18] MEDS: METOPROLOL TAR 25 MG TAB PO SCH (18:32)
[2020-09-18 18:56] LABS: CKMB Creatine Kinase MB 2.5 ng/mL (0.3-3.6); Troponin I 0.03 ng/mL (0.0-0.045)
[2020-09-18] MEDS: ATORVASTATIN 10 MG TAB PO SCH (22:05)
[2020-09-19 01:10] LABS: CKMB Creatine Kinase MB 1.9 ng/mL (0.3-3.6); Troponin I 0.04 ng/mL (0.0-0.045)
--- NOTE | 2020-09-19 04:47 | CON ---
Date of Consultation: 09/18/2020 Reason For Consultation: Atrial fibrillation. History Of Present Illness: Ms. Galindo is 80-year-old who has a history of hypertension. Came in wi th multiple falls over the last 3 weeks. She had been admitted with abdominal pain and placed on ant ibiotics. The patient's family has stated that she is unable to do her daily activities because of m ultiple falls, had recently had an injury on her right head with contusion and discoloration. Main c omplaint as far as the patient is concerned was weakness. When she came to the emergency room, she w as found to be in atrial fibrillation, rate of 141, blood pressure is 110/84. She has an oxygen satu ration of 95% on room air. She herself denied any palpitation or syncope or fever or chills or chest pain. No actual nausea or vomiting or diaphoresis. Denied PND, orthopnea, or pedal edema. Main co mplaint was weakness. Past Medical History: Hemorrhoidal cancer and hypertension. Allergies: NONE. Medications: At home were unavailable. Review of Systems: Negative. Social History: Negative. Family History: Noncontributory. Physical Examination: General: When I first saw her, she was in atrial fibrillation with a rate of 95, blood pressure 102/ 61, O2 saturation was 92% on room air. HEENT: Negative. Neck: Supple with no bruit. Chest: Clear to auscultation and percussion. Cardiac: Revealed an irregularly irregular rhythm and rate. No murmurs, gallops, or rubs. Abdomen: Benign. Extremities: Revealed no clubbing, cyanosis, or edema. Diagnostic Data: Creatinine was 1.95. Her hemoglobin was 9.1. Her CPK was elevated at 252 with a n egative MB. Her troponins are negative. BNP was 4862. EKG showed atrial flutter with variable AV b lock. Chest x-ray shows chronic opacification in the parenchymal base. She had a neck CTA and a hea d CTA, they were still pending. Had cervical spine CT scan, showed no acute changes. Impression And Plan: Probable paroxysmal atrial fibrillation and flutter. Rate is now controlled. Echocardiogram is pending. She is presently on digoxin daily and metoprolol 25 mg b.i.d. She is als o on Lovenox. I think in her case I would stick with rate control and an aspirin and I think she is a candidate for anticoagulation considering her multiple falls. I would continue the digoxin and met oprolol. We will see what her echocardiogram shows. Her MRA and CTA of the neck and head are pendin g and we will see what those show as well. Her other issues include dyslipidemia and hypothyroidism, for which she is taking Lipitor and Synthroid respectively. I will continue to follow her along fabian Hughes. ASHOK/JASON Voice ID: [id number] Report ID: [id number]
[2020-09-19] MEDS: METOPROLOL TAR 25 MG TAB PO SCH ×2 (06:00→16:40)
[2020-09-19] MEDS: LEVOTHYROXINE SOD 0.05 MG TABLET PO SCH (06:08)
[2020-09-19] MEDS ORDERED: NA CHLORIDE 0.9% 500 ML IV ONE ×2 (08:07→12:34)
[2020-09-19] MEDS ORDERED: VANCOMYCIN 1 GM in NA CHLORIDE 0.9% 500 ML IVPB SCH (08:08)
--- NOTE | 2020-09-19 08:15 | P.PN ---
Subjective Date of Service: 09/19/20 Primary Care Provider: Dr. Cordero; Nephrology-Dr. Yang; Oncology-Dr. Kaur Chief Complaint: Frequent fall Subjective: Other (Patient alert. Cooperative. Patient afebrile. Blood pressure 106/52.) Physical Examination - Vital Signs Temperature: 98.2 F Blood Pressure: 106/52 Pulse: 70 Respirations: 20 Pulse Ox (%): 95 - Physical Exam General: Alert, In no apparent distress, Cooperative HEENT: Atraumatic Neck: Supple Respiratory: Clear to auscultation bilaterally, Normal air movement Cardiovascular: Irregular heart rate/rhythm (AFib rate controlled) Gastrointestinal: No ascites, No tenderness, No masses, No rebound, No guarding Musculoskeletal: No erythema, No tenderness, No warmth Integumentary: Other (Some edema to the lower extremities and upper extremities) Neurological: Normal speech, Normal strength at 5/5 x4 extr, Normal tone, Normal affect - Studies Laboratory Data (last 24 hrs) 09/18/20 10:09: PT 16.7 H, INR 1.43 09/18/20 10:09: WBC 8.4, Hgb 9.1 L, Hct 27.4 L, Plt Count 135 L 09/18/20 10:09: Sodium 137, Potassium 3.7, BUN 21 H, Creatinine 1.95 H, Glucose 62 L, Magnesium 1.6 L D, Total Bilirubin 0.4, AST 67 H, ALT 48, Alkaline Phosphatase 232 H Microbiology Data (last 24 hrs): 09/18/20 10:25 Blood - Blood Blood Culture Gram Stain - Final 09/18/20 10:09 Blood - Blood Gram Stain - Final 09/18/20 11:21 Nasopharnyx Coronavirus COVID-19 PCR - Final Medications List Reviewed: Yes Assessment & Plan Discharge Plan: Home Plan to discharge in: Greater than 2 days Physician Review Additional Text: Impression: Multiple falls likely from dehydration with noted acute on chronic renal failure stage 4 Hypotension possible sepsis with UTI and bacteremia New onset atrial fibrillation with RVR Hypertension Hypothyroidism Hyperlipidemia Anemia likely of chronic disease Mild protein malnutrition History of colon cancer Plan: Multiple falls likely from dehydration with noted acute on chronic renal failure stage 4: Blood culture Gram-negative luis daniel with urine culture also showing Gram negative luis daniel. Suspect early sepsis. Will give fluid bolus. Increase fluids. Will start Rocephin now all. Will monitor closely. Will discuss with nephrology. Continue to reassess. Patient medically stable at this time. Patient would benefit with skilled placement at discharge. Will consult social olga conroy. agrees with plan of care. Hypotension possible sepsis with UTI and bacteremia: Rocephin started. Previous cultures reviewed. Will give fluid bolus and monitor closely. New onset atrial fibrillation with RVR: Patient on metoprolol and digoxin. Spoke with Cardiology today. Patient not a candidate for chronic anti coagulation therapy. He recommends rate control medication-metoprolol and aspirin. Will continue to monitor closely. Hypertension: Hold blood pressure medication at this time due to low blood pressure Hypothyroidism: Will need to restart home medication. Hyperlipidemia: Will need to restart home medication. Anemia likely of chronic disease: Will monitor this closely. Mild protein malnutrition: Will consult dietary to further evaluate and make recommendations. History of colon cancer: Overall stable. Patient recently hospitalized for small-bowel obstruction requiring resection of colon. Time Spent Managing Pts Care (In Minutes): 55
[2020-09-19] MEDS: FOLIC ACID 1 MG TABLET PO SCH (08:29)
[2020-09-19] MEDS: CEFTRIAXONE/SWI 1gm 1 GM/10 ML SYR IV SCH (08:31)
[2020-09-19] MEDS: FUROSEMIDE 20 MG TABLET PO SCH (08:34)
[2020-09-19] MEDS: DIGOXIN 0.25 MG TABLET PO SCH (08:34)
[2020-09-19] MEDS: ASPIRIN EC 81 MG TAB PO SCH (08:34)
[2020-09-19] MEDS: ENOXAPARIN 30 MG/0.3 ML SQ SCH (08:35)
--- NOTE | 2020-09-19 08:35 | PN ---
Date of Progress Note: 09/19/2020 Subjective: Ms. Galindo has been seen for atrial fibrillation. Today, she is in atrial fibrillation. Heart rate is about 60. Echocardiogram is pending. The patient is a very poor candidate for antic oagulation. I think she should be on aspirin, beta-edson. I think we should added rate control an d an aspirin as it go rather than anticoagulation and cardioversion. She is at high risk for bleedin g and multiple fall. We will see what the echocardiogram shows, but from my standpoint, she can be o n beta-blockers, aspirin, and go home whenever it is okay with Dr. Hughes. ASHOK/JASON Voice ID: [id number] Report ID: [id number]
[2020-09-19] MEDS: THIAMINE HCL 100 MG TABLET PO SCH (08:37)
[2020-09-19] MEDS ORDERED: CEFTRIAXONE 1 GM/NS 50 ML 1 GM/50 ML BAG IV SCH (09:00)
[2020-09-19] MEDS ORDERED: DIGOXIN 0.25 MG TABLET PO SCH (09:00)
[2020-09-19] MEDS ORDERED: CEFTRIAXONE/SWI 1gm 1 GM/10 ML SYR IV SCH (09:00)
[2020-09-19] MEDS ORDERED: FUROSEMIDE 20 MG TABLET PO SCH (09:00)
[2020-09-19] MEDS: NA CHLORIDE 0.9% 1,000 ML IV SCH ×3 (09:20→23:30)
[2020-09-19] MEDS ORDERED: NA CHLORIDE 0.9% 1,000 ML IV ONE (12:06)
--- NOTE | 2020-09-19 12:06 | P.INFCA ---
Sepsis Focused Assessment - Focused Assessment Complete? Sepsis Focused Assessment Completed?: Yes - Sepsis Screen Result Severe Sepsis: Positive Septic Shock: Negative - Evaluation Current stage of sepsis: Severe sepsis - Vital Signs Reviewed: Yes Temperature: 98.2 F Heart rate: 65 Blood Pressure: 108/64 Respiratory Rate: 15 O2 Sat by Pulse Oximetry: 97 - Examination Date exam was performed: 09/19/20 Time exam was performed: 12:05 Heart: Irregular rhythm, Other (AFib rate controlled) Lungs: Clear bilaterally Peripheral pulses: 2+ Slightly diminished Peripheral pulse location: Pedal Capillary refill: <2 Seconds Skin examination: Other (Edema to the lower extremities and hands. Patient given 750 cc bolus due to low blood pressure. Repeat blood pressure was around 100 systolic. Patient Re checked again now all. Blood pressure around 80 systolic. Will give another L bolus. Will check to see if the patient has gotten 30 milligram/kilogram bolus thus far. Will transfer patient to the ICU to monitor closely. Continue with aggressive fluids. Patient may require Levophed if blood pressure not improved.)
[2020-09-19] MEDS ORDERED: NA CHLORIDE 0.9% 1,000 ML ONE ×2 (13:46→23:36)
[2020-09-19] MEDS ORDERED: ALBUMIN HUMAN 25% 100 ML IV ONE (14:00)
--- NOTE | 2020-09-19 14:32 | P.INFCA ---
Sepsis Focused Assessment - Focused Assessment Complete? Sepsis Focused Assessment Completed?: Yes - Sepsis Screen Result Severe Sepsis: Negative Septic Shock: Negative - Evaluation Reason for ruling out sepsis: Patient no longer severe sepsis. Blood pressure controlled. Patient will - Vital Signs Reviewed: Yes Temperature: 98.2 F Heart rate: 65 Blood Pressure: 108/64 Respiratory Rate: 15 O2 Sat by Pulse Oximetry: 97 - Examination Heart: Irregular rhythm Lungs: Clear bilaterally Peripheral pulses: 3+ Normal Peripheral pulse location: Pedal Capillary refill: <2 Seconds Skin examination: Other (Patient with increased edema. Patient has been given 30 milligram/kilogram of IV fluids thus far. Continue with maintenance. Spoke with nephrology. Nephrology will add albumin due to increasing edema to the lower extremities. Continue Rocephin. Will monitor closely. Blood cultures and urine cultures pending. Patient likely with sepsis but no severe sepsis.)
--- NOTE | 2020-09-19 14:35 | CON ---
Date of Consultation: 09/19/2020 Reason For Consultation: Acute renal failure. History Of Present Illness: Ms. Galindo is an 80-year-old female with past medical history significan t for history of colon cancer and hypertension, rectal cancer, presented to the emergency room with i ncreased falls. The patient was hospitalized back in May with acute renal failure and bowel obstr uction. She required surgery and she was brought back into the hospital by her because of in creased falling. She also reported poor appetite, decreased p.o. intake, and multiple falls. She wa s found to have atrial fibrillation, which was controlled with digoxin and Cardizem. She has been in itially admitted to the floor; however, she has been transferred back to the ICU at this time just be fore I saw the patient because of severe persistent hypotension. She has received a total of 2.8 L o f IV fluids and still continued to be hypotensive because of which she was transferred to the ICU. S he is currently getting normal saline at 100 cc an hour. The patient is confused and she is unable t o give much details on her history at this time. Past Medical History: Significant for history of colon cancer, status post chemo and radiation, hype rtension, hypothyroidism, hyperlipidemia, hysterectomy, tubal ligation, small bowel resection with an astomosis. Social History: The patient lives at home with her . No history of smoking or alcohol use re ported. Review of Systems: Positive for weakness, falls, and decreased appetite with poor p.o. intake. Physical Examination: Vital Signs: Showing at this time vital signs of temperature of 98.2, pulse rate of 65, respiratory rate of 15, and blood pressure 108/64. General: She appears cachectic and weak. HEENT: Bruising noted and they are on the right side of the forehead. Heart: Auscultation of the heart reveals irregular rate and rhythm. Lungs: Auscultation of the lungs revealed bilateral equal air entry with diminished breath sounds at bases. Extremities: The patient has anasarca noted in her bilateral lower extremities and upper extremities with weeping and noted to have dressing on bilateral upper extremities because of increased weeping onto her skin. Laboratory Data: At this time showing still pending, but from yesterday are showing sodium of 137, p otassium of 3.7, chloride of 101, BUN of 21, and creatinine of 1.95. Lactic acid was 2.3, improved t o 2.1. Calcium was 7.3 and magnesium was 1.6. LFTs showed elevated AST of 67, alkaline phosphatase of 232, albumin of 1, and TSH of 0.47. Urinalysis showed 3+ blood, 1+ leukocyte esterase, and 1+ pro tein. INR showed 1.4. She had a chest x-ray done at the time of admission, which was showing no pina dence of any pulmonary infiltrates. She has chronic pleural and parenchymal opacities, which were si milar in appearance compared to May of this year. She had a CT scan of her cervical spine, neck a nd head. Medications: Current medications have been reviewed in detail. Impression: 1.Acute renal failure secondary to possibly from acute tubular necrosis and dehydration. The patien t is currently very hypotensive. She is receiving IV fluids with normal saline at 100 cc an hour. I would not like to increase IV fluids because of severe anasarca. I will go ahead and start her on s ome albumin and see how she does to improve her volume status. 2.Multiple falls, likely from dehydration. The patient also has bruising noted, likely secondary to hypotension. 3.New onset atrial fibrillation with rapid ventricular rate. The patient is rate controlled with me toprolol and digoxin. She is not a candidate for chronic anticoagulation per Cardiology recommendati ons. The plan is to correct her dehydration to see if that would improve her atrial fibrillation as well. 4.Hypothyroidism, currently stable. 5.Anemia secondary to chronic disease. 6.Severe malnutrition with severely low serum albumin. The patient has had multiple bowel surgeries , most recently the one back in May. Likely, this is contributing to her severe malnutrition, but we will need to rule out any nephrotic syndrome. We will request a protein creatinine ratio for fur ther evaluation. Plan: Overall, the patient's condition is very guarded. We will go ahead and try to correct her deh ydration with albumin and IV fluids at this time. Continue to monitor her labs closely and we will f jaylow up. Thank you very much for this consultation. Please do not hesitate to call us with any questions or c oncerns. VV/MODL Voice ID: [id number] Report ID: [id number]
--- NOTE | 2020-09-19 14:36 | ECHO ---
HEIGHT: 5 ft 7 in WEIGHT: 180 lb 0 oz DATE OF STUDY: 09/19/[address]: Scott Hughes DO 2-DIMENSIONAL: YES M.MODE: YES DOPPLER: YES COLOR FLOW: YES TDS: PORTABLE: DEFINITY: BUBBLE STUDY: DIAGNOSIS: ATRIAL FIBRILLATION, HYPERTENSION CARDIAC HISTORY: CATHERIZATION: NO SURGERY: NO PROSTHETIC VALVE: NO PACEMAKER: NO MEASUREMENTS (cm) DIASTOLIC (NORMALS) SYSTOLIC (NORMALS) IVSd 0.9 (0.6-1.2) LA Diam 2.3 (1.9-4.0) LVEF 65% LVIDd 4.2 (3.5-5.7) LVIDs 2.7 (2.0-3.5) %FS 35% LVPWd 1.0 (0.6-1.2) Ao Diam 2.4 (2.0-3.7) 2 DIMENSIONAL ASSESSMENT: RIGHT ATRIUM: NORMAL LEFT ATRIUM: NORMAL RIGHT VENTRICLE: NORMAL LEFT VENTRICLE: NORMAL TRICUSPID VALVE: MILD TRICUSPID REGURGITATION MITRAL VALVE: MILD MITRAL REGURGITATION PULMONIC VALVE: NORMAL AORTIC VALVE: NORMAL PERICARDIAL EFFUSION: NONE AORTIC ROOT: NORMAL LEFT VENTRICULAR WALL MOTION: NORMAL DOPPLER/COLOR FLOW: COMMENTS: NORMAL LEFT VENTRICULAR EJECTION FRACTION 55-60% WITH NORAML WALL MOTION. MILD TRICUSPID REGURGITATION, MILD MITRAL REGURGITATION. RIGHT VENTRICULAR SYSTOLIC PRESSURE IS 32 mmHg PLUS RIGHT ATRIAL PRESSURE. TECHNOLOGIST: SHAR EM
[2020-09-19 16:00] LABS: Bicarbonate 21 mmol/L (21-32); Potassium 3.9 mmol/L (3.5-5.1); Sodium Level 136 mmol/L (136-145)
[2020-09-19 16:01] LABS: ALT/SGPT 46 U/L (12-78); AST/SGOT 68 U/L (15-37); Alkaline Phosphatase 203 U/L (45-117); BUN Blood Urea Nitrogen 20 mg/dL (7-18); Bilirubin Total 0.3 mg/dL (0.2-1.0); Glucose Level 55 mg/dL (74-106)
[2020-09-19 16:02] LABS: Albumin 1.1 g/dL (3.4-5.0); Protein, Total 5.2 g/dL (6.4-8.2)
[2020-09-19] MEDS: ATORVASTATIN 10 MG TAB PO SCH (21:00)
[2020-09-19] MEDS: ENSURE ENLIVE 237 ML CAN PO SCH (21:00)
[2020-09-19] MEDS ORDERED: ATORVASTATIN 10 MG TAB ONE (21:42)
[2020-09-20] MEDS: NA CHLORIDE 0.9% 1,000 ML IV SCH (04:18)
[2020-09-20] MEDS: METOPROLOL TAR 25 MG TAB PO SCH ×2 (05:41→17:17)
[2020-09-20] MEDS: LEVOTHYROXINE SOD 0.05 MG TABLET PO SCH (06:25)
[2020-09-20] MEDS ORDERED: LEVOTHYROXINE SOD 0.05 MG TABLET ONE (06:26)
[2020-09-20] MEDS ORDERED: ALBUMIN HUMAN 25% 200 ML IV ONE (08:58)
[2020-09-20] MEDS: FUROSEMIDE 20 MG TABLET PO SCH (09:00)
[2020-09-20] MEDS: ENSURE ENLIVE 237 ML CAN PO SCH ×2 (09:00→21:00)
--- NOTE | 2020-09-20 09:13 | P.PN ---
Subjective Date of Service: 09/20/20 Primary Care Provider: Dr. Cordero; Nephrology-Dr. Yang; Oncology-Dr. Kaur Chief Complaint: Frequent fall Subjective: Other (Patient stable at this time. Some confusion noted. Patient cooperative. Blood pressure is fluctuating but stable) Physical Examination - Vital Signs Temperature: 97.9 F Blood Pressure: 87/58 Pulse: 77 Respirations: 18 Pulse Ox (%): 95 - Physical Exam General: Alert, Cooperative, Confused HEENT: Other (Bruise to the right forehead) Neck: Supple Respiratory: Clear to auscultation bilaterally Cardiovascular: Irregular heart rate/rhythm (AFib rate controlled) Gastrointestinal: Normal bowel sounds, No tenderness, No masses, No rebound, No guarding Musculoskeletal: No tenderness, No warmth Integumentary: Other (Edema to the lower extremities noted but appear slightly improved) Neurological: Normal speech, Normal strength at 5/5 x4 extr, Normal tone, Other (Some confusion noted) - Studies Microbiology Data (last 24 hrs): 09/18/20 10:25 Catheterized Urine [place] Count - Final >100,000 CFU/ML. 09/18/20 10:25 Catheterized Urine - Final Klebsiella Oxytoca 09/18/20 10:09 Blood - Blood Gram Stain - Final 09/18/20 10:25 Blood - Blood Blood Culture Gram Stain - Final Medications List Reviewed: Yes Assessment & Plan Discharge Plan: Other (senior living facility) Plan to discharge in: Greater than 2 days Physician Review Additional Text: Impression: Multiple falls likely from dehydration with noted acute on chronic renal failure stage 4, possible acute tubular necrosis Hypotension related to sepsis/toxic encephalopathy-UTI(urine culture positive for Klebsiella oxytoca and bacteremia) complicated with severe protein malnutrition, hypoglycemia and anasarca New onset atrial fibrillation Hypertension Hypothyroidism Hyperlipidemia Anemia likely of chronic disease History of colon cancer with recent small-bowel obstruction requiring surgery Multiple falls Plan: Multiple falls likely from dehydration with noted acute on chronic renal failure stage 4, possible acute tubular necrosis: Patient given IV fluid bolus yesterday. Blood pressure has stabilized. Patient to receive PICC line. Continue with IV fluids but will be cautious as recommended by nephrology due to her anasarca. Will give albumin this morning. Renal function slightly improved. Continue to address nutritional status. Patient to be evaluated for nephrotic syndrome. Will discuss further with nephrology. Continue IV antibiotic therapy. Await blood culture results. Patient overall stable. Will continue monitor closely. Patient will require skilled placement at discharge. Hypotension related to sepsis/toxic encephalopathy-UTI(urine culture positive for Klebsiella oxytoca and bacteremia) complicated with severe protein malnutrition, hypoglycemia and anasarca: Patient confused likely from toxic encephalopathy. No severe sepsis noted. Blood pressure stable. Patient received bolus fluids yesterday. Will adjust IV fluids. Continue with IV fluids but cautious as recommended above by nephrology. Patient will get albumin. Continue Rocephin. Await blood culture results. New onset atrial fibrillation: Patient remains on metoprolol and digoxin for rate control. Will adjust metoprolol and get parameters due to low blood pressure. Patient not a candidate for chronic anti coagulation therapy. Patient on DVT prophylaxis-Lovenox. Patient at risk of bleeding with anemia, bruising, therefore will hold off on full-dose anti coagulation therapy. Hypertension: Patient on metoprolol. Continue to hold with parameters in place. Hypothyroidism: Continue medication. Hyperlipidemia: LFTs slightly elevated. Will hold medication at this time. Anemia likely of chronic disease: Patient with chronic anemia. Will monitor appropriately. History of colon cancer: Overall stable. Patient with history of recent small- bowel obstruction requiring surgery. Time Spent Managing Pts Care (In Minutes): 55
[2020-09-20] MEDS ORDERED: THIAMINE HCL 100 MG TABLET ONE (09:15)
[2020-09-20] MEDS ORDERED: FOLIC ACID 1 MG TABLET ONE (09:15)
[2020-09-20] MEDS ORDERED: ASPIRIN EC 81 MG TAB PO ONE (09:15)
[2020-09-20] MEDS ORDERED: ENOXAPARIN 30 MG/0.3 ML SQ ONE (09:16)
[2020-09-20] MEDS ORDERED: CEFTRIAXONE/SWI 1gm 1 GM/10 ML SYR ONE (09:16)
[2020-09-20] MEDS: THIAMINE HCL 100 MG TABLET PO SCH (09:31)
[2020-09-20] MEDS: ASPIRIN EC 81 MG TAB PO SCH (09:31)
[2020-09-20] MEDS: CEFTRIAXONE/SWI 1gm 1 GM/10 ML SYR IV SCH (09:31)
[2020-09-20] MEDS: FOLIC ACID 1 MG TABLET PO SCH (09:31)
[2020-09-20] MEDS: ENOXAPARIN 30 MG/0.3 ML SQ SCH (09:31)
[2020-09-20] MEDS: D5 0.45 NS 1,000 ML IV SCH ×2 (09:55→20:00)
[2020-09-20] MEDS ORDERED: DIGOXIN 0.25 MG TABLET ONE ×2 (10:06→11:19)
[2020-09-20] MEDS ORDERED: D5 0.45 NS 1,000 ML IV ONE (10:06)
[2020-09-20] MEDS: DIGOXIN 0.25 MG TABLET PO SCH (11:10)
[2020-09-20] MEDS ORDERED: SODIUM CHLORIDE 0.9% 10ML INJ IV PRN (12:03)
--- NOTE | 2020-09-20 12:56 | P.PN ---
Subjective Date of Service: 09/20/20 Primary Care Provider: Dr. Cordero; Nephrology-Dr. Yang; Oncology-Dr. Kaur Chief Complaint: Frequent fall patient seen/examined in ER holding. reviewed plan with RN, Giovanna. Patient is looking better, in room with her and feeding her lunch/mash patatoes and some cold tea etc. patient has gotten albumin iv and has more ordered for today. she is now on 1/2 ns with dextrose at 100 ccs/hour. labs were difficult to draw due to her anasarca (patient is intravascularly depleted with clear lungs and dry skin but has 3rd spacing in legs/arms due to low albumin). hg last was around 8. vs improved. bp on my evaluation was up to 110 systolic. hr 75. rr 14/comfortable. lungs cta [facility] regular abd soft ext: anasarca labs pending/patient awaiting picc line. last creatinine 1.7/albumin low/hb low. reviewed. a/p: severe protein /calorie malnutrition. frailty. falls. healing bruise on right forehead. hypotension. anemia/skylar with ? ckd. intravascularly depleted/with 3rd spacing. encourage improved protein intake fall precautions/will benefit from atleast short term PT/rehab improve volume status. agree with 1/2 ns 100ccs/hour and some albumin replacement for short term support. however, if sodium shows to be lower on labs, may consider changing to d5ns for ivf. procrit 10,0000 units (retracrit substitution is ok) once today reviewed plan with patient/ and Rn. Physical Examination - Vital Signs Temperature: 97.9 F Blood Pressure: 90/63 Pulse: 78 Respirations: 18 Pulse Ox (%): 97 - Studies Microbiology Data (last 24 hrs): 09/18/20 10:25 Catheterized Urine [place] Count - Final >100,000 CFU/ML. 09/18/20 10:25 Catheterized Urine - Final Klebsiella Oxytoca 09/18/20 10:09 Blood - Blood Gram Stain - Final 09/18/20 10:25 Blood - Blood Blood Culture Gram Stain - Final Medications List Reviewed: Yes Assessment And Plan Physician Review Additional Text: Impression: Multiple falls likely from dehydration with noted acute on chronic renal failure stage 4, possible acute tubular necrosis Hypotension related to sepsis/toxic encephalopathy-UTI(urine culture positive for Klebsiella oxytoca and bacteremia) complicated with severe protein malnutrition, hypoglycemia and anasarca New onset atrial fibrillation Hypertension Hypothyroidism Hyperlipidemia Anemia likely of chronic disease History of colon cancer with recent small-bowel obstruction requiring surgery Multiple falls Plan: Multiple falls likely from dehydration with noted acute on chronic renal failure stage 4, possible acute tubular necrosis: Patient given IV fluid bolus yesterday. Blood pressure has stabilized. Patient to receive PICC line. Cont inue with IV fluids but will be cautious as recommended by nephrology due to her anasarca. Will give albumin this morning. Renal function slightly improved. Continue to address nutritional status. Patient to be evaluated for nephrotic syndrome. Will discuss further with nephrology. Continue IV antibiotic therapy. Await blood culture results. Patient overall stable. Will continue monitor closely. Patient will require skilled placement at discharge. Hypotension related to sepsis/toxic encephalopathy-UTI(urine culture positive for Klebsiella oxytoca and bacteremia) complicated with severe protein malnutrition, hypoglycemia and anasarca: Patient confused likely from toxic encephalopathy. No severe sepsis noted. Blood pressure stable. Patient received bolus fluids yesterday. Will adjust IV fluids. Continue with IV fluids but cautious as recommended above by nephrology. Patient will get albumin. Continue Rocephin. Await blood culture results. New onset atrial fibrillation: Patient remains on metoprolol and digoxin for rate control. Will adjust metoprolol and get parameters due to low blood pressure. Patient not a candidate for chronic anti coagulation therapy. Patient on DVT prophylaxis-Lovenox. Patient at risk of bleeding with anemia, bruising, therefore will hold off on full-dose anti coagulation therapy. Hypertension: Patient on metoprolol. Continue to hold with parameters in place. Hypothyroidism: Continue medication. Hyperlipidemia: LFTs slightly elevated. Will hold medication at this time. Anemia likely of chronic disease: Patient with chronic anemia. Will monitor appropriately. History of colon cancer: Overall stable. Patient with history of recent small- bowel obstruction requiring surgery.
[2020-09-20] MEDS ORDERED: EPOETIN ALFA-EPBX 10,000 UNIT/ML VIAL SQ SCH (13:00)
[2020-09-20] MEDS ORDERED: PANTOPRAZOLE 40 MG INJ IVP SCH (21:00)
[2020-09-20] MEDS: ATORVASTATIN 10 MG TAB PO SCH (21:30)
[2020-09-21 00:19] LABS: Absolute Lymphocytes (CBC) 4.1 K/uL (0.7-4.9); Basophils % 0.2 % (0-1.3); MPV 10.1 fL (7.6-11.3); RBC Red Blood Cell Count 1.88 M/uL (3.86-4.86)
[2020-09-21 00:21] LABS: Hematocrit 17.6 % (36.0-45.0)
[2020-09-21 00:25] LABS: Bilirubin Total 0.3 mg/dL (0.2-1.0); Magnesium 1.5 mg/dL (1.8-2.4); Potassium 3.5 mmol/L (3.5-5.1); Protein, Total 5.2 g/dL (6.4-8.2)
[2020-09-21] MEDS ORDERED: Magnesium Sulfate 2gm IVPB 2 G/50 ML BAG IV ONE ×2 (03:00→09:00)
[2020-09-21] MEDS ORDERED: NA CHLORIDE 0.9% 250 ML ONE (03:49)
[2020-09-21] MEDS: METOPROLOL TAR 25 MG TAB PO SCH ×2 (05:49→18:00)
[2020-09-21] MEDS: D5 0.45 NS 1,000 ML IV SCH ×3 (06:00→11:05)
[2020-09-21] MEDS: LEVOTHYROXINE SOD 0.05 MG TABLET PO SCH (06:39)
[2020-09-21] MEDS: ENOXAPARIN 30 MG/0.3 ML SQ SCH (08:33)
[2020-09-21] MEDS: ASPIRIN EC 81 MG TAB PO SCH (08:34)
[2020-09-21] MEDS ORDERED: SODIUM CHLORIDE 0.9% 10ML INJ IV PRN (08:39)
[2020-09-21] MEDS: FOLIC ACID 1 MG TABLET PO SCH (08:48)
[2020-09-21] MEDS: THIAMINE HCL 100 MG TABLET PO SCH (08:48)
[2020-09-21] MEDS: ENSURE ENLIVE 237 ML CAN PO SCH ×2 (08:48→21:00)
[2020-09-21] MEDS: DIGOXIN 0.25 MG TABLET PO SCH (08:48)
[2020-09-21] MEDS: FUROSEMIDE 20 MG TABLET PO SCH (08:48)
[2020-09-21] MEDS: CEFTRIAXONE/SWI 1gm 1 GM/10 ML SYR IV SCH (08:53)
[2020-09-21] MEDS ORDERED: FUROSEMIDE 20 MG TABLET ONE (08:59)
[2020-09-21] MEDS ORDERED: DIGOXIN 0.25 MG TABLET ONE (08:59)
[2020-09-21] MEDS ORDERED: THIAMINE HCL 100 MG TABLET ONE (08:59)
[2020-09-21] MEDS ORDERED: CEFTRIAXONE 1000 MG/VIAL ONE (09:00)
[2020-09-21] MEDS ORDERED: FOLIC ACID 1 MG TABLET ONE (09:00)
[2020-09-21] MEDS ORDERED: CEFTRIAXONE/SWI 1gm 1 GM/10 ML SYR ONE (09:07)
[2020-09-21] MEDS ORDERED: PANTOPRAZOLE 40 MG INJ ONE ×2 (09:09→19:56)
[2020-09-21] MEDS: PANTOPRAZOLE 40 MG INJ IVP SCH ×2 (09:17→21:09)
[2020-09-21] MEDS ORDERED: ALBUMIN HUMAN 25% 50 ML IV ONE ×4 (09:18→14:00)
[2020-09-21 09:30] LABS: RBC Red Blood Cell Count 2.54 M/uL (3.86-4.86)
--- NOTE | 2020-09-21 09:34 | P.PN ---
Subjective Date of Service: 09/21/20 Primary Care Provider: Dr. Cordero; Nephrology-Dr. Yang; Oncology-Dr. Kaur Chief Complaint: Frequent fall Subjective: Other (Hemoglobin low this morning. This was a change from yesterday. Hemoglobin 9.1 on 09/18. Lab had difficulty in obtaining lab due to anasarca. Last night hemoglobin 5.7. Patient had mild bleeding to this stool. Nonmelanotic. Patient with history of hemorrhoids.) Physical Examination - Vital Signs Temperature: 97.1 F Blood Pressure: 120/71 Pulse: 85 Respirations: 17 Pulse Ox (%): 99 - Physical Exam General: Alert, In no apparent distress, Cooperative HEENT: Other (Bruise to the right forehead improved) Neck: Supple Respiratory: Clear to auscultation bilaterally Cardiovascular: Irregular heart rate/rhythm (Normal rhythm rate controlled) Gastrointestinal: No tenderness, No masses, No rebound, No guarding Integumentary: Tenderness/swelling (Edema to the lower extremities and upper extremities noted.) Neurological: Normal speech, Normal strength at 5/5 x4 extr, Normal tone - Studies Microbiology Data (last 24 hrs): 09/18/20 10:09 Blood - Blood Gram Stain - Final 09/18/20 10:25 Blood - Blood Blood Culture Gram Stain - Final 09/18/20 10:25 Catheterized Urine [place] Count - Final >100,000 CFU/ML. 09/18/20 10:25 Catheterized Urine - Final Klebsiella Oxytoca Medications List Reviewed: Yes Assessment & Plan Discharge Plan: Other (Long-term acute care facility placement) Plan to discharge in: 48 Hours Physician Review Additional Text: Impression: Multiple falls likely from dehydration with noted acute on chronic renal failure stage 4, possible acute tubular necrosis Acute anemia with history of hemorrhoids and underlying chronic renal disease Hypotension related to sepsis/toxic encephalopathy-UTI(urine culture positive for Klebsiella oxytoca and bacteremia) complicated with severe protein malnutrition, hypoglycemia and anasarca New onset atrial fibrillation Hypertension Hypothyroidism Hyperlipidemia History of colon cancer with recent small-bowel obstruction requiring surgery Multiple falls Plan: Multiple falls likely from dehydration with noted acute on chronic renal failure stage 4, possible acute tubular necrosis: Blood pressure appears stable. Patient given albumin yesterday. Patient with increase edema to the lower extremity and upper today. Will provide albumin. Will decrease IV fluid rate. Patient also had anemia. Lab had difficulty getting lab yesterday. Lab was finally obtained last night. Hemoglobin has dropped from 9.1-5.7. Transfusion given. Will recheck hemoglobin and hematocrit after transfusion. Maintain hemoglobin above 7.0. Patient with history of atrial fibrillation. Patient now normal sinus rhythm or rate control. Patient was high risk for bleeding. P atient on DVT prophylaxis-Lovenox. Patient also with history of hemorrhoids. Patient had some blood in stool, nonmelanotic this a.m.. Will start Protonix. Will need to monitor this closely. If this persists then patient may require GI evaluation. If no GI available and bleeding persists patient may need to be transferred for high-level of care due to lack of GI coverage. Will continue monitor closely. Will discuss further with nephrology. Patient continues on IV antibiotic therapy related to UTI. If patient stable throughout her stay then she will require skilled placement. I will turn the service over to the hospitalist team tomorrow. I will go plan of care with him. Acute anemia with history of hemorrhoids and underlying chronic renal disease: As mentioned above hemoglobin dropped from 9.1 to 5.7. Patient will receive 1 unit of blood. Recheck hemoglobin thereafter. Maintain hemoglobin above 7.0. Patient with history of hemorrhoids. Patient had some rectal bleeding non melenic this a.m.. Will need to monitor this closely. Patient now on Protonix. Patient will likely require further transfusion. If anemia persists will need to consider GI evaluation. If no GI available then patient may need to be transferred. Will monitor this closely. Hypotension related to sepsis/toxic encephalopathy-UTI(urine culture positive for Klebsiella oxytoca and bacteremia) complicated with severe protein malnutrition, hypoglycemia and anasarca: Patient less confused today. Blood pressure stable. Patient on IV antibiotic therapy. Patient received albumin yesterday. Will provide albumin again today. Will decrease IV fluids. Will discuss further with nephrology for further recommendations. Continue with IV fluids but cautious as recommended above by nephrology. Patient will get albumin. Continue Rocephin. Await blood culture results. New onset atrial fibrillation: Patient remains on metoprolol and digoxin for rate control. Will adjust metoprolol and get parameters due to low blood pressure. Patient at risk of bleeding with anemia, bruising, therefore will hold off on full-dose anti coagulation therapy. Patient on Lovenox DVT prophylaxis. Hypertension: Patient on metoprolol. Continue to hold with parameters in place. Hypothyroidism: Continue medication. Hyperlipidemia: LFTs slightly elevated. Will hold medication at this time. History of colon cancer with recent small-bowel obstruction requiring surgery: Overall stable. Patient with history of recent small-bowel obstruction requiring surgery. Multiple Falls: Once medically stable will have physical therapy assess ambulation. Patient will likely require skilled placement at discharge. Time Spent Managing Pts Care (In Minutes): 55
[2020-09-21 09:53] LABS: Albumin 1.8 g/dL (3.4-5.0); Bilirubin Total 0.6 mg/dL (0.2-1.0); Ferritin 1937.3 ng/mL (8-388); Potassium 3.5 mmol/L (3.5-5.1); Protein, Total 5.1 g/dL (6.4-8.2)
[2020-09-21 09:59] LABS: Absolute Lymphocytes (CBC) 2.9 K/uL (0.7-4.9); Basophils % 0.1 % (0-1.3); Hematocrit 23.1 % (36.0-45.0); RBC Red Blood Cell Count 2.57 M/uL (3.86-4.86); Transferrin < 35 mg/dL (200-360)
[2020-09-21 10:01] LABS: Magnesium 1.4 mg/dL (1.8-2.4)
[2020-09-21] MEDS ORDERED: NA CHLORIDE 0.9% 100 ML ONE (10:40)
[2020-09-21] MEDS ORDERED: D5 0.45 NS 1,000 ML IV ONE (11:17)
[2020-09-21] MEDS ORDERED: FUROSEMIDE 20 MG/ 2ML VIAL IV ONE (13:00)
[2020-09-21] MEDS ORDERED: FUROSEMIDE 20 MG/ 2ML VIAL ONE (14:00)
--- NOTE | 2020-09-21 16:13 | PN ---
Date of Progress Note: 09/21/2020 Subjective: The patient was seen and examined at bedside. She is having profuse rectal bleeding. Demian Acuña is unavailable at this time. She is also complaining of some weakness and shortness of breath as tanner gilman. I have discussed with the nurse about discontinuing IV fluids. She continues to be on albumin and also on Rocephin for her sepsis and urinary tract infection. She is also on metoprolol for her a trial fibrillation. Physical Examination: General examination: She appears cachectic and malnourished. The patient was noted to have a hemato ma in her forehead. HEENT: Shows hematoma in the forehead. Lungs: Auscultation of lungs revealed diminished breath sounds at bilateral bases with diminished br eath sounds overall. Heart: Auscultation of the heart revealed irregularly irregular rhythm with mild tachycardia. Extremities: Showed diffuse anasarca in her upper and lower extremities with weeping. Laboratory Data: At this time are showing sodium of 139, potassium of 3.5, chloride of 107, BUN of 1 6, and creatinine of 1.31. Her magnesium is severely low at 1.4 and TSAT is appropriate. CBC showin g a stable hemoglobin, hematocrit, however, she did get 2 units of blood transfusion and got some [place] between the transfusion. Her hemoglobin was 7.5 and hematocrit 23.1 this morning. Current Medications: Have been reviewed in detail. Impression: 1.Acute renal failure secondary to acute tubular necrosis, currently improving. 2.Severe malnutrition. The patient is on albumin to improve her third-spacing and she probably migh t benefit from some Lasix, but for now we will discontinue the IV fluids and monitor her vital signs closely since she also got some blood transfusion that will improve her intravascular status. 3.Urinary tract infection with sepsis. The patient is noted to have a Klebsiella oxytoca in her uri ne as well as blood cultures. She is receiving Rocephin. Continue to monitor and repeat urine and b lood cultures again. 4.Profuse rectal bleeding, possibly from hemorrhoids versus ischemia. The patient will possibly nee d a gastrointestinal evaluation. If it does not get better, she may benefit from being transferred o nv. Plan: Overall the patient's condition is very very guarded at this time. We will discontinue the IV fluids given worsening anasarca and try to give her some Lasix later on if her blood pressure is ove rall stable. Continue antibiotics and albumin for now and monitor her closely. VV/MODL Voice ID: [id number] Report ID: [id number]
--- NOTE | 2020-09-21 17:45 | RAD REPORT ---
EXAM DESCRIPTION: RAD - Chest Single View - 09/21/2020 12:39 am CLINICAL HISTORY: 80 years Female, picc line placement COMPARISON: None. TECHNIQUE: Single portable x-ray view of the chest performed on 09/21/2020 at 12:08 AM FINDINGS: The lungs are well-expanded. There is volume loss in the left lung base which may be due t o a combination of pleural fluid and atelectasis. There is trace blunting of the right lateral costop hrenic sulcus. A small right pleural effusion is not excluded. The lungs are otherwise grossly clear. There is no evidence of a pneumothorax. The cardiac silhouette is normal in size and configuration. The mediastinal contours are normal. No acute osseous abnormality is identified. No focal soft tissue abnormalities are seen. Lines and tubes: The right upper extremity PICC line catheter tip terminates in the region of the s uperior vena cava. IMPRESSION: 1. The tip of the right upper extremity PICC line catheter appears to project over the r egion of the superior vena cava. 2. Volume loss in the left lung base and trace blunting of the right lateral costophrenic sulcus whic h may be due to pleural fluid and atelectasis. Electronically signed by: Marley Maradiaga DO 09/21/2020 12:48 AM TEST CONDUCTOR Due to temporary technical issues with the PACS/Fluency reporting system, reports are being signed by the in house radiologists without review as a courtesy to insure prompt reporting. The interpreting radiologist is fully responsible for the content of the report.
[2020-09-21] MEDS: ATORVASTATIN 10 MG TAB PO SCH (21:10)
[2020-09-21] MEDS ORDERED: MAGNESIUM SULFATE 1 gm IVPB 1 GM/100 ML BAG IV ONE ×2 (21:45→22:00)
[2020-09-22 05:44] LABS: Absolute Lymphocytes (CBC) 2.3 K/uL (0.7-4.9); Basophils % 0.2 % (0-1.3); Hematocrit 26.2 % (36.0-45.0); Lymphocytes % 39.9 % (15.3-44.8); MPV 10.2 fL (7.6-11.3); RBC Red Blood Cell Count 2.96 M/uL (3.86-4.86)
[2020-09-22] MEDS ORDERED: METOPROLOL TAR 25 MG TAB ONE (05:44)
[2020-09-22 05:57] LABS: Magnesium 1.9 mg/dL (1.8-2.4); Potassium 3.3 mmol/L (3.5-5.1)
[2020-09-22] MEDS: METOPROLOL TAR 25 MG TAB PO SCH ×2 (06:00→17:36)
[2020-09-22] MEDS: LEVOTHYROXINE SOD 0.05 MG TABLET PO SCH (06:12)
[2020-09-22] MEDS: ENSURE ENLIVE 237 ML CAN PO SCH ×2 (09:00→21:00)
[2020-09-22] MEDS ORDERED: POTASSIUM CL SA 10 MEQ TAB PO ONE ×3 (09:00→09:31)
[2020-09-22] MEDS: THIAMINE HCL 100 MG TABLET PO SCH ×2 (09:00→09:10)
[2020-09-22 09:05] LABS: Blood Morphology Comment NOT SEEN (NOT SEEN); Platelet Estimate DECR; White Blood Cell Scan OK (OK)
[2020-09-22] MEDS: ASPIRIN EC 81 MG TAB PO SCH (09:10)
[2020-09-22] MEDS: CEFTRIAXONE/SWI 1gm 1 GM/10 ML SYR IV SCH (09:10)
[2020-09-22] MEDS: FUROSEMIDE 20 MG TABLET PO SCH (09:11)
[2020-09-22] MEDS: DIGOXIN 0.25 MG TABLET PO SCH (09:11)
[2020-09-22] MEDS: FOLIC ACID 1 MG TABLET PO SCH (09:11)
[2020-09-22] MEDS: PANTOPRAZOLE 40 MG INJ IVP SCH (09:12)
[2020-09-22] MEDS ORDERED: DIGOXIN 0.25 MG TABLET ONE (09:20)
[2020-09-22] MEDS ORDERED: FUROSEMIDE 20 MG TABLET ONE (09:20)
[2020-09-22] MEDS ORDERED: PANTOPRAZOLE 40MG TABLET PO ONE (09:20)
[2020-09-22] MEDS ORDERED: FOLIC ACID 1 MG TABLET ONE (09:21)
[2020-09-22] MEDS ORDERED: ASPIRIN EC 81 MG TAB PO ONE (09:21)
[2020-09-22] MEDS ORDERED: CEFTRIAXONE/SWI 1gm 1 GM/10 ML SYR ONE (09:21)
[2020-09-22] MEDS ORDERED: PANTOPRAZOLE 40 MG INJ ONE (09:21)
[2020-09-22] MEDS ORDERED: THIAMINE HCL 100 MG TABLET ONE (09:22)
--- NOTE | 2020-09-22 09:45 | P.PN ---
Subjective Date of Service: 09/22/20 (hospitalist) Primary Care Provider: Dr. Cordero; Nephrology-Dr. Yang; Oncology-Dr. Kaur Chief Complaint: Frequent fall No change in patient's condition not very responsive still has some bloody stools from her hemorrhoids mildly hypokalemic Review of Systems is unable to be obtained Physical Examination - Vital Signs Temperature: 97 F Blood Pressure: 118/69 Pulse: 92 Respirations: 21 Pulse Ox (%): 99 - Physical Exam General: Unresponsive Respiratory: Clear to auscultation bilaterally Cardiovascular: Edema Gastrointestinal: Normal bowel sounds, Soft and benign - Studies Microbiology Data (last 24 hrs): 09/18/20 10:09 Blood - Blood Gram Stain - Final 09/18/20 10:25 Blood - Blood Blood Culture Gram Stain - Final Medications List Reviewed: Yes Assessment & Plan - Problems (Diagnosis) (1) Cystitis Current Visit: Yes Status: Acute Plan: Patient has Klebsiella in the urine currently on Rocephin patient is not eating and drinking will insert alonso is start tube feeds replace potassium (2) Multiple falls Current Visit: Yes Status: Acute Plan: Patient is stable to be transferred to the floor physical therapy transfer long- term care facility hold Lovenox due to anemia and bleeding (3) Atrial fibrillation Current Visit: Yes Status: Acute Plan: Rate control continue with beta-blockers Qualifiers: Atrial fibrillation type: unspecified chronic Qualified Code(s): I48.20 - Chronic atrial fibrillation, unspecified; I48.2 - Chronic atrial fibrillation Physician Review Additional Text: Impression: Multiple falls likely from dehydration with noted acute on chronic renal failure stage 4, possible acute tubular necrosis Acute anemia with history of hemorrhoids and underlying chronic renal disease Hypotension related to sepsis/toxic encephalopathy-UTI(urine culture positive for Klebsiella oxytoca and bacteremia) complicated with severe protein malnutrition, hypoglycemia and anasarca New onset atrial fibrillation Hypertension Hypothyroidism Hyperlipidemia History of colon cancer with recent small-bowel obstruction requiring surgery Multiple falls Plan: Multiple falls likely from dehydration with noted acute on chronic renal failure stage 4, possible acute tubular necrosis: Blood pressure appears stable. Patient given albumin yesterday. Patient with increase edema to the lower extremity and upper today. Will provide albumin. Will decrease IV fluid rate. Patient also had anemia. Lab had difficulty getting lab yesterday. Lab was finally obtained last night. Hemoglobin has dropped from 9.1-5.7. Transfusion given. Will recheck hemoglobin and hematocrit after transfusion. Maintain hemoglobin above 7.0. Patient with history of atrial fibrillation. Patient now normal sinus rhythm or rate control. Patient was high risk for bleeding. Patient on DVT prophylaxis-Lovenox. Patient also with history of hemorrhoids. Patient had some blood in stool, nonmelanotic this a.m.. Will start Protonix. Will need to monitor this closely. If this persists then patient may require GI evaluation. If no GI available and bleeding persists patient may need to be transferred for high-level of care due to lack of GI coverage. Will continue monitor closely. Will discuss further with nephrology. Patient continues on IV antibiotic therapy related to UTI. If patient stable throughout her stay then she will require skilled placement. I will turn the service over to the hospitalist team tomorrow. I will go plan of care with him. Acute anemia with history of hemorrhoids and underlying chronic renal disease: As mentioned above hemoglobin dropped from 9.1 to 5.7. Patient will receive 1 unit of blood. Recheck hemoglobin thereafter. Maintain hemoglobin above 7.0. Patient with history of hemorrhoids. Patient had some rectal bleeding non melenic this a.m.. Will need to monitor this closely. Patient now on Protonix. Patient will likely require further transfusion. If anemia persists will need to consider GI evaluation. If no GI available then patient may need to be transferred. Will monitor this closely. Hypotension related to sepsis/toxic encephalopathy-UTI(urine culture positive for Klebsiella oxytoca and bacteremia) complicated with severe protein malnutrition, hypoglycemia and anasarca: Patient less confused today. Blood pressure stable. Patient on IV antibiotic therapy. Patient received albumin yesterday. Will provide albumin again today. Will decrease IV fluids. Will discuss further with nephrology for further recommendations. Continue with IV fluids but cautious as recommended above by nephrology. Patient will get albumin. Continue Rocephin. Await blood culture results. New onset atrial fibrillation: Patient remains on metoprolol and digoxin for rate control. Will adjust metoprolol and get parameters due to low blood pressure. Patient at risk of bleeding with anemia, bruising, therefore will hold off on full-dose anti coagulation therapy. Patient on Lovenox DVT prophylaxis. Hypertension: Patient on metoprolol. Continue to hold with parameters in place. Hypothyroidism: Continue medication. Hyperlipidemia: LFTs slightly elevated. Will hold medication at this time. History of colon cancer with recent small-bowel obstruction requiring surgery: Overall stable. Patient with history of recent small-bowel obstruction requiring surgery. Multiple Falls: Once medically stable will have physical therapy assess ambulation. Patient will likely require skilled placement at discharge.
[2020-09-22] MEDS ORDERED: POTASSIUM 25 MEQ EFFERV TAB PO ONE ×2 (09:47→18:00)
--- NOTE | 2020-09-22 12:51 | RAD REPORT ---
EXAM DESCRIPTION: RAD - Chest Single View - 09/22/2020 11:58 am CLINICAL HISTORY: dobhoff placement Chest pain. COMPARISON: Chest Single View dated 09/21/2020; Chest Single View dated 09/18/2020; Chest Single Vie w dated 06/21/2020; Abdomen 1 View (KUB) dated 06/20/2020 FINDINGS: Portable technique limits examination quality. Tip of the enteric tube is in the stomach.
[2020-09-22] MEDS: JEVITY 1.2 CAL LIQUID 1,000 ML BOT FT SCH (21:00)
[2020-09-22] MEDS: ATORVASTATIN 10 MG TAB PO SCH (22:31)
[2020-09-23 06:37] LABS: Potassium 4.1 mmol/L (3.5-5.1)
[2020-09-23] MEDS: METOPROLOL TAR 25 MG TAB PO SCH ×2 (06:50→18:08)
[2020-09-23] MEDS: LEVOTHYROXINE SOD 0.05 MG TABLET PO SCH (06:51)
[2020-09-23] MEDS: ENSURE ENLIVE 237 ML CAN PO SCH ×3 (09:00→21:00)
[2020-09-23] MEDS: JEVITY 1.2 CAL LIQUID 1,000 ML BOT FT SCH ×3 (09:00→21:00)
[2020-09-23] MEDS ORDERED: CEFTRIAXONE 1 GM/NS 50 ML 1 GM/50 ML BAG IV SCH (09:00)
[2020-09-23] MEDS: FOLIC ACID 1 MG TABLET PO SCH (09:24)
[2020-09-23] MEDS: THIAMINE HCL 100 MG TABLET PO SCH (09:24)
[2020-09-23] MEDS: DIGOXIN 0.25 MG TABLET PO SCH (09:24)
--- NOTE | 2020-09-23 09:50 | P.PN ---
Subjective Date of Service: 09/23/20 Primary Care Provider: Dr. Cordero; Nephrology-Dr. Yang; Oncology-Dr. Kaur Chief Complaint: Bacteremia No change patient is doing well she goes some swollen arms the moved her dobhoff tube Review of Systems is unable to be obtained Physical Examination - Vital Signs Temperature: 97.0 F Blood Pressure: 131/72 Pulse: 75 Respirations: 16 Pulse Ox (%): 94 - Physical Exam General: Alert, Cooperative Neck: Supple Respiratory: Clear to auscultation bilaterally Cardiovascular: Normal S1 S2, Edema Gastrointestinal: Normal bowel sounds, Soft and benign - Studies Microbiology Data (last 24 hrs): 09/18/20 10:09 Blood - Blood Aerobic Blood Culture - Final Klebsiella Oxytoca 09/18/20 10:09 Blood - Blood Anaerobic Blood Culture - Final Klebsiella Oxytoca 09/18/20 10:09 Blood - Blood Gram Stain - Final 09/18/20 10:25 Blood - Blood Aerobic Blood Culture - Final Klebsiella Oxytoca 09/18/20 10:25 Blood - Blood Blood Culture Gram Stain - Final Medications List Reviewed: Yes Assessment & Plan - Problems (Diagnosis) (1) Multiple falls Current Visit: Yes Status: Acute Plan: Patient is stable to be transferred to the floor physical therapy transfer long- term care facility hold Lovenox due to anemia and bleeding (2) Atrial fibrillation Current Visit: Yes Status: Acute Plan: Rate control continue with beta-blockers Qualifiers: Atrial fibrillation type: unspecified chronic Qualified Code(s): I48.20 - Chronic atrial fibrillation, unspecified; I48.2 - Chronic atrial fibrillation (3) Bacteremia due to Klebsiella pneumoniae Current Visit: Yes Status: Acute Plan: Patient is doing better continue with Rocephin vital signs labs unremarkable change to p.o. antibiotics when eating physical therapy console Physician Review Additional Text: Impression: Multiple falls likely from dehydration with noted acute on chronic renal failure stage 4, possible acute tubular necrosis Acute anemia with history of hemorrhoids and underlying chronic renal disease Hypotension related to sepsis/toxic encephalopathy-UTI(urine culture positive for Klebsiella oxytoca and bacteremia) complicated with severe protein malnutrition, hypoglycemia and anasarca New onset atrial fibrillation Hypertension Hypothyroidism Hyperlipidemia History of colon cancer with recent small-bowel obstruction requiring surgery Multiple falls Plan: Multiple falls likely from dehydration with noted acute on chronic renal failure stage 4, possible acute tubular necrosis: Blood pressure appears stable. Patie nt given albumin yesterday. Patient with increase edema to the lower extremity and upper today. Will provide albumin. Will decrease IV fluid rate. Patient also had anemia. Lab had difficulty getting lab yesterday. Lab was finally obtained last night. Hemoglobin has dropped from 9.1-5.7. Transfusion given. Will recheck hemoglobin and hematocrit after transfusion. Maintain hemoglobin above 7.0. Patient with history of atrial fibrillation. Patient now normal sinus rhythm or rate control. Patient was high risk for bleeding. Patient on DVT prophylaxis-Lovenox. Patient also with history of hemorrhoids. Patient had some blood in stool, nonmelanotic this a.m.. Will start Protonix. Will need to monitor this closely. If this persists then patient may require GI evaluation. If no GI available and bleeding persists patient may need to be transferred for high-level of care due to lack of GI coverage. Will continue monitor closely. Will discuss further with nephrology. Patient continues on IV antibiotic therapy related to UTI. If patient stable throughout her stay then she will require skilled placement. I will turn the service over to the hospitalist team tomorrow. I will go plan of care with him. Acute anemia with history of hemorrhoids and underlying chronic renal disease: As mentioned above hemoglobin dropped from 9.1 to 5.7. Patient will receive 1 unit of blood. Recheck hemoglobin thereafter. Maintain hemoglobin above 7.0. Patient with history of hemorrhoids. Patient had some rectal bleeding non melenic this a.m.. Will need to monitor this closely. Patient now on Protonix. Patient will likely require further transfusion. If anemia persists will need to consider GI evaluation. If no GI available then patient may need to be transferred. Will monitor this closely. Hypotension related to sepsis/toxic encephalopathy-UTI(urine culture positive for Klebsiella oxytoca and bacteremia) complicated with severe protein malnutrition, hypoglycemia and anasarca: Patient less confused today. Blood pressure stable. Patient on IV antibiotic therapy. Patient received albumin yesterday. Will provide albumin again today. Will decrease IV fluids. Will discuss further with nephrology for further recommendations. Continue with IV fluids but cautious as recommended above by nephrology. Patient will get albumin. Continue Rocephin. Await blood culture results. New onset atrial fibrillation: Patient remains on metoprolol and digoxin for rate control. Will adjust metoprolol and get parameters due to low blood pressure. Patient at risk of bleeding with anemia, bruising, therefore will hold off on full-dose anti coagulation therapy. Patient on Lovenox DVT prophyla xis. Hypertension: Patient on metoprolol. Continue to hold with parameters in place. Hypothyroidism: Continue medication. Hyperlipidemia: LFTs slightly elevated. Will hold medication at this time. History of colon cancer with recent small-bowel obstruction requiring surgery: Overall stable. Patient with history of recent small-bowel obstruction requiring surgery. Multiple Falls: Once medically stable will have physical therapy assess ambulation. Patient will likely require skilled placement at discharge.
[2020-09-23] MEDS: CEFTRIAXONE/SWI 1gm 1 GM/10 ML SYR IV SCH (10:59)
[2020-09-23] MEDS: ATORVASTATIN 10 MG TAB PO SCH (21:13)
--- NOTE | 2020-09-23 21:24 | P.PN ---
Subjective Date of Service: 09/23/20 Primary Care Provider: Dr. Cordero; Nephrology-Dr. Yang; Oncology-Dr. Kaur Chief Complaint: Bacteremia patient seen/examined on 2nd floor. reviewed plan with RN. Patient is looking weaker/tired/less alert. nutrition status poor/condition seems to be declining. vs stable. frail. does not answer questions well. looks weak/tired. lungs cta [facility] regular abd soft ext: anasarca labs ordered for tomorrow a/p: severe protein /calorie malnutrition. frailty. falls. healing bruise on right forehead. hypotension. anemia/skylar with ? ckd.anemia/patient looks tired. less interactive. refused feeding tube. did drink couple of protein drinks. low UO due t intravascular depletion/poor po intake (has had about 300ccs for the shift). intravascularly depleted/with 3rd spacing. encourage improved protein intake fall precautions/will benefit from atleast short term PT/rehab improve volume status/encourage po/labs tomorrow. ? if patient would want aggressive measures/if nutrition cannot be maximized and patient refuses tf or does not improve her po intake, she will likely continue to decline. procrit 10,0000 units (retracrit substitution is ok) once today again. reviewed plan with RN. Physical Examination - Vital Signs Temperature: 97.6 F Blood Pressure: 118/59 Pulse: 66 Respirations: 17 Pulse Ox (%): 95 - Studies Microbiology Data (last 24 hrs): 09/18/20 10:25 Blood - Blood Aerobic Blood Culture - Final Klebsiella Oxytoca 09/18/20 10:25 Blood - Blood Blood Culture Gram Stain - Final 09/18/20 10:25 Blood - Blood Anaerobic Blood Culture - Final No growth in 5 days. 09/18/20 10:09 Blood - Blood Aerobic Blood Culture - Final Klebsiella Oxytoca 09/18/20 10:09 Blood - Blood Anaerobic Blood Culture - Final Klebsiella Oxytoca 09/18/20 10:09 Blood - Blood Gram Stain - Final Medications List Reviewed: Yes Assessment & Plan Physician Review Additional Text: Impression: Multiple falls likely from dehydration with noted acute on chronic renal failure stage 4, possible acute tubular necrosis Acute anemia with history of hemorrhoids and underlying chronic renal disease Hypotension related to sepsis/toxic encephalopathy-UTI(urine culture positive for Klebsiella oxytoca and bacteremia) complicated with severe protein malnutrition, hypoglycemia and anasarca New onset atrial fibrillation Hypertension Hypothyroidism Hyperlipidemia History of colon cancer with recent small-bowel obstruction requiring surgery Multiple falls Plan: Multiple falls likely from dehydration with noted acute on chronic renal failure stage 4, possible acute tubular necrosis: Blood pressure appears stable. Patient given albumin yesterday. Patient with increase edema to the lower extremity and upper today. Will provide albumin. Will decrease IV fluid rate. Patient also had anemia. Lab had difficulty getting lab yesterday. Lab was finally obtained last night. Hemoglobin has dropped from 9.1-5.7. Transfusion given. Will recheck hemoglobin and hematocrit after transfusion. Maintain hemoglobin above 7.0. Patient with history of atrial fibrillation. Patient now normal sinus rhythm or rate control. Patient was high risk for bleeding. Patient on DVT prophylaxis-Lovenox. Patient also with history of hemorrhoids. Patient had some blood in stool, nonmelanotic this a.m.. Will start Protonix. Will need to monitor this closely. If this persists then patient may require GI evaluation. If no GI available and bleeding persists patient may need to be transferred for high-level of care due to lack of GI coverage. Will continue monitor closely. Will discuss further with nephrology. Patient continues on IV antibiotic therapy related to UTI. If patient stable throughout her stay then she will require skilled placement. I will turn the service over to the hospit alist team tomorrow. I will go plan of care with him. Acute anemia with history of hemorrhoids and underlying chronic renal disease: As mentioned above hemoglobin dropped from 9.1 to 5.7. Patient will receive 1 unit of blood. Recheck hemoglobin thereafter. Maintain hemoglobin above 7.0. Patient with history of hemorrhoids. Patient had some rectal bleeding non melenic this a.m.. Will need to monitor this closely. Patient now on Protonix. Patient will likely require further transfusion. If anemia persists will need to consider GI evaluation. If no GI available then patient may need to be transferred. Will monitor this closely. Hypotension related to sepsis/toxic encephalopathy-UTI(urine culture positive for Klebsiella oxytoca and bacteremia) complicated with severe protein malnutrition, hypoglycemia and anasarca: Patient less confused today. Blood pressure stable. Patient on IV antibiotic therapy. Patient received albumin yesterday. Will provide albumin again today. Will decrease IV fluids. Will discuss further with nephrology for further recommendations. Continue with IV fluids but cautious as recommended above by nephrology. Patient will get albumin. Continue Rocephin. Await blood culture results. New onset atrial fibrillation: Patient remains on metoprolol and digoxin for rate control. Will adjust metoprolol and get parameters due to low blood pressure. Patient at risk of bleeding with anemia, bruising, therefore will hold off on full-dose anti coagulation therapy. Patient on Lovenox DVT prophylaxis. Hypertension: Patient on metoprolol. Continue to hold with parameters in place. Hypothyroidism: Continue medication. Hyperlipidemia: LFTs slightly elevated. Will hold medication at this time. History of colon cancer with recent small-bowel obstruction requiring surgery: Overall stable. Patient with history of recent small-bowel obstruction requiring surgery. Multiple Falls: Once medically stable will have physical therapy assess am bulation. Patient will likely require skilled placement at discharge.
[2020-09-23] MEDS ORDERED: EPOETIN ALFA-EPBX 10,000 UNIT/ML VIAL SQ SCH (22:00)
[2020-09-24] MEDS: METOPROLOL TAR 25 MG TAB PO SCH ×2 (04:59→18:48)
[2020-09-24] MEDS: LEVOTHYROXINE SOD 0.05 MG TABLET PO SCH (04:59)
[2020-09-24 06:05] LABS: Absolute Lymphocytes (CBC) 3.5 K/uL (0.7-4.9); Basophils % 0.3 % (0-1.3); Hematocrit 23.4 % (36.0-45.0); Lymphocytes % 51.6 % (15.3-44.8); MPV 9.9 fL (7.6-11.3); RBC Red Blood Cell Count 2.63 M/uL (3.86-4.86)
[2020-09-24 06:12] LABS: Potassium 3.9 mmol/L (3.5-5.1)
[2020-09-24] MEDS ORDERED: EPOETIN ALFA-EPBX 10,000 UNIT/ML VIAL SQ SCH (08:00)
[2020-09-24 08:37] LABS: Platelet Estimate DECR; Platelets, Giant FEW; White Blood Cell Scan 0 (OK)
[2020-09-24 08:38] LABS: Blood Morphology Comment NOT SEEN (NOT SEEN)
[2020-09-24] MEDS: POTASSIUM CL SA 10 MEQ TAB PO ONE ×2 (09:00→09:29)
[2020-09-24] MEDS: JEVITY 1.2 CAL LIQUID 1,000 ML BOT FT SCH ×3 (09:00→21:00)
[2020-09-24] MEDS: CEFTRIAXONE/SWI 1gm 1 GM/10 ML SYR IV SCH (09:29)
[2020-09-24] MEDS: THIAMINE HCL 100 MG TABLET PO SCH (09:30)
[2020-09-24] MEDS: ENSURE ENLIVE 237 ML CAN PO SCH ×3 (09:30→21:00)
[2020-09-24] MEDS: FOLIC ACID 1 MG TABLET PO SCH (09:30)
[2020-09-24] MEDS: DIGOXIN 0.25 MG TABLET PO SCH (09:30)
[2020-09-24] MEDS ORDERED: GUAIFENESIN/CODEINE 5ML UCUP PO PRN (09:54)
--- NOTE | 2020-09-24 12:30 | P.PN ---
Subjective Date of Service: 09/24/20 Patient is an 80-year-old female came to the hospital because of generalized weakness and multiple falls. I spoke to the and he states that she started declining about 2 months ago after she came in for surgery for a small intestine mass. Prior to this patient was ambulating fine and was eating wi thout any difficulty. After the surgery, which came back revealing benign mass, patient has declined significantly. She is not ambulating like she used to prior to the surgery. She is no longer able to ambulate. She is having a hard time with her swallowing. She has gotten really weak and debilitated. She is also very malnourished and anorexic. She appears to hold food in her mouth because she is afraid to swallow her food. Will get a modified barium swallow study. She also has multiple blood cell abnormalities. Hemoglobin is low and her platelets are low as well. We may need to get Hematology/Oncology to see the patient as well. Review of Systems 10-point ROS is otherwise unremarkable Physical Examination - Vital Signs Temperature: 97.7 F Blood Pressure: 148/70 Pulse: 60 Respirations: 20 Pulse Ox (%): 92 - Physical Exam General: Alert, In no apparent distress, Oriented x3 Respiratory: Clear to auscultation bilaterally, Normal air movement, Other (Upper airway noise) Cardiovascular: Regular rate/rhythm, Normal S1 S2, No murmurs Gastrointestinal: Normal bowel sounds, Soft and benign, Non-distended, No tenderness Musculoskeletal: No clubbing, No swelling, No tenderness Neurological: Normal strength at 5/5 x4 extr, Sensation intact, Cranial nerves 3-12 intact Lymphatics: No axilla or inguinal lymphadenopathy - Studies Microbiology Data (last 24 hrs): 09/18/20 10:25 Blood - Blood Aerobic Blood Culture - Final Klebsiella Oxytoca 09/18/20 10:25 Blood - Blood Blood Culture Gram Stain - Final 09/18/20 10:25 Blood - Blood Anaerobic Blood Culture - Final No growth in 5 days. 09/18/20 10:09 Blood - Blood Aerobic Blood Culture - Final Klebsiella Oxytoca 09/18/20 10:09 Blood - Blood Anaerobic Blood Culture - Final Klebsiella Oxytoca 09/18/20 10:09 Blood - Blood Gram Stain - Final Medications List Reviewed: Yes Assessment & Plan - Problems (Diagnosis) (1) Malnutrition Current Visit: Yes Status: Acute (2) Dysphagia Current Visit: Yes Status: Acute (3) Anemia Current Visit: Yes Status: Acute (4) Thrombocytopenia Current Visit: Yes Status: Acute (5) Atrial fibrillation Current Visit: Yes Status: Acute Qualifiers: Atrial fibrillation type: unspecified chronic Qualified Code(s): I48.20 - Chronic atrial fibrillation, unspecified; I48.2 - Chronic atrial fibrillation (6) Acute renal failure Current Visit: No Status: Acute (7) Small bowel obstruction Current Visit: No Status: Acute (8) Generalized weakness Current Visit: Yes Status: Acute - Advance Directives Does patient have a Living Will: No Does patient have a Durable POA for Healthcare: Yes
--- NOTE | 2020-09-24 12:49 | PN ---
Date of Progress Note: 09/24/2020 Subjective: Patient is seen at the bedside. The patient is very weak at this time. She is able to open her eyes and communicate. She is complaining about a cough, which she states is productive. Sh goran did demonstrate a cough for me and she does have significant phlegm production. She is afebrile. Remains on Rocephin. From renal perspective, renal function and electrolytes have remained stable. Patient did require blood transfusions and hemoglobin monitoring has shown a trend downward of her he moglobin. Potassium fortunately has remained stable. Objective: Vital Signs: Blood pressure 148/70, pulse 60, temperature 97.7. General: No acute distress. Pale. Heart: Regular rate and rhythm. No murmurs, rubs, gallops. Lungs: Very, very poor exam secondary to patient's inability to take full breath. Abdomen: Soft, nontender. Extremities: With 1 to 2+ edema. Laboratory Data: Potassium 3.9, BUN and creatinine are 11 and 0.87. Current Medications: Reviewed. Patient did receive 1 dose of Epogen today. Continues on thiamin. Did receive potassium 1 dose. Impression: 1.Acute kidney injury, which has improved. 2.Electrolyte imbalance. 3.Volume overload. 4.Frailty. 5.Recurring anemia. 6.Thrombocytopenia. 7.Iron deficiency. Plan: The patient's renal function is stable. Please encourage p.o. intake. The patient should hav e adequate fluid intake as well. Otherwise, she is a high risk for a volume depletion. We would rec ommend very very conservative diuresis in this patient with frequent lab monitoring if it is undertak en for her volume status. Consider broadening antibiotics for possible underlying pneumonia or bronchitis. Consider repeat tra nsfusion for anemia. The patient will need iron replenishment given the low iron levels. If that lozano s not been undertaken, patient may benefit from Venofer 200 mg IV daily. This patient has no evidence of GI bleed. The patient may benefit from serum protein electrophoresis to ensure that there is no obvious monoclonal process. We will defer management at this time to [facility] team unless necessary. Avoid NSAIDs. Avoid contrast. We will continue to follow. SE/MODL Voice ID: [id number] Report ID: [id number]
--- NOTE | 2020-09-24 14:37 | RAD REPORT ---
EXAM DESCRIPTION: RAD - Barium Swallow Modified - 09/24/2020 2:25 pm CLINICAL HISTORY: Dysphagia/CVA symptomatology FINDINGS: ASPIRATION : NO COUGH WITH THIN PHARYNGEAL RESIDUE: VALLECULAR WITH HONEY AND PUDDING , PYRIFORM MILD WITH THIN OTHER : 2-3 SEC SWALLOW DELAY, DECREASED EPIGLOTTIC INVERSION FLUORO TIME 3.23 MIN 15 fluoroscopic spot images obtained
--- NOTE | 2020-09-24 15:49 | CON ---
History Of Present Illness: The patient is an 80-year-old female. I was consulted for rash to the g roin area. The patient is not a good historian. Most of the history was obtained through medical re cord. The patient had bowel obstruction surgery done 2 months ago. She came in because of multiple falls. The patient denies any other problems at this time. Feeling slightly better today. Past Medical History: Includes hypertension, colon cancer in 2013, chemotherapy/radiation therapy, h ypothyroidism, hyperlipidemia, hysterectomy, tubal ligation first and then small bowel resection, and anastomosis. Social History: Nonsmoker, nondrinker. Family History: Noncontributory. Medications: Rocephin. See MARs for other medications. Allergies: NO KNOWN DRUG ALLERGIES. Review of Systems: A 10-point review was performed. Physical Examination: General: This is an 80-year-old female, lying in bed, not in any acute cardiopulmonary distress. HEENT: Bruising noted onto the right frontal area. Neck: Supple. Lungs: Basal crackles. Heart: S1, S2. Regular. Abdomen: Soft, nontender. Bowel sounds present. Extremities: Trace edema. Laboratory Data: Shows WBC 6.7, hemoglobin 8, platelets are 68. Chemistry shows sodium 145, potassi um 3.9, chloride 111, bicarb 31, BUN 11, creatinine 0.8, glucose is 61. Micro data shows urine cultu res are growing Klebsiella oxytoca. Blood cultures are growing Klebsiella oxytoca, sensitive to Roce phin. Erythematous rash noted in the groin area. No open wounds noted at this time. Assessment And Plan: Fungal versus moisture-associated dermatitis. We will recommend antifungal and barrier cream to the site. Urinary tract infection, bacteremia, being treated properly with Rocephi n, total course of 2 weeks recommended. Continue supportive care and consider starting probiotic. W e will follow the patient as needed. Thank you Dr. Saldaña for consult. NF/KHANHL Voice ID: [id number] Report ID: [id number]
[2020-09-24] MEDS: ATORVASTATIN 10 MG TAB PO SCH (23:06)
[2020-09-25 05:37] LABS: Absolute Lymphocytes (CBC) 3.8 K/uL (0.7-4.9); Basophils % 0.2 % (0-1.3); Hematocrit 22.8 % (36.0-45.0); MPV 9.4 fL (7.6-11.3); RBC Red Blood Cell Count 2.52 M/uL (3.86-4.86)
[2020-09-25 05:39] LABS: Lymphocytes % 51.2 % (15.3-44.8)
[2020-09-25] MEDS: METOPROLOL TAR 25 MG TAB PO SCH ×2 (06:06→16:07)
[2020-09-25] MEDS: LEVOTHYROXINE SOD 0.05 MG TABLET PO SCH (06:08)
[2020-09-25 06:22] LABS: ALT/SGPT 35 U/L (12-78); AST/SGOT 46 U/L (15-37); Albumin 1.3 g/dL (3.4-5.0); Alkaline Phosphatase 118 U/L (45-117); BUN Blood Urea Nitrogen 10 mg/dL (7-18); Bicarbonate 32 mmol/L (21-32); Bilirubin Total 0.3 mg/dL (0.2-1.0); Folic Acid, (Folate) 12.1 ng/mL (3.1-17.5); Glucose Level 61 mg/dL (74-106); Magnesium 1.5 mg/dL (1.8-2.4); Phosphorus 2.2 mg/dL (2.5-4.9); Potassium 3.8 mmol/L (3.5-5.1); Protein, Total 4.4 g/dL (6.4-8.2); Sodium Level 146 mmol/L (136-145)
[2020-09-25] MEDS ORDERED: Magnesium Sulfate 2gm IVPB 2 G/50 ML BAG IV ONE (06:43)
[2020-09-25] MEDS: ENSURE ENLIVE 237 ML CAN PO SCH ×3 (09:00→12:52)
[2020-09-25] MEDS ORDERED: POTASSIUM PHOS 10 MM in NA CHLORIDE 0.9% 250 ML IV ONE (09:00)
[2020-09-25] MEDS: JEVITY 1.2 CAL LIQUID 1,000 ML BOT FT SCH ×3 (09:00→12:40)
[2020-09-25] MEDS: DIGOXIN 0.25 MG TABLET PO SCH (09:00)
[2020-09-25] MEDS ORDERED: KCL 20 MEQ/100 mL IVPB 20 MEQ/100 ML BAG IV SCH (09:00)
[2020-09-25] MEDS: FOLIC ACID 1 MG TABLET PO SCH (09:33)
[2020-09-25] MEDS: CEFTRIAXONE/SWI 1gm 1 GM/10 ML SYR IV SCH (09:33)
[2020-09-25] MEDS: THIAMINE HCL 100 MG TABLET PO SCH (09:33)
[2020-09-25] MEDS ORDERED: HYDROCORTISONE SUC 100 MG INJ IV ONE (09:46)
[2020-09-25] MEDS ORDERED: SOD FERRIC GLUC COMPLX/SUCROSE 250 MG in NA CHLORIDE 0.9% 250 ML IV SCH (10:15)
[2020-09-25 10:18] VITALS: O2SAT 94
[2020-09-25 13:12] LABS: Absolute Lymphocytes (CBC) 3.1 K/uL (0.7-4.9); Basophils % 0.2 % (0-1.3); MPV 9.5 fL (7.6-11.3); RBC Red Blood Cell Count 2.64 M/uL (3.86-4.86)
[2020-09-25 13:35] LABS: Magnesium 1.8 mg/dL (1.8-2.4); Potassium 3.8 mmol/L (3.5-5.1)
[2020-09-25] MEDS ORDERED: CALCIUM GLUC 10% INJ 4.65 MEQ in NA CHLORIDE 0.9% 100 ML IV ONE (16:00)
[2020-09-25 16:08] VITALS: BP 111/55
[2020-09-25 18:45] VITALS: TEMP 97.1
--- NOTE | 2020-09-25 20:53 | P.PN ---
Date of Service: 09/25/20 Vital Signs Temp Pulse Resp BP Pulse Ox 97.1 F 52 15 111/55 L 95 09/25/20 16:00 09/25/20 16:07 09/25/20 16:00 09/25/20 16:07 09/25/20 16:00 Microbiology Results 09/18/20 10:25 Blood - Blood Aerobic Blood Culture - Final Klebsiella Oxytoca 09/18/20 10:25 Blood - Blood Blood Culture Gram Stain - Final 09/18/20 10:25 Blood - Blood Anaerobic Blood Culture - Final No growth in 5 days. 09/18/20 10:09 Blood - Blood Aerobic Blood Culture - Final Klebsiella Oxytoca 09/18/20 10:09 Blood - Blood Anaerobic Blood Culture - Final Klebsiella Oxytoca 09/18/20 10:09 Blood - Blood Gram Stain - Final 09/18/20 10:25 Catheterized Urine [place] Count - Final >100,000 CFU/ML. 09/18/20 10:25 Catheterized Urine - Final Klebsiella Oxytoca 09/18/20 11:21 Nasopharnyx Coronavirus COVID-19 PCR - Final Assessment/ Plan: Nephrology Weakness and malaise. CPS stable without CP or SOB. No acute events overnight. Vitals, medications, blood work and imaging reviewed in the chart. NAD. MMM. Neck supple. CTA. RRR. Soft Abd. No C/C. LE Edema 1+. AAO. Normal speech. A/ Proteinuria Hypernatremia Hypokalemia Hypocalcemia Hypomagnesemia Severe malnutrition Anemia in chronic illness P/ Continue current POC and Medications. Recommend Vitamin D. Replete lytes prn. Encourage nutrition. PT as tolerated. No NSAIDs. AM labs prn. Daily weight.
--- NOTE | 2020-09-28 15:53 | P.DS ---
Discharge Date: 09/25/20 Primary Care Provider: Dr. Cordero; Nephrology-Dr. Yang; Oncology-Dr. Kaur Disposition: TRANSFER TO SNF - REHAB Discharge Condition: GOOD Reason for Admission: Bacteremia - Problems (1) Malnutrition Status: Acute (2) Dysphagia Status: Acute (3) Anemia Status: Acute (4) Thrombocytopenia Status: Acute (5) Atrial fibrillation Status: Acute Qualifiers: Atrial fibrillation type: unspecified chronic Qualified Code(s): I48.20 - Chronic atrial fibrillation, unspecified; I48.2 - Chronic atrial fibrillation (6) Acute renal failure Status: Acute (7) Small bowel obstruction Status: Acute (8) Generalized weakness Status: Acute Brief History of Present Illness: Patient is an 80-year-old female with history of hypertension, hypothyroidism, and history of rectal cancer. Patient presented to the emergency room with increased falls. Patient was hospitalized about 2 months ago for bowel obstruction. She required surgery at that time. brought the patient to the ER due to increased fa lls. She has had poor appetite over the past week. Multiple falls have occurred. She denies any significant chest pain, shortness of breath. She denies any fever, chills, nausea or vomiting. She is unsure why she has decreased appetite. Patient reports regular bowel movement. No dysuria noted. In the ER patient was evaluated. Patient was found to be in atrial fibrillation. Blood pressure and heart rate initially within normal range. Heart rate would go up into the 140s to 150s. Patient was given IV fluid bolus along with digoxin and Cardizem 10 mg x2.CBC shows a white count of 8.4, hemoglobin 9.1. Sodium 137, potassium 3.7. BUN of 21, creatinine 1.95 with a GFR of 25. Glucose 62. Lactic acid 2.3. Pro calcitonin unremarkable. Calcium 3.3. Magnesium 1.4. Urinalysis shows no bacteria. Chest x-ray unremarkable. Patient admitted for further evaluation. When I saw the patient ER, blood pressure stable at this time. Heart rate much improved in within normal range. Patient still in atrial fibrillation. AFib is new for the patient. Hospital Course: Patient atrial fibrillation was controlled. Patient is clinically doing better. She still really weak and the family has decided to take her to [facility]. Patient's has been at bedside throughout her hospitalization. She does appear to be malnourished and we did a swallow of study. Speech therapy saw the patient and they recommended Thin puree, [place]-thick liquids, Crushed medications as patient had moderate-severe pharyngeal dysphagia. Patient will need physical therapy to continue strengthening her. She has had some falls that has made it a little more difficult for her to regain her strength. At this time, patient is stable for discharge home. Vital Signs/Physical Exam: Temp Pulse Resp BP Pulse Ox 97.1 F 52 15 111/55 L 95 09/25/20 16:00 09/25/20 16:07 09/25/20 16:00 09/25/20 16:07 09/25/20 16:00 General: Alert, In no apparent distress, Oriented x3 Laboratory Data at Discharge: WBC 6.4 K/uL (4.3-10.9) D 09/25/20 12:56 Hgb 7.9 g/dL (12.0-15.0) L* 09/25/20 12:56 Hct 24.0 % (36.0-45.0) L 09/25/20 12:56 Plt Count 72 K/uL (152-406) L D 09/25/20 12:56 PT 16.7 SECONDS (9.5-12.5) H 09/18/20 10:09 INR 1.43 09/18/20 10:09 Sodium 144 mmol/L (136-145) 09/25/20 12:56 Potassium 3.8 mmol/L (3.5-5.1) 09/25/20 12:56 BUN 9 mg/dL (7-18) 09/25/20 12:56 Creatinine 0.73 mg/dL (0.55-1.3) 09/25/20 12:56 Glucose 92 mg/dL (74-106) 09/25/20 12:56 Phosphorus 2.0 mg/dL (2.5-4.9) L 09/25/20 12:56 Magnesium 1.8 mg/dL (1.8-2.4) 09/25/20 12:56 Total Bilirubin 0.3 mg/dL (0.2-1.0) 09/25/20 05:18 AST 46 U/L (15-37) H 09/25/20 05:18 ALT 35 U/L (12-78) 09/25/20 05:18 Alkaline Phosphatase 118 U/L (45-117) H 09/25/20 05:18 Troponin I 0.04 ng/mL (0.0-0.045) 09/19/20 00:34 Triglycerides MANAGER TRANSPORTATION 09/19/20 14:50 Cholesterol MANAGER TRANSPORTATION 09/19/20 14:50 HDL Cholesterol MANAGER TRANSPORTATION 09/19/20 14:50 Cholesterol/HDL Ratio MANAGER TRANSPORTATION 09/19/20 14:50 Home Medications: Levothyroxine [Synthroid*] 1 tab PO DAILY 09/19/20 Pravastatin Sodium 1 tab PO DAILY 09/19/20 Amox/K Clav [Augmentin 600 MG/5 ML Susp] 5 ml PO BID #60 ml 09/25/20 Atorvastatin Calcium [Lipitor*] 10 mg PO BEDTIME #30 tab 09/25/20 Calcium Carbonate/Vitamin D3 [Oscal 500 + Vit D 200 Iu Tab] 1 tab PO BID #60 tab 09/25/20 Digoxin [Lanoxin*] 0.25 mg PO DAILY #30 tab 09/25/20 Jevity 1.2 Stanton Liquid 300 ml PO TID #1000 ml 09/25/20 Methylprednisolone [Medrol dosepack] 4 mg PO DIRECTED #1 marita 09/25/20 Metoprolol Tartrate [Lopressor*] 12.5 mg PO BID 6AM 6PM #60 tab 09/25/20 Thiamine HCl [Vitamin B-1*] 100 mg PO DAILY #30 tablet 09/25/20 New Medications: Amox/K Clav [Augmentin 600 MG/5 ML Susp] 5 ml PO BID #60 ml Jevity 1.2 Stanton Liquid 300 ml PO TID #1000 ml Digoxin [Lanoxin*] 0.25 mg PO DAILY #30 tab Atorvastatin Calcium [Lipitor*] 10 mg PO BEDTIME #30 tab Metoprolol Tartrate [Lopressor*] 12.5 mg PO BID 6AM 6PM #60 tab Methylprednisolone [Medrol dosepack] 4 mg PO DIRECTED #1 marita Calcium Carbonate/Vitamin D3 [Oscal 500 + Vit D 200 Iu Tab] 1 tab PO BID #60 tab Thiamine HCl [Vitamin B-1*] 100 mg PO DAILY #30 tablet Patient Discharge Instructions: OK TO DC IV AND DC TO JAIL. FOLLOW-UP WITH PRIMARY CARE PROVIDER IN 1-2 DAYS. FOLLOW-UP WITH Nephrology IN 1-2 WEEKS. RETURN TO THE ER IF symptoms worsen. CALL or TEXT DR. SAINI AT [phone] IF ANY QUESTIONS REGARDING HOSPITAL STAY. PLEASE CALL THE FLOOR AT [phone] IF ANY MEDICATION OR NURSING QUESTIONS. Diet: Regular Activity: Physical therapy Followup: Justin Cordero MD [Primary Care Provider] - Time spent managing pt's care (in minutes): 35
== END 2020-09-25 20:27 | DRG 871 ==
LOC: ER 09:27 → ERHOLD 12:09 → 2ND 14:54 → ERHOLD 09-19 13:00 → 2ND 09-22 12:26
PROVIDERS: ADMIT Family Medicine; ATTEND Hospitalist
PROC: 02HV33Z Insertion of Infusion Device into Superior Vena Cava, Percutaneous Approach (ICD-10-PCS; principal; 2020-09-21)
DX: A41.89 Other specified sepsis (principal); E43 Unspecified severe protein-calorie malnutrition; G92 Toxic encephalopathy; N17.0 Acute kidney failure with tubular necrosis; N18.4 Chronic kidney disease, stage 4 (severe); N30.00 Acute cystitis without hematuria; I48.20 Chronic atrial fibrillation, unspecified; K56.609 Unspecified intestinal obstruction, unspecified as to partial versus complete obstruction; E87.0 Hyperosmolality and hypernatremia; I12.9 Hypertensive chronic kidney disease with stage 1 through stage 4 chronic kidney disease, or unspecified chronic kidney disease; E86.0 Dehydration; E03.9 Hypothyroidism, unspecified; E78.5 Hyperlipidemia, unspecified; E83.42 Hypomagnesemia; E83.51 Hypocalcemia; E87.6 Hypokalemia; E16.2 Hypoglycemia, unspecified; D69.6 Thrombocytopenia, unspecified; D63.8 Anemia in other chronic diseases classified elsewhere; B96.1 Klebsiella pneumoniae [K. pneumoniae] as the cause of diseases classified elsewhere; R54 Age-related physical debility; W18.30XA Fall on same level, unspecified, initial encounter; Z91.81 History of falling; Z85.048 Personal history of other malignant neoplasm of rectum, rectosigmoid junction, and anus; Z79.890 Hormone replacement therapy; Z79.899 Other long term (current) drug therapy; Z90.710 Acquired absence of both cervix and uterus; Z98.51 Tubal ligation status; Z68.28 Body mass index [BMI] 28.0-28.9, adult; Z20.828 Contact with and (suspected) exposure to other viral communicable diseases
CPT/HCPCS: 36415; 36569; 51702; 70450; 70496; 70498; 71045; 72125; 74230; 80048; 80053; 80061; 80076; 81003; 82533; 82550; 82553; 82607; 82728; 82746; 83540; 83605; 83735; 83880; 84100; 84132; 84145; 84439; 84443; 84466; 84484; 85014; 85018; 85025; 85044; 85610; 86850; 86900; 86901; 87040; 87077; 87086; 87088; 87186; 87205; 92611; 93005; 93306; 96361; 96374; 96375; 97110; 97161; 97530; 99285; C9113; J0610; J0696; J1160; J1650; J1720; J1940; J2916; J3475; J3480; J7030; J7040; J7050; J7799; P9016; P9047; Q5106; Q9967; U0002